=== PATIENT | female | born 1980 | race Caucasian/White ===

== ENCOUNTER 2017-08-25 10:25 | Emergency (ER) | payer OTHER ==
[2017-08-25 10:32] VITALS: BP 142/77
[2017-08-25] MEDS ORDERED: METOCLOPRAMIDE HCL 10 MG TABLET PO ONE (10:34)
[2017-08-25] MEDS ORDERED: ACETAMINOPHEN WITH CODEINE #3 TABLET PO ONE (10:34)
--- NOTE | 2017-08-25 10:34 | ER Document Report ---
ED General - General Chief Complaint: Leg Pain Stated Complaint: LEFT LEG PAIN Time Seen by Provider: 08/25/17 10:28 Mode of Arrival: Wheelchair Information source: Patient Notes: 37-year-old female presents with complaints of left calf pain that occurred suddenly after feeling a popping sensation when she had stood up. Patient notes last night she was having charley horse sensations in her calf. She denies any other DVT or PE risk factors. Patient denies any chest pain shortness of breath. Patient notes it hurts to ambulate but is able to dorsiflex the foot TRAVEL OUTSIDE OF THE [place] IN LAST 30 DAYS: No - HPI Onset: Just prior to arrival Onset/Duration: Sudden Quality of pain: Cramping, Sharp Severity: Mild Pain Level: 1 Associated symptoms: Body/muscle aches Exacerbated by: Movement Relieved by: Denies Similar symptoms previously: No Recently seen / treated by doctor: No - Related Data Allergies/Adverse Reactions: hydrocodone [Hydrocodone] Allergy (Verified 08/25/17 10:26) Past Medical History - Social History Smoking Status: Never Smoker Cigarette use (# per day): No Chew tobacco use (# tins/day): No Smoking Education Provided: No Family History: Reviewed & Not Pertinent Patient has suicidal ideation: No Patient has homicidal ideation: No - Past Medical History Cardiac Medical History: Reports: Hx Hypercholesterolemia, Hx Hypertension Endocrine Medical History: Reports: Hx Diabetes Mellitus Type 2 Renal/ Medical History: Denies: Hx Peritoneal Dialysis Past Surgical History: Reports: Hx Tonsillectomy - and adenoids - Immunizations Hx Diphtheria, Pertussis, Tetanus Vaccination: Yes Review of Systems - Review of Systems Notes: REVIEW OF SYSTEMS: CONSTITUTIONAL : Denies fever, chills, or sweats. Denies recent illness. EENT: Denies eye, ear, throat, or mouth pain or symptoms. Denies nasal or sinus congestion or discharge. Denies throat, tongue, or mouth swelling or difficulty swallowing. CARDIOVASCULAR: Denies chest pain. Denies palpitations or racing or irregular heart beat. Denies ankle edema. RESPIRATORY: Denies cough, cold, or chest congestion. Denies shortness of breath, difficulty breathing, or wheezing. GASTROINTESTINAL: Denies abdominal pain or distention. Denies nausea, vomiting , or diarrhea. Denies blood in vomitus, stools, or per rectum. Denies black, tarry stools. Denies constipation. GENITOURINARY: Denies difficulty urinating, painful urination, burning, frequency, blood in urine, or discharge. FEMALE GENITOURINARY: Denies vaginal bleeding, heavy or abnormal periods, irregular periods. Denies vaginal discharge or odor. MUSCULOSKELETAL: Admits to left calf pain SKIN: Denies rash, lesions or sores. HEMATOLOGIC : Denies easy bruising or bleeding. LYMPHATIC: Denies swollen, enlarged glands. NEUROLOGICAL: Denies confusion or altered mental status. Denies passing out or loss of consciousness. Denies dizziness or lightheadedness. Denies headache. Denies weakness or paralysis or loss of use of either side. Denies problems with gait or speech. Denies sensory loss, numbness, or tingling. Denies seizures. PSYCHIATRIC: Denies anxiety or stress. Denies depression, suicidal ideation, or homicidal ideation. ALL OTHER SYSTEMS REVIEWED AND NEGATIVE. PHYSICAL EXAMINATION: GENERAL: Well-appearing, well-nourished and in no acute distress. HEAD: Atraumatic, normocephalic. EYES: Pupils equal round and reactive to light, extraocular movements intact, conjunctiva are normal. ENT: Nares patent, oropharynx clear without exudates. Moist mucous membranes. NECK: Normal range of motion, supple without lymphadenopathy LUNGS: Breath sounds clear to auscultation bilaterally and equal. No wheezes rales or rhonchi. HEART: Regular rate and rhythm without murmurs ABDOMEN: Soft, nontender, nondistended abdomen. No guarding, no rebound. No masses appreciated. Female : deferred Musculoskeletal: Normal range of motion, no pitting or edema. No cyanosis. Achilles intact NEUROLOGICAL: Cranial nerves grossly intact. Normal speech, normal gait. Normal sensory, motor exams PSYCH: Normal mood, normal affect. SKIN: Warm, Dry, normal turgor, no rashes or lesions noted. Dictation was performed using [employer] voice recognition software Physical Exam - Vital signs Vitals: Temp Pulse Resp BP Pulse Ox 98.5 F 104 H 18 142/77 H 99 08/25/17 10:29 08/25/17 10:29 08/25/17 10:29 08/25/17 10:29 08/25/17 10:29 Course - Re-evaluation Re-evalutation: 08/25/17 10:38 I have very low suspicion for a DVT, however patient did have cramps in her calf last night. Doppler has been ordered otherwise this appears to be muscular skeletal nature there is no rupture of the Achilles tendon 08/25/17 11:16 Doppler was negative for DVT, I believe this is a muscular skeletal injury, patient will be given crutches orthopedic follow-up pain control and very strict return precautions After performing a Medical Screening Examination, I estimate there is LOW risk for INTRACRANIAL HEMORRHAGE, UNSTABLE SPINE FRACTURE, CENTRAL CORD SYNDROME, CAUDA EQUINA, THORACIC AORTIC DISSECTION, PNEUMOTHORAX, PERFORATED BOWEL, RUPTURED ABDOMINAL AORTIC ANEURYSM, ACUTE TENDON RUPTURE, COMPARTMENT SYNDROME, or OPEN FRACTURE, thus I consider the discharge disposition reasonable. Also, there is no evidence or peritonitis, sepsis, or toxicity. I have reevaluated this patient multiple times and no significant life threatening changes are noted. The patient and I have discussed the diagnosis and risks, and we agree with discharging home to follow-up with their primary doctor with the understanding that symptoms and presentations can change. We also discussed returning to the Emergency Department immediately if new or worsening symptoms occur. We have discussed the symptoms which are most concerning (e.g., bloody stool, fever, changing or worsening pain, vomiting) that necessitate immediate return. - Vital Signs Vital signs: Temp Pulse Resp BP Pulse Ox 98.5 F 104 H 18 142/77 H 99 08/25/17 10:29 08/25/17 10:29 08/25/17 10:29 08/25/17 10:29 08/25/17 10:29 - Diagnostic Test Radiology reviewed: Image reviewed - no dvt, Reports reviewed Discharge - Discharge Clinical Impression: Pain of left calf Condition: Stable Disposition: HOME, SELF-CARE Instructions: Leg Pain Nonspecific ([facility]), Leg Cramps ([facility]) Prescriptions: Acetaminophen with Codeine [Tylenol #3 Tablet] 1 each PO Q4HP PRN #14 tablet PRN Reason: Metoclopramide HCl [Reglan 10 mg Tablet] 1 - 2 tab PO Q6 #25 tablet Forms: Return to Work Referrals: KOURTNEY MARQUIS MD [ACTIVE STAFF] - Follow up in 3-5 days
--- NOTE | 2017-08-25 12:44 | XCELERA REPORT ---
[address] [address] Lower Extremity Venous Evaluation Name: GERALD WORLEY Age: 37 yrs Gender: Female : 1980 Patient Status: Emergency Patient Location: ER Study Date: 08/25/2017 10:54 AM Procedure: Color flow and duplex imaging of the veins of the left lower extremity as well as the right Common Femoral vein. Reason For Study: left lower extremity Ordering Physician: ANIKA SÁNCHEZ Performed By: Syeda Pena Right Sided Venous Evaluation The right common femoral vein is fully compressible. Spontaneous and phasic flow is present in the right common femoral vein. Left Sided Venous Evaluation Normal vessel filling wall to wall, compression and augmentation as well as Colour flow down to the infrageniculate veins. Interpretation Summary No duplex evidence of DVT or obstruction in the left lower extremity nor in the right Common Femoral vein. : ANIKA SÁNCHEZ > Hosea Brown
== END 2017-08-25 11:25 | disposition home or self-care (01) ==
LOC: ER 10:25
DX: M79.605 Pain in left leg (principal)
CPT/HCPCS: 93971; 99283

== ENCOUNTER 2020-07-23 14:02 | Inpatient (IN) | payer OTHER ==
--- NOTE | 2020-07-23 14:15 | ER Document Report ---
ED Medical Screen (RME) - General Chief Complaint: Shortness Of Breath Stated Complaint: SHORT OF BREATH,COUGH,NAUSEA Time Seen by Provider: 07/23/20 14:10 Primary Care Provider: MICKEY HECTOR MD [Primary Care Provider] - Follow up as needed Notes: HPI: 40-year-old obese female presenting to the emergency department complaining of significant shortness of breath over the last 2 to 3 days. Patient began with fatigue and cough mild shortness of breath 6 days ago. Patient had a Covid test at [facility] which resulted positive today. She states she cannot catch her breath today. Reports some chest discomfort with breathing. Patient is on oral control. Has not had any definitive fever but has had myalgia and fatigue PHYSICAL EXAMINATION: Patient is moderately dyspneic and tachypneic. Patient also tachcardic. Pulse oximetry 80% on room air. Lung sounds are decreased throughout. Spoke with Nickie the charge nurse about need for placement given hypoxia I have greeted and performed a rapid initial assessment of this patient. A comprehensive ED assessment and evaluation of the patient, analysis of test results and completion of medical decision making process will be conducted by an additional ED providers. Please note that clinical decision making for this patient was made during the 2019 pandemic of novel coronavirus which caused a significant strain on the healthcare system including at this particular facility. Criteria for admission discharge and level of care decisions as well as treatment decisions have necessarily changed TRAVEL OUTSIDE OF THE [place] IN LAST 30 DAYS: No - Related Data Allergies/Adverse Reactions: hydrocodone [Hydrocodone] Allergy (Verified 08/25/17 10:26) Past Medical History - Past Medical History Cardiac Medical History: Reports: Hx Hypercholesterolemia, Hx Hypertension Endocrine Medical History: Reports: Hx Diabetes Mellitus Type 2 Renal/ Medical History: Denies: Hx Peritoneal Dialysis Past Surgical History: Reports: Hx Tonsillectomy - and adenoids - Immunizations Hx Diphtheria, Pertussis, Tetanus Vaccination: Yes Physical Exam - Vital signs Vitals: Temp Pulse Resp BP Pulse Ox 101.0 F H 125 H 32 H 158/83 H 82 L 07/23/20 14:12 07/23/20 14:12 07/23/20 14:12 07/23/20 14:12 07/23/20 14:12 Course - Vital Signs Vital signs: Temp Pulse Resp BP Pulse Ox 101.0 F H 125 H 32 H 158/83 H 82 L 07/23/20 14:12 07/23/20 14:12 07/23/20 14:12 07/23/20 14:12 07/23/20 14:12 Doctor's Discharge - Discharge Referrals: MICKEY HECTOR MD [Primary Care Provider] - Follow up as needed
[2020-07-23] MEDS ORDERED: NORMAL SALINE 1000 ML 1,000 ML IV ONE (14:46)
[2020-07-23] MEDS ORDERED: ACETAMINOPHEN 650 MG SUPP.RECT PR ONE (14:46)
[2020-07-23 14:53] LABS: HEMATOCRIT 39.2 % (36.0-47.0); HEMOGLOBIN 13.2 g/dL (12.0-15.5); MEAN CORPUSCULAR HEMOGLOBIN 28.4 pg (27.0-33.4); MEAN CORPUSCULAR HGB CONC 33.6 g/dL (32.0-36.0); MEAN CORPUSCULAR VOLUME 84 fl (80-97); PLATELET COUNT 162 10^3/uL (150-450); RED BLOOD COUNT 4.64 10^6/uL (3.72-5.28); RED CELL DISTRIBUTION WIDTH 15.6 % (11.5-14.0); WHITE BLOOD COUNT 4.1 10^3/uL (4.0-10.5)
--- NOTE | 2020-07-23 14:53 | RADIOLOGY REPORT (SQ) ---
EXAM DESCRIPTION: CHEST SINGLE VIEW IMAGES COMPLETED DATE/TIME: 07/23/2020 2:40 pm REASON FOR STUDY: sob COMPARISON: None. EXAM PARAMETERS: NUMBER OF VIEWS: One view. TECHNIQUE: An AP view of the chest was obtained. RADIATION DOSE: NA LIMITATIONS: None. FINDINGS: LUNGS AND PLEURA: Low inspiratory lung volumes and diffuse patchy bilateral parenchymal op acities. There is no sizable pleural effusion or pneumothorax. MEDIASTINUM AND HILAR STRUCTURES: No mediastinal or hilar contour abnormality. HEART AND VASCULAR STRUCTURES: The cardiac silhouette and pulmonary vasculature are within normal reaves its. BONES: No acute findings. HARDWARE: None in the chest. OTHER: No other finding. IMPRESSION: Low inspiratory lung volumes and diffuse patchy bilateral parenchymal opacities. Differ ential considerations include a multifocal pneumonia (including COVID-19), ARDS and pulmonary edema. TECHNICAL DOCUMENTATION: JOB ID: [id number] 2010 [employer]- All Rights Reserved Reading location - IP/workstation name: [email or web address]
[2020-07-23 14:54] LABS: VENOUS BLOOD BASE EXCESS -7.1 mmol/L; VENOUS BLOOD HCO3 16.8 mmol/L (20-32); VENOUS BLOOD PCO2 29.5 mmHg (35-63); VENOUS BLOOD PH 7.37 (7.30-7.42)
[2020-07-23] MEDS ORDERED: DEXAMETHASONE SOD PHOS INJ 10 MG/1 ML VIAL IV ONE (14:56)
--- NOTE | 2020-07-23 15:00 | ER Document Report ---
ED General - General Chief Complaint: Shortness Of Breath Stated Complaint: SHORT OF BREATH,COUGH,NAUSEA Time Seen by Provider: 07/23/20 14:10 TRAVEL OUTSIDE OF THE [place] IN LAST 30 DAYS: No - HPI Notes: Patient is a 40-year-old female presents emergency department for evaluation of fever, cough, vomiting, diarrhea, dyspnea. She just had a positive Covid test earlier this week. Her breathing is worsened. She had a fever yesterday. Her cough has been largely nonproductive. She has had multiple episodes of nonbloody and nonbilious emesis. She has had 2-3 episodes of diarrhea in the last 24 hours. She denies any pain at this time. Her primary issue is difficulty breathing. She denies anosmia. - Related Data Allergies/Adverse Reactions: hydrocodone [Hydrocodone] Allergy (Verified 08/25/17 10:26) Past Medical History - General Information source: Patient - Social History Smoking Status: Never Smoker Drug Abuse: None Family History: Reviewed & Not Pertinent - Past Medical History Cardiac Medical History: Reports: Hx Hypercholesterolemia, Hx Hypertension Endocrine Medical History: Reports: Hx Diabetes Mellitus Type 2 Renal/ Medical History: Denies: Hx Peritoneal Dialysis Past Surgical History: Reports: Hx Tonsillectomy - and adenoids - Immunizations Hx Diphtheria, Pertussis, Tetanus Vaccination: Yes Review of Systems - Review of Systems Constitutional: See HPI EENT: No symptoms reported Cardiovascular: No symptoms reported Respiratory: See HPI Gastrointestinal: See HPI Genitourinary: No symptoms reported Musculoskeletal: No symptoms reported Skin: No symptoms reported Neurological/Psychological: No symptoms reported Physical Exam - Vital signs Vitals: Temp Pulse Resp BP Pulse Ox 101.0 F H 125 H 32 H 158/83 H 82 L 07/23/20 14:12 07/23/20 14:12 07/23/20 14:12 07/23/20 14:12 07/23/20 14:12 - Notes Notes: Is a 40-year-old female who appears her stated age in a moderate amount of distress. She is markedly tachypneic with increased work of breathing. Nailbeds are cyanotic. Vital signs reviewed, please refer to chart. Head is normocephalic, atraumatic. Pupils equal round, reactive to light. Neck is supple without meningismus. Heart sounds are distant. Lungs reveal diminished breath sounds but no wheezes, rales, rhonchi. Difficult to auscultate over BiPAP, set up during the course of my exam. Abdomen is obese, nontender, normoactive bowel sounds throughout. Extremities without clubbing. Posterior calves are nontender. Peripheral pulses are equal. Skin is warm and dry. Patient is awake, alert, neurological exam is nonfocal. Course - Re-evaluation Re-evalutation: 07/23/20 14:59 Patient presents emergency department for evaluation. Upon initial triage, patient was seen by the pit provider to be significantly hypoxic and placed back in her room. She was placed on oxygen per nasal cannula, but she remained cyanotic, and decision was made to initiate BiPAP therapy. She was febrile, I did order Tylenol to be administered rectally, as well as IV dexamethasone given her Covid positive status and significant hypoxia. Septic work-up ordered. Given her vomiting and diarrhea I am inclined to give a liter of fluids, particularly given her tachycardia and fever, as well as her tachypnea, which would be increasing her sensible losses. Patient has improved her oxygenation on BiPAP but she remains markedly tachypneic. Awaiting VBG. Given her Covid positive status I would prefer to defer intubation if possible. 07/23/20 17:20 Patient has remained stable on BiPAP. She is oxygenating between 97 and 99% with a BiPAP setting of 14/10, 60% FiO2. She states that overall she still feels poorly but her breathing feels improved. I spoke with Dr. Hurt. I made him aware of the fact that the CTA has not yet been performed. He asked if the patient could possibly be titrated down to high flow O2. We are still waiting for respiratory to come along to bring the patient to CT. At this point I do have her on a nonrebreather, her respiratory rate is high but she is 92%. We will continue to monitor to see if her oxygenation holds. Otherwise, patient will be admitted to [facility]. 07/23/20 19:54 Rechecked patient. Patient is tolerating high flow, respiratory rate has improved although she still remains intermittently tachypneic. Heart rate 110, she is 93% on room air. She remains overall stable. - Vital Signs Vital signs: Temp Pulse Resp BP Pulse Ox 101.0 F H 125 H 37 H 155/82 H 97 07/23/20 14:12 07/23/20 14:12 07/23/20 16:01 07/23/20 16:01 07/23/20 16:01 - Laboratory Results Result Diagrams: 07/23/20 14:34 07/23/20 14:34 Laboratory Results Interpreted: 07/23/20 07/23/20 07/23/20 14:34 14:34 14:34 RDW 15.6 H VBG pCO2 29.5 L VBG HCO3 16.8 L Sodium 135.0 L Carbon Dioxide 17 L Glucose 147 H AST 53 H Alkaline Phosphatase 222 H 07/23/20 15:00 Chest X-Ray 07/23/20 14:11 IMPRESSION: Low inspiratory lung volumes and diffuse patchy bilateral parenchymal opacities. Differential considerations include a multifocal pneumonia (including COVID-19), ARDS and pulmonary edema. Critical Laboratory Results Reviewed: No Critical Results - Radiology Results Critical Radiology Results Reviewed: No Critical Results Critical Care Note - Critical Care Note Total time excluding time spent on procedures (mins): 45 Discharge - Discharge Clinical Impression: Pneumonia due to COVID-19 virus, Hypoxia Condition: Stable Disposition: ADMITTED INPATIENT Admitting Provider: Blu (Hospitalist) Unit Admitted: [facility]
[2020-07-23 15:11] LABS: ALBUMIN 3.6 g/dL (3.5-5.0); ALKALINE PHOSPHATASE 222 U/L (38-126); ANION GAP 12 (5-19); ASPARTATE AMINO TRANSFERASE 53 U/L (14-36); BILIRUBIN,DIRECT 0.3 mg/dL (0.0-0.4); BILIRUBIN,TOTAL 0.6 mg/dL (0.2-1.3); BLOOD UREA NITROGEN 8 mg/dL (7-20); CALCIUM 8.9 mg/dL (8.4-10.2); CARBON DIOXIDE 17 mmol/L (22-30); CHLORIDE 106 mmol/L (98-107); GLUCOSE 147 mg/dL (75-110); POTASSIUM 4.2 mmol/L (3.6-5.0); TOTAL PROTEIN 6.4 g/dL (6.3-8.2)
[2020-07-23 15:15] LABS: ABSOLUTE MONOCYTES # (MANUAL) 0.4 10^3/uL (0.1-1.4); BASOPHILS % (MANUAL) 0 % (0-2); EOSINOPHILS % (MANUAL) 1 % (0-6); LYMPHOCYTES % (MANUAL) 24 % (13-45); MONOCYTES % (MANUAL) 9 % (3-13); SEGMENTED NEUTROPHILS % (MAN) 66 % (42-78); TOTAL CELLS COUNTED 100
[2020-07-23 15:16] LABS: ANISOCYTOSIS SLIGHT; PLATELET COMMENT ADEQUATE
[2020-07-23 15:22] LABS: NT PRO BNP 56 pg/mL (<125)
[2020-07-23 15:23] LABS: TROPONIN I < 0.012 ng/mL
[2020-07-23 16:59] LABS: A TYPE INFLUENZA AG NEGATIVE (NEGATIVE); B INFLUENZA AG NEGATIVE (NEGATIVE)
[2020-07-23] MEDS ORDERED: MAG HYDROX/AL HYDROX/SIMETH SUSP 30 ML UDCUP PO PRN (17:41)
[2020-07-23] MEDS ORDERED: ONDANSETRON HCL INJ/PF 4 MG/2 ML SDV IV PRN (17:41)
[2020-07-23] MEDS ORDERED: GLUCAGON,HUMAN RECOMB 1 MG INJ IM PRN (17:57)
[2020-07-23] MEDS ORDERED: DEXTROSE 40% GEL 15 GM TUBE PO PRN ×2 (17:57)
[2020-07-23] MEDS ORDERED: DEXTROSE 50%-WATER 25 GM/50 ML DISP.SYRIN IV PRN ×2 (17:57)
[2020-07-23] MEDS ORDERED: AZITHROMYCIN INJ 500 MG VIAL IV ONE (17:58)
[2020-07-23] MEDS ORDERED: AZITHROMYCIN 250 MG TABLET PO SCH (18:00)
[2020-07-23] MEDS ORDERED: GUAIFENESIN/D-METHORPHAN (200-20 MG) SYRUP 10 ML PO PRN (18:02)
--- NOTE | 2020-07-23 18:12 | PDOC H&P ---
History of Present Illness Admission Date/PCP: 07/23/20 17:47 MICKEY HECTOR MD Patient complains of: Shortness of breath, cough History of Present Illness: GERALD WORLEY is a 40 year old female with morbid obesity, diabetes mellitus type 2, hypertension, who presents to the hospital for evaluation of progressive shortness of breath for the past 3 days. She has also been having a worsening cough nonproductive of sputum. She denies any hemoptysis. She also has been spiking fevers. Her symptoms started on Tuesday at which time she went to [facility] in [place] to get tested for Covid. She was informed today that her Covid test came back positive. She had doses associated diarrhea nausea and vomiting. When she presented to the ER, ER provider notifies me that her pulse ox was in the high 70s to low 80s. She was placed on nasal cannula without much improvement and subsequently placed on the BiPAP. She has been tachypneic throughout in the 40s. She is conversationally dyspneic. Past Medical History Cardiac Medical History: Reports: Hyperlipidema, Hypertension Endocrine Medical History: Reports: Diabetes Mellitus Type 2 Past Surgical History Past Surgical History: Reports: Tonsillectomy - and adenoids Social History Information Source: Patient Smoking Status: Never Smoker Electronic Cigarette use?: No Frequency of Alcohol Use: Occasional Hx Recreational Drug Use: No - Advance Directive Resuscitation Status: Full Code Family History Family History: DM, Hypertension Parental Family History Reviewed: Yes Children Family History Reviewed: Yes Sibling(s) Family History Reviewed.: Yes Medication/Allergy Home Medications: Lisinopril 10 mg PO DAILY 07/25/11 Metformin HCl 850 mg PO BID 07/25/11 Zyrtec 10 mg PO DAILY 07/25/11 Ibuprofen [Motrin 800 Mg Tablet] 800 mg PO TID 07/26/11 Famotidine [Pepcid 20 mg Tablet] 20 mg PO DAILY #60 tablet 02/05/15 Acetaminophen with Codeine [Tylenol #3 Tablet] 1 each PO Q4HP PRN #14 tablet 08/25/17 Metoclopramide HCl [Reglan 10 mg Tablet] 1 - 2 tab PO Q6 #25 tablet 08/25/17 Allergies/Adverse Reactions: hydrocodone [Hydrocodone] Allergy (Verified 08/25/17 10:26) Review of Systems Constitutional: PRESENT: chills, fatigue, fever(s) Eyes: ABSENT: visual disturbances Ears: ABSENT: hearing changes Nose, Mouth, and Throat: PRESENT: headache(s) - Occasional Cardiovascular: ABSENT: chest pain Gastrointestinal: PRESENT: diarrhea, nausea, vomiting. ABSENT: abdominal pain Genitourinary: ABSENT: dysuria Musculoskeletal: ABSENT: back pain Integumentary: ABSENT: diaphoresis Neurological: ABSENT: dizziness Endocrine: ABSENT: polyuria Allergic/Immunologic: ABSENT: seasonal rhinorrhea Physical Exam Vital Signs: Temp Pulse Resp BP Pulse Ox 101.0 F H 125 H 37 H 155/82 H 97 07/23/20 14:12 07/23/20 14:12 07/23/20 16:01 07/23/20 16:01 07/23/20 16:01 Intake & Output 07/22/20 07/23/20 07/24/20 06:59 06:59 06:59 Weight 148.5 kg General appearance: PRESENT: cooperative, mild distress, morbidly obese. ABSENT: disheveled, hard of hearing, thin Head exam: PRESENT: normocephalic Eye exam: ABSENT: periorbital swelling Mouth exam: PRESENT: neck supple Neck exam: ABSENT: JVD Respiratory exam: PRESENT: crackles - Diffuse bilateral, symmetrical, tachypnea, other - Gets out of breath when talking. ABSENT: accessory muscle use, decreased breath sounds, wheezes Cardiovascular exam: PRESENT: +S1, +S2, tachycardia. ABSENT: irregular rhythm GI/Abdominal exam: PRESENT: soft. ABSENT: rebound, rigid, tenderness Extremities exam: ABSENT: pedal edema Neurological exam: PRESENT: alert, awake, oriented to person, oriented to place, oriented to time, oriented to situation Psychiatric exam: ABSENT: agitated, anxious Focused psych exam: ABSENT: pressured speech Skin exam: ABSENT: jaundice Results Laboratory Results: 07/23/20 14:34 07/23/20 14:34 07/23/20 07/23/20 07/23/20 14:34 14:34 14:34 WBC 4.1 RBC 4.64 Hgb 13.2 Hct 39.2 MCV 84 MCH 28.4 MCHC 33.6 RDW 15.6 H Plt Count 162 Seg Neutrophils % Not Reportable VBG pH VBG pCO2 VBG HCO3 VBG Base Excess Sodium 135.0 L Potassium 4.2 Chloride 106 Carbon Dioxide 17 L Anion Gap 12 BUN 8 Creatinine 0.65 Est GFR ( Amer) > 60 Glucose 147 H Lactic Acid 1.7 Calcium 8.9 Total Bilirubin 0.6 AST 53 H Alkaline Phosphatase 222 H Total Protein 6.4 Albumin 3.6 07/23/20 14:34 WBC RBC Hgb Hct MCV MCH MCHC RDW Plt Count Seg Neutrophils % VBG pH 7.37 VBG pCO2 29.5 L VBG HCO3 16.8 L VBG Base Excess -7.1 Sodium Potassium Chloride Carbon Dioxide Anion Gap BUN Creatinine Est GFR ( Amer) Glucose Lactic Acid Calcium Total Bilirubin AST Alkaline Phosphatase Total Protein Albumin 07/23/20 14:34 Troponin I < 0.012 NT-Pro-B Natriuret Pep 56 Impressions: Chest X-Ray 07/23/20 14:11 IMPRESSION: Low inspiratory lung volumes and diffuse patchy bilateral p arenchymal opacities. Differential considerations include a multifocal pneumonia (including COVID-19), ARDS and pulmonary edema. Assessment and Plan - Diagnosis (1) Acute respiratory failure with hypoxia Is this a current diagnosis for this admission?: Yes Plan: Significantly hypoxic on presentation secondary to COVID-19 pneumonia. Patient currently requiring BiPAP at 60% FiO2. We will try to transition her to high flow nasal cannula if tolerated to maintain sats above 91%. If unable to tolerate we will try her on CPAP at 10. ABG in the morning (2) Pneumonia due to COVID-19 virus Is this a current diagnosis for this admission?: Yes Plan: Since her symptoms started about 3 days ago. Tested positive outpatient at [facility]. We will obtain records. Dexamethasone IV Started on multivitamin and zinc supplements. Start remdesivir & convalescent plasma We will place patient on empiric antibiotics until we obtain her positive Covid test records. Antipyretics as needed for fever (3) Diarrhea Qualifiers: Diarrhea type: infectious Qualified Code(s): A09 - Infectious gastroenteritis and colitis, unspecified Is this a current diagnosis for this admission?: Yes Plan: Likely secondary to COVID-19. Venous blood gas and BMP shows evidence of non- anion gap metabolic acidosis from diarrhea as well as mild respiratory alkalosis likely from her hyperventilation. Placed on lactated Ringer's (4) Morbid obesity with BMI of 50.0-59.9, adult Is this a current diagnosis for this admission?: Yes Plan: BMI of 54.5. This puts her at significantly increased risk of a complicated COVID-19 course of infection. (5) Diabetes mellitus type 2 in obese Is this a current diagnosis for this admission?: Yes Plan: Sliding scale insulin, Accu-Cheks. ADA diet. - Time Time Spent with patient: 35 or more minutes Anticipated Discharge Disposition: Home, Self Care Anticipated Discharge Timeframe: unknown
[2020-07-23] MEDS ORDERED: IBUPROFEN 400 MG TABLET PO PRN (18:21)
--- NOTE | 2020-07-23 18:26 | RADIOLOGY REPORT (SQ) ---
EXAM DESCRIPTION: CTA CHEST IMAGES COMPLETED DATE/TIME: 07/23/2020 5:50 pm REASON FOR STUDY: dyspnea, COVID+, hypoxia COMPARISON: None. TECHNIQUE: CT scan of the chest performed using helical scanning technique with dynamic intravenous contrast injection. Images reviewed with lung, soft tissue and bone windows. Reconstructed coronal and sagittal MPR images reviewed. Additional 3 dimensional post-processing performed to develop Maximal Intensity Projection images (TN P). All images stored on PACS. All CT scanners at this facility use dose modulation, iterative reconstruction, and/or weight based d osing when appropriate to reduce radiation dose to as low as reasonably achievable (ALARA). [facility]: Dose Right [facility]: CareDose [facility]: Dose Right [facility]: Teradose 4D [facility]: Unified Social CONTRAST TYPE AND DOSE: contrast/concentration: Isovue 350.00 mmol/ml; Total Contrast Delivered: 75. 0 ml; Total Saline Delivered: 43.0 ml Contrast bolus adequate for pulmonary arteries and aorta. RENAL FUNCTION: None required. The patient is less than 50 years old. RADIATION DOSE: CT Rad equipment meets quality standard of care and radiation dose reduction techniq ues were employed. CTDIvol: 21.1 - 41.8 mGy. DLP: 1406 mGy-cm. . LIMITATIONS: None. FINDINGS: LUNGS AND PLEURA: Diffuse dense opacities throughout both lungs. No effusions. Typical a ppearance of covid 19. AORTA AND GREAT VESSELS: No aneurysm. Contrast bolus not optimized for the aorta. HEART: No pericardial effusion. No significant coronary artery calcifications. PULMONARY ARTERIES: No emboli visualized in the main pulmonary arteries or the segmental branches. HILAR AND MEDIASTINAL STRUCTURES: No identified masses or abnormal nodes. HARDWARE: None in the chest. UPPER ABDOMEN: Portable enhancing mass in the mid liver. THYROID AND OTHER SOFT TISSUES: No masses. No adenopathy. BONES: No acute or significant finding. 3D MIPS: Confirm above findings. OTHER: No other significant finding. IMPRESSION: Extensive parenchymal opacities throughout the lungs typical of covid 19. No pulmonary emboli. Questionable liver mass. Evaluate when patient is stable. COMMENT: Quality ID # [id number]: Final reports with documentation of one or more dose reduction techniques (e.g., Automated exposure control, adjustment of the mA and/or kV according to patient size, use of iterative reconstruction technique) TECHNICAL DOCUMENTATION: JOB ID: [id number] 2010 [employer]- All Rights Reserved Reading location - IP/workstation name: [email or web address]
[2020-07-23] MEDS: ASCORBIC ACID 500 MG TABLET PO SCH (18:54)
[2020-07-23] MEDS: CEFTRIAXONE 2 GM/D5W RTU 2 GM/50 ML RTUPB IV SCH (18:55)
[2020-07-23] MEDS ORDERED: IVERMECTIN 3 MG TABLET PO ONE ×2 (19:00→22:00)
[2020-07-23] MEDS ORDERED: AZITHROMYCIN 500 MG in DEXTROSE 5%-WATER 250 ML IV ONE (19:15)
--- NOTE | 2020-07-23 21:55 | EKG REPORT ---
SEVERITY:- ABNORMAL ECG - SINUS TACHYCARDIA PROBABLE LEFT ATRIAL ABNORMALITY NONSPECIFIC T ABNORMALITIES, DIFFUSE LEADS : Confirmed by: Trinity Taylor MD 23-Jul-2020 21:55:12
[2020-07-23] MEDS ORDERED: DEXAMETHASONE SOD PHOS INJ 10 MG/1 ML VIAL IV SCH (22:00)
[2020-07-23] MEDS ORDERED: REMDESIVIR 100 MG in NORMAL SALINE 250 ML IV SCH (22:00)
[2020-07-23] MEDS ORDERED: REMDESIVIR 200 MG in NORMAL SALINE 250 ML IV ONE (22:00)
[2020-07-23] MEDS: FAMOTIDINE 20 MG TABLET PO SCH (22:34)
[2020-07-23] MEDS: DEXAMETHASONE SOD PHOSPHATE INJ 4 MG/1 ML VIAL IV SCH (22:34)
[2020-07-23] MEDS: INSULIN LISPRO 100 UNIT/ML 3 ML VIAL SUBCUT SCH (22:34)
[2020-07-24] MEDS: ALBUTEROL SULFATE HFA (90 MCG/PUFF) 8 GM MDI IH SCH ×5 (01:07→17:17)
[2020-07-24] MEDS: RINGERS SOLUTION,LACTATED 1,000 ML IV PRN ×2 (02:00→22:19)
[2020-07-24 05:58] LABS: ABSOLUTE LYMPHOCYTES (AUTO) 0.8 10^3/uL (0.5-4.7); ABSOLUTE MONOCYTES (AUTO) 0.3 10^3/uL (0.1-1.4); ABSOLUTE NEUT (AUTO) 3.4 10^3/uL (1.7-8.2); BASOPHILS % (AUTO) 0.2 % (0-2); EOSINOPHILS % (AUTO) 0.1 % (0-6); HEMATOCRIT 38.7 % (36.0-47.0); HEMOGLOBIN 12.6 g/dL (12.0-15.5); LYMPHOCYTES % (AUTO) 17.4 % (13-45); MEAN CORPUSCULAR HEMOGLOBIN 27.8 pg (27.0-33.4); MEAN CORPUSCULAR HGB CONC 32.6 g/dL (32.0-36.0); MEAN CORPUSCULAR VOLUME 85 fl (80-97); MONOCYTES % (AUTO) 6.4 % (3-13); PLATELET COUNT 176 10^3/uL (150-450); RED BLOOD COUNT 4.54 10^6/uL (3.72-5.28); RED CELL DISTRIBUTION WIDTH 15.8 % (11.5-14.0); SEGMENTED NEUTROPHILS % (AUTO) 75.9 % (42-78); TOTAL CELLS COUNTED % (AUTO) 100 %; WHITE BLOOD COUNT 4.5 10^3/uL (4.0-10.5)
[2020-07-24 06:23] LABS: INTERNATIONAL RATION (INR) 0.97; PROTHROMBIN TIME 13.1 SEC (11.4-15.4)
[2020-07-24 06:24] LABS: PARTIAL THROMBOPLASTIN TIME 30.3 SEC (23.5-35.8)
[2020-07-24 06:26] LABS: D-DIMER 1.63 ug/mL (0.00-0.50)
[2020-07-24 06:30] LABS: ANION GAP 15 (5-19); BLOOD UREA NITROGEN 14 mg/dL (7-20); CALCIUM 8.8 mg/dL (8.4-10.2); CARBON DIOXIDE 13 mmol/L (22-30); CHLORIDE 110 mmol/L (98-107); CREATINE KINASE 424 U/L (30-135); GLUCOSE 248 mg/dL (75-110); POTASSIUM 4.9 mmol/L (3.6-5.0)
[2020-07-24 06:45] LABS: C-REACTIVE PROTEIN 223.9 mg/L (<10.0)
[2020-07-24 09:59] LABS: ARTERIAL BLOOD BASE EXCESS -11.2 mmol/L; ARTERIAL BLOOD H2CO3 0.82 mmol/L (1.05-1.35); ARTERIAL BLOOD HCO3 13.4 mmol/L (20-24); ARTERIAL BLOOD PCO2 27.4 mmHg (35-45); ARTERIAL BLOOD PH 7.31 (7.35-7.45); ARTERIAL BLOOD PO2 167.3 mmHg (80-100); ARTERIAL BLOOD TOTAL CO2 14.3 mmol/L (21-25)
[2020-07-24] MEDS ORDERED: ENOXAPARIN SODIUM INJ 40 MG/0.4 ML DISP.SYRIN SUBCUT SCH ×2 (10:00)
[2020-07-24 10:03] LABS: ARTERIAL BLOOD FIO2 100%
[2020-07-24] MEDS: INSULIN LISPRO 100 UNIT/ML 3 ML VIAL SUBCUT SCH ×4 (10:19→22:17)
[2020-07-24] MEDS: ENOXAPARIN SODIUM INJ 60 MG/0.6 ML DISP.SYRIN SUBCUT SCH ×2 (10:19→22:17)
[2020-07-24] MEDS: DEXAMETHASONE SOD PHOSPHATE INJ 4 MG/1 ML VIAL IV SCH ×2 (10:20→22:17)
[2020-07-24] MEDS: GLIMEPIRIDE 4 MG TABLET PO SCH (10:20)
[2020-07-24] MEDS: ASCORBIC ACID 500 MG TABLET PO SCH ×2 (10:20→17:14)
[2020-07-24] MEDS: LISINOPRIL 10 MG TABLET PO SCH (10:20)
[2020-07-24] MEDS: FAMOTIDINE 20 MG TABLET PO SCH ×2 (10:20→22:18)
[2020-07-24] MEDS: ZINC SULFATE 220 MG CAPSULE PO SCH (10:20)
[2020-07-24] MEDS: CHOLECALCIFEROL (D3) 1,000 UNIT (25 MCG) TABLET PO SCH (10:20)
[2020-07-24] MEDS ORDERED: SODIUM BICARBONATE 8.4% INJ 50 MEQ/50 ML DISP.SYRIN IV ONE (12:15)
--- NOTE | 2020-07-24 14:55 | PDOC PROGRESS REPORT ---
Subjective Date:: 07/24/20 Subjective:: Patient notably had saturations this morning 1 on the 100% CPAP. She later impr kathryn after some adjustments to her settings. She still feels quite short of breath and gets very conversationally dyspneic. Remains tachypneic, saturating in the 50s to 60s this morning. Currently her tachypnea has improved and she is down to the 30s to 40s. Reason For Visit: COVID PNA,HYPOXIA Physical Exam Vital Signs: Temp Pulse Resp BP Pulse Ox 98.6 F 107 H 39 H 124/69 90 L 07/24/20 11:25 07/24/20 13:55 07/24/20 12:19 07/24/20 11:25 07/24/20 12:19 Intake & Output 07/23/20 07/24/20 07/25/20 06:59 06:59 06:59 Intake Total 1550 260 Output Total 400 Balance 1150 260 Weight 148 kg General appearance: PRESENT: cooperative, mild distress Head exam: PRESENT: normocephalic Neck exam: ABSENT: JVD Respiratory exam: PRESENT: crackles, symmetrical, tachypnea, other - Mildly labored mostly when talking. ABSENT: accessory muscle use, retraction, stridor, wheezes Cardiovascular exam: PRESENT: +S1, +S2, tachycardia. ABSENT: irregular rhythm GI/Abdominal exam: PRESENT: soft. ABSENT: rebound, rigid, tenderness Neurological exam: PRESENT: alert, awake, oriented to person, oriented to place, oriented to time, oriented to situation Skin exam: PRESENT: normal color. ABSENT: cyanosis, mottled Results Laboratory Results: 07/24/20 05:12 07/24/20 05:12 07/23/20 07/23/20 07/23/20 14:34 14:34 14:34 WBC 4.1 RBC 4.64 Hgb 13.2 Hct 39.2 MCV 84 MCH 28.4 MCHC 33.6 RDW 15.6 H Plt Count 162 Seg Neutrophils % Not Reportable Carbonic Acid HCO3/H2CO3 Ratio ABG pH ABG pCO2 ABG pO2 ABG HCO3 ABG O2 Saturation ABG Base Excess VBG pH VBG pCO2 VBG HCO3 VBG Base Excess FiO2 Sodium 135.0 L Potassium 4.2 Chloride 106 Carbon Dioxide 17 L Anion Gap 12 BUN 8 Creatinine 0.65 Est GFR ( Amer) > 60 Glucose 147 H Lactic Acid 1.7 Calcium 8.9 Ferritin Total Bilirubin 0.6 AST 53 H Alkaline Phosphatase 222 H C-Reactive Protein Total Protein 6.4 Albumin 3.6 Blood Type Antibody Screen 07/23/20 07/23/20 07/24/20 14:34 19:07 05:12 WBC RBC Hgb Hct MCV MCH MCHC RDW Plt Count Seg Neutrophils % Carbonic Acid HCO3/H2CO3 Ratio ABG pH ABG pCO2 ABG pO2 ABG HCO3 ABG O2 Saturation ABG Base Excess VBG pH 7.37 VBG pCO2 29.5 L VBG HCO3 16.8 L VBG Base Excess -7.1 FiO2 Sodium 137.8 Potassium 4.9 Chloride 110 H Carbon Dioxide 13 L Anion Gap 15 BUN 14 Creatinine 0.54 Est GFR ( Amer) > 60 Glucose 248 H Lactic Acid Calcium 8.8 Ferritin 760.00 H Total Bilirubin AST Alkaline Phosphatase C-Reactive Protein 223.9 H Total Protein Albumin Blood Type A POSITIVE Antibody Screen NEGATIVE 07/24/20 07/24/20 05:12 09:44 WBC 4.5 RBC 4.54 Hgb 12.6 Hct 38.7 MCV 85 MCH 27.8 MCHC 32.6 RDW 15.8 H Plt Count 176 Seg Neutrophils % 75.9 Carbonic Acid 0.82 L HCO3/H2CO3 Ratio 16:1 ABG pH 7.31 L ABG pCO2 27.4 L ABG pO2 167.3 H ABG HCO3 13.4 L ABG O2 Saturation 99.0 H ABG Base Excess -11.2 VBG pH VBG pCO2 VBG HCO3 VBG Base Excess FiO2 100% Sodium Potassium Chloride Carbon Dioxide Anion Gap BUN Creatinine Est GFR ( Amer) Glucose Lactic Acid Calcium Ferritin Total Bilirubin AST Alkaline Phosphatase C-Reactive Protein Total Protein Albumin Blood Type Antibody Screen 07/23/20 07/24/20 14:34 05:12 Creatine Kinase 424 H Troponin I < 0.012 NT-Pro-B Natriuret Pep 56 Impressions: Chest X-Ray 07/23/20 14:11 IMPRESSION: Low inspiratory lung volumes and diffuse patchy bilateral parenchymal opacities. Differential considerations include a multifocal pneumonia (including COVID-19), ARDS and pulmonary edema. Chest/Abdomen CTA 07/23/20 15:00 IMPRESSION: Extensive parenchymal opacities throughout the lungs typical of covid 19. No pulmonary emboli. Questionable liver mass. Evaluate when patient is stable. Assessment and Plan - Diagnosis (1) Acute respiratory failure with hypoxia Is this a current diagnosis for this admission?: Yes Plan: Significantly hypoxic on presentation secondary to COVID-19 pneumonia. Patient was notably quite hypoxic on the pulse oximeter this morning on CPAP 100%. Increase his PEEP to 16. Pulse ox improved subsequently. However, on my evaluation her pulse ox read to be in the 88-90%. Surprisingly her ABG actually reviewed PO2 of 160 so we replaced a pulse ox meter. We were able to de-escalate her to 70% FiO2 this afternoon. BNP is normal She remains critical. (2) Pneumonia due to COVID-19 virus Is this a current diagnosis for this admission?: Yes Plan: Since her symptoms started about 3 days prior to presentation. Tested positive outpatient at [facility]. We will obtain records. Dexamethasone IV multivitamin and zinc supplements. Remdesivir day 2 s/p 1 dose of Ivermectin Will go ahead and give Covalescent plasma this afternoon and give a dose of IV lasix to prevent volume overload C/w empiric abx Antipyretics as needed for fever Updated her mom on patient's condition. (3) Tachypnea Is this a current diagnosis for this admission?: Yes Plan: ABG reveals metabolic acidosis and hyperventilation. Tachypnea is secondary to hypoxia and her COVID-19 pneumonia. However metabolic acidosis is also contributing to her hyperventilation. After correcting her metabolic Acidosis, if tachypnea is still severe, will try some small doses of morphine. (4) Metabolic acidosis Is this a current diagnosis for this admission?: Yes Plan: Has hyperchloremic normal anion gap metabolic acidosis. She did have a little bit of diarrhea but none today. Renal function is normal. Her bicarb is quite low and pH is 7.31 despite respiratory alkalosis. Administered half amp of bicarb bolus. She became less tachypneic afterwards. We will get a repeat bl ood gas at 3 PM. Continue lactated Ringer's. Check lactic acid. (5) Diarrhea Qualifiers: Diarrhea type: infectious Qualified Code(s): A09 - Infectious gastroenteritis and colitis, unspecified Is this a current diagnosis for this admission?: Yes Plan: Likely secondary to COVID-19. Monitor. Seems to have decreased. Gentle IV fluids. (6) Morbid obesity with BMI of 50.0-59.9, adult Is this a current diagnosis for this admission?: Yes Plan: BMI of 54.5. This puts her at significantly increased risk of a complicated COVID-19 course of infection. (7) Diabetes mellitus type 2 in obese Is this a current diagnosis for this admission?: Yes Plan: Sliding scale insulin, Accu-Cheks. ADA diet. Resume the glimepiride. We will add on a small dose of Lantus as she remains hyperglycemic in the 200s. - Time Time Spent with patient: 15-24 minutes Anticipated Discharge Disposition: Home, Self Care Anticipated Discharge Timeframe: Unknown
[2020-07-24] MEDS ORDERED: FUROSEMIDE INJ/PF 20 MG/2 ML SDV IV ONE (15:00)
[2020-07-24 15:20] LABS: ARTERIAL BLOOD BASE EXCESS -8.9 mmol/L; ARTERIAL BLOOD H2CO3 0.73 mmol/L (1.05-1.35); ARTERIAL BLOOD HCO3 14.2 mmol/L (20-24); ARTERIAL BLOOD O2 SATURATION 96.3 % (94-98); ARTERIAL BLOOD PCO2 24.2 mmHg (35-45); ARTERIAL BLOOD PH 7.39 (7.35-7.45); ARTERIAL BLOOD PO2 83.3 mmHg (80-100)
[2020-07-24 15:21] LABS: ARTERIAL BLOOD FIO2 70%
[2020-07-24] MEDS ORDERED: INSULIN GLARGINE,HUM.REC.ANLOG 1,000 UNIT/10 ML VIAL (PYX) SUBCUT ONE (17:06)
[2020-07-24] MEDS: AZITHROMYCIN 250 MG TABLET PO SCH (17:11)
[2020-07-24] MEDS: INSULIN GLARGINE,HUM.REC.ANLOG 1,000 UNIT/10 ML VIAL SUBCUT SCH (17:13)
[2020-07-24] MEDS: PRAMIPEXOLE DI-HCL 0.5 MG TABLET PO SCH (17:14)
[2020-07-24] MEDS: CEFTRIAXONE 2 GM/D5W RTU 2 GM/50 ML RTUPB IV SCH (17:16)
[2020-07-24] MEDS: REMDESIVIR 100 MG in NORMAL SALINE 250 ML IV SCH (22:16)
[2020-07-25] MEDS: ACETAMINOPHEN 325 MG TABLET PO PRN ×2 (03:21→10:38)
[2020-07-25] MEDS: ALBUTEROL SULFATE HFA (90 MCG/PUFF) 8 GM MDI IH SCH ×4 (03:54→17:05)
[2020-07-25 05:33] LABS: VENOUS BLOOD BASE EXCESS -5.3 mmol/L; VENOUS BLOOD HCO3 19.4 mmol/L (20-32); VENOUS BLOOD PCO2 35.2 mmHg (35-63); VENOUS BLOOD PH 7.36 (7.30-7.42)
[2020-07-25 05:34] LABS: ABSOLUTE LYMPHOCYTES (AUTO) 0.8 10^3/uL (0.5-4.7); ABSOLUTE MONOCYTES (AUTO) 0.5 10^3/uL (0.1-1.4); ABSOLUTE NEUT (AUTO) 5.4 10^3/uL (1.7-8.2); BASOPHILS % (AUTO) 0.1 % (0-2); EOSINOPHILS % (AUTO) 0.1 % (0-6); HEMATOCRIT 35.3 % (36.0-47.0); HEMOGLOBIN 11.8 g/dL (12.0-15.5); LYMPHOCYTES % (AUTO) 11.7 % (13-45); MEAN CORPUSCULAR HEMOGLOBIN 28.5 pg (27.0-33.4); MEAN CORPUSCULAR HGB CONC 33.5 g/dL (32.0-36.0); MEAN CORPUSCULAR VOLUME 85 fl (80-97); MONOCYTES % (AUTO) 7.9 % (3-13); PLATELET COUNT 220 10^3/uL (150-450); RED BLOOD COUNT 4.15 10^6/uL (3.72-5.28); RED CELL DISTRIBUTION WIDTH 15.4 % (11.5-14.0); SEGMENTED NEUTROPHILS % (AUTO) 80.2 % (42-78); TOTAL CELLS COUNTED % (AUTO) 100 %; WHITE BLOOD COUNT 6.8 10^3/uL (4.0-10.5)
[2020-07-25 05:57] LABS: ANION GAP 13 (5-19); BLOOD UREA NITROGEN 24 mg/dL (7-20); C-REACTIVE PROTEIN 72.4 mg/L (<10.0); CALCIUM 9.3 mg/dL (8.4-10.2); CARBON DIOXIDE 17 mmol/L (22-30); CHLORIDE 109 mmol/L (98-107); CREATINE KINASE 145 U/L (30-135); GLUCOSE 287 mg/dL (75-110); POTASSIUM 4.7 mmol/L (3.6-5.0)
[2020-07-25] MEDS: INSULIN LISPRO 100 UNIT/ML 3 ML VIAL SUBCUT SCH ×4 (07:49→22:01)
[2020-07-25] MEDS: ZINC SULFATE 220 MG CAPSULE PO SCH (09:16)
[2020-07-25] MEDS: GLIMEPIRIDE 4 MG TABLET PO SCH (09:16)
[2020-07-25] MEDS: LISINOPRIL 10 MG TABLET PO SCH (09:16)
[2020-07-25] MEDS: CHOLECALCIFEROL (D3) 1,000 UNIT (25 MCG) TABLET PO SCH (09:16)
[2020-07-25] MEDS: ASCORBIC ACID 500 MG TABLET PO SCH ×2 (09:16→17:02)
[2020-07-25] MEDS: FAMOTIDINE 20 MG TABLET PO SCH ×2 (09:17→22:01)
[2020-07-25] MEDS: DEXAMETHASONE SOD PHOSPHATE INJ 4 MG/1 ML VIAL IV SCH ×2 (09:17→22:02)
[2020-07-25] MEDS: ENOXAPARIN SODIUM INJ 60 MG/0.6 ML DISP.SYRIN SUBCUT SCH ×2 (09:17→22:01)
[2020-07-25 14:50] LABS: C DIFFICILE GDH NEGATIVE (NEGATIVE)
[2020-07-25 16:21] LABS: VENOUS BLOOD HCO3 21.3 mmol/L (20-32); VENOUS BLOOD PCO2 36.2 mmHg (35-63); VENOUS BLOOD PH 7.39 (7.30-7.42)
[2020-07-25] MEDS ORDERED: RINGERS SOLUTION,LACTATED 1,000 ML IV PRN (16:38)
[2020-07-25] MEDS: LORAZEPAM INJ 2 MG/1 ML VIAL IV PRN (16:59)
[2020-07-25] MEDS ORDERED: LOPERAMIDE HCL 2 MG CAPSULE PO ONE (17:00)
[2020-07-25] MEDS: AZITHROMYCIN 250 MG TABLET PO SCH (17:02)
[2020-07-25] MEDS: INSULIN GLARGINE,HUM.REC.ANLOG 1,000 UNIT/10 ML VIAL SUBCUT SCH (17:02)
[2020-07-25] MEDS: CEFTRIAXONE 2 GM/D5W RTU 2 GM/50 ML RTUPB IV SCH (17:03)
[2020-07-25] MEDS: PRAMIPEXOLE DI-HCL 0.5 MG TABLET PO SCH (17:04)
--- NOTE | 2020-07-25 17:31 | PDOC PROGRESS REPORT ---
Subjective Date:: 07/25/20 Subjective:: Very anxious and having several bouts of diarrhea. SOB persists. Reason For Visit: COVID PNA,HYPOXIA Physical Exam Vital Signs: Temp Pulse Resp BP Pulse Ox 98.2 F 102 H 42 H 109/57 L 94 07/25/20 07:38 07/25/20 14:00 07/25/20 16:39 07/25/20 07:23 07/25/20 16:39 Intake & Output 07/24/20 07/25/20 07/26/20 06:59 06:59 06:59 Intake Total 1550 1887 Output Total 400 2900 Balance 1150 -1013 Weight 148 kg 148 kg General appearance: PRESENT: cooperative, mild distress, morbidly obese Neck exam: ABSENT: JVD Respiratory exam: PRESENT: crackles, symmetrical, tachypnea. ABSENT: accessory muscle use, rhonchi, wheezes Cardiovascular exam: PRESENT: RRR, +S1, +S2. ABSENT: tachycardia GI/Abdominal exam: PRESENT: soft. ABSENT: rebound, rigid, tenderness Neurological exam: PRESENT: alert, awake, oriented to person, oriented to place, oriented to time Psychiatric exam: PRESENT: anxious Skin exam: PRESENT: other - flushed in the face Results Laboratory Results: 07/25/20 04:58 07/25/20 04:58 07/24/20 07/25/20 07/25/20 17:08 04:58 04:58 WBC 6.8 RBC 4.15 Hgb 11.8 L Hct 35.3 L MCV 85 MCH 28.5 MCHC 33.5 RDW 15.4 H Plt Count 220 Seg Neutrophils % 80.2 H VBG pH VBG pCO2 VBG HCO3 VBG Base Excess Sodium 139.2 Potassium 4.7 Chloride 109 H Carbon Dioxide 17 L Anion Gap 13 BUN 24 H Creatinine 0.57 Est GFR ( Amer) > 60 Glucose 287 H Lactic Acid 1.5 Calcium 9.3 Ferritin 730.00 H C-Reactive Protein 72.4 H 07/25/20 07/25/20 04:58 16:11 WBC RBC Hgb Hct MCV MCH MCHC RDW Plt Count Seg Neutrophils % VBG pH 7.36 7.39 VBG pCO2 35.2 36.2 VBG HCO3 19.4 L 21.3 VBG Base Excess -5.3 -3.0 Sodium Potassium Chloride Carbon Dioxide Anion Gap BUN Creatinine Est GFR ( Amer) Glucose Lactic Acid Calcium Ferritin C-Reactive Protein 07/23/20 07/24/20 07/25/20 14:34 05:12 04:58 Creatine Kinase 424 H 145 H Troponin I < 0.012 NT-Pro-B Natriuret Pep 56 Impressions: Chest X-Ray 07/23/20 14:11 IMPRESSION: Low inspiratory lung volumes and diffuse patchy bilateral parenchymal opacities. Differential considerations include a multifocal pneumonia (including COVID-19), ARDS and pulmonary edema. Chest/Abdomen CTA 07/23/20 15:00 IMPRESSION: Extensive parenchymal opacities throughout the lungs typical of covid 19. No pulmonary emboli. Questionable liver mass. Evaluate when patient is stable. Assessment and Plan - Diagnosis (1) Acute respiratory failure with hypoxia Is this a current diagnosis for this admission?: Yes Plan: Significantly hypoxic on presentation secondary to COVID-19 pneumonia. Patient was able to tolerate being on a high flow nasal cannula for most of the day around 65% FiO2. Her ABG showed PO2 in the 80s on 65%. She is however still quite tachypneic with mildly labored breathing. She may need to go back o n her CPAP depending on what she can tolerate. We will try another dose of Lasix. She remains critical. Discussed developments and plan with patient's mom. (2) Pneumonia due to COVID-19 virus Is this a current diagnosis for this admission?: Yes Plan: Since her symptoms started about 3 days prior to presentation. Tested positive outpatient at [facility]. We will obtain records. Dexamethasone IV multivitamin and zinc supplements. Remdesivir day 3 s/p 1 dose of Ivermectin and convalescent plasma. C/w empiric abx Antipyretics as needed for fever Every 12 hours Lovenox for high-dose prophylaxis (3) Tachypnea Is this a current diagnosis for this admission?: Yes Plan: ABG reveals metabolic acidosis and hyperventilation. Tachypnea is secondary to hypoxia and her COVID-19 pneumonia. However metabolic acidosis is also contributing to her hyperventilation. After correcting her metabolic Acidosis, if tachypnea is still severe, will try some small doses of morphine. (4) Metabolic acidosis Is this a current diagnosis for this admission?: Yes Plan: Secondary to diarrhea. Currently VBG shows resolution of this. We will continue to monitor bicarb level of metabolic panel. (5) Diarrhea Qualifiers: Diarrhea type: infectious Qualified Code(s): A09 - Infectious gastroenteritis and colitis, unspecified Is this a current diagnosis for this admission?: Yes Plan: Likely secondary to COVID-19. C. difficile test is negative. We will try Imodium. (6) Liver mass Is this a current diagnosis for this admission?: Yes Plan: Questionable liver mass was noted on CT of the chest. We will check CT abdomen to confirm. (7) Morbid obesity with BMI of 50.0-59.9, adult Is this a current diagnosis for this admission?: Yes Plan: BMI of 54.5. This puts her at significantly increased risk of a complicated COVID-19 course of infection. (8) Diabetes mellitus type 2 in obese Is this a current diagnosis for this admission?: Yes Plan: Sliding scale insulin, Accu-Cheks. ADA diet. Continue glimepiride. Lantus. - Time Time Spent with patient: 15-24 minutes Anticipated Discharge Disposition: Home, Self Care Anticipated Discharge Timeframe: unknown
[2020-07-25] MEDS: MORPHINE SULFATE 10 MG/ML INJ IV PRN (18:10)
[2020-07-25] MEDS ORDERED: FUROSEMIDE INJ/PF 20 MG/2 ML SDV IV ONE (18:30)
[2020-07-25] MEDS ORDERED: INSULIN GLARGINE,HUM.REC.ANLOG 1,000 UNIT/10 ML VIAL SUBCUT SCH (19:00)
[2020-07-25] MEDS: REMDESIVIR 100 MG in NORMAL SALINE 250 ML IV SCH (22:01)
[2020-07-26] MEDS: ALBUTEROL SULFATE HFA (90 MCG/PUFF) 8 GM MDI IH SCH ×4 (00:23→17:06)
[2020-07-26 05:16] LABS: ABSOLUTE LYMPHOCYTES (AUTO) 0.8 10^3/uL (0.5-4.7); ABSOLUTE MONOCYTES (AUTO) 0.7 10^3/uL (0.1-1.4); ABSOLUTE NEUT (AUTO) 5.9 10^3/uL (1.7-8.2); BASOPHILS % (AUTO) 0.1 % (0-2); HEMATOCRIT 35.1 % (36.0-47.0); LYMPHOCYTES % (AUTO) 10.3 % (13-45); MEAN CORPUSCULAR HEMOGLOBIN 28.9 pg (27.0-33.4); MEAN CORPUSCULAR HGB CONC 34.1 g/dL (32.0-36.0); MEAN CORPUSCULAR VOLUME 85 fl (80-97); PLATELET COUNT 230 10^3/uL (150-450); RED BLOOD COUNT 4.15 10^6/uL (3.72-5.28); RED CELL DISTRIBUTION WIDTH 15.3 % (11.5-14.0); SEGMENTED NEUTROPHILS % (AUTO) 80.6 % (42-78); TOTAL CELLS COUNTED % (AUTO) 100 %; WHITE BLOOD COUNT 7.3 10^3/uL (4.0-10.5)
[2020-07-26 05:40] LABS: ALBUMIN 3.1 g/dL (3.5-5.0); ALKALINE PHOSPHATASE 237 U/L (38-126); ANION GAP 10 (5-19); ASPARTATE AMINO TRANSFERASE 35 U/L (14-36); BILIRUBIN,DIRECT 0.3 mg/dL (0.0-0.4); BILIRUBIN,TOTAL 0.5 mg/dL (0.2-1.3); BLOOD UREA NITROGEN 24 mg/dL (7-20); C-REACTIVE PROTEIN 53.3 mg/L (<10.0); CARBON DIOXIDE 21 mmol/L (22-30); CHLORIDE 106 mmol/L (98-107); CREATINE KINASE 41 U/L (30-135); GLUCOSE 316 mg/dL (75-110); POTASSIUM 4.6 mmol/L (3.6-5.0); TOTAL PROTEIN 5.7 g/dL (6.3-8.2)
[2020-07-26] MEDS: ZINC SULFATE 220 MG CAPSULE PO SCH (09:54)
[2020-07-26] MEDS: ASCORBIC ACID 500 MG TABLET PO SCH ×2 (09:54→17:05)
[2020-07-26] MEDS: FAMOTIDINE 20 MG TABLET PO SCH ×2 (09:54→21:35)
[2020-07-26] MEDS: CHOLECALCIFEROL (D3) 1,000 UNIT (25 MCG) TABLET PO SCH (09:54)
[2020-07-26] MEDS: GLIMEPIRIDE 4 MG TABLET PO SCH (09:54)
[2020-07-26] MEDS: LISINOPRIL 10 MG TABLET PO SCH (09:54)
[2020-07-26] MEDS: DEXAMETHASONE SOD PHOSPHATE INJ 4 MG/1 ML VIAL IV SCH ×2 (09:54→21:36)
[2020-07-26] MEDS: LOPERAMIDE HCL 2 MG CAPSULE PO PRN ×2 (09:54→21:35)
[2020-07-26] MEDS: LORAZEPAM INJ 2 MG/1 ML VIAL IV PRN ×3 (09:54→21:17)
[2020-07-26] MEDS: ENOXAPARIN SODIUM INJ 120 MG/0.8 ML DISP.SYRIN SUBCUT SCH ×2 (09:54→21:36)
[2020-07-26] MEDS: INSULIN LISPRO 100 UNIT/ML 3 ML VIAL SUBCUT SCH ×4 (09:55→21:35)
[2020-07-26] MEDS ORDERED: INSULIN GLARGINE,HUM.REC.ANLOG 1,000 UNIT/10 ML VIAL SUBCUT SCH (10:00)
[2020-07-26] MEDS: MORPHINE SULFATE 10 MG/ML INJ IV PRN (16:20)
[2020-07-26] MEDS ORDERED: METHYLPREDNISOLONE INJ 40 MG/1 ML SDV IV ONE (16:37)
--- NOTE | 2020-07-26 16:44 | PDOC PROGRESS REPORT ---
Subjective Date:: 07/26/20 Subjective:: Patient continues to feel quite short of breath. She remains tachypneic this mo rning. Her diarrhea has slowed down after Imodium. She was drowsy this morning but had just received some morphine to help with her work of breathing. She also gets very anxious and has required some doses of Ativan. Reason For Visit: COVID PNA,HYPOXIA Physical Exam Vital Signs: Temp Pulse Resp BP Pulse Ox 97.3 F 75 40 H 146/81 H 90 L 07/26/20 11:22 07/26/20 14:00 07/26/20 16:09 07/26/20 11:22 07/26/20 16:09 Intake & Output 07/25/20 07/26/20 07/27/20 06:59 06:59 06:59 Intake Total 1887 1080 Output Total 2900 2200 Balance -1013 -1120 Weight 148 kg 148.2 kg General appearance: PRESENT: cooperative, mild distress Head exam: PRESENT: normocephalic Eye exam: PRESENT: EOMI Respiratory exam: PRESENT: crackles - Diffuse bilateral though seems improved from yesterday, symmetrical, tachypnea. ABSENT: accessory muscle use, retraction, rhonchi, stridor, unlabored - Mildly labored, wheezes Cardiovascular exam: PRESENT: RRR, +S1, +S2. ABSENT: tachycardia GI/Abdominal exam: PRESENT: soft. ABSENT: firm, guarding, hernia, mass, rebound, rigid, tenderness Neurological exam: PRESENT: awake - Drowsy but awakens easily and able to have a full conversation, oriented to person, oriented to place, oriented to time, oriented to situation Psychiatric exam: PRESENT: anxious. ABSENT: agitated Results Laboratory Results: 07/26/20 04:08 07/26/20 04:08 07/26/20 07/26/20 04:08 04:08 WBC 7.3 RBC 4.15 Hgb 12.0 Hct 35.1 L MCV 85 MCH 28.9 MCHC 34.1 RDW 15.3 H Plt Count 230 Seg Neutrophils % 80.6 H Sodium 136.9 L Potassium 4.6 Chloride 106 Carbon Dioxide 21 L Anion Gap 10 BUN 24 H Creatinine 0.54 Est GFR ( Amer) > 60 Glucose 316 H Calcium 9.0 Magnesium 2.0 Ferritin 532.00 H Total Bilirubin 0.5 AST 35 Alkaline Phosphatase 237 H C-Reactive Protein 53.3 H Total Protein 5.7 L Albumin 3.1 L 07/23/20 07/24/20 07/25/20 14:34 05:12 04:58 Creatine Kinase 424 H 145 H Troponin I < 0.012 NT-Pro-B Natriuret Pep 56 07/26/20 04:08 Creatine Kinase 41 Troponin I NT-Pro-B Natriuret Pep Impressions: Chest X-Ray 07/23/20 14:11 IMPRESSION: Low inspiratory lung volumes and diffuse patchy bilateral parenchymal opacities. Differential considerations include a multifocal pneumonia (including COVID-19), ARDS and pulmonary edema. Chest/Abdomen CTA 07/23/20 15:00 IMPRESSION: Extensive parenchymal opacities throughout the lungs typical of covid 19. No pulmonary emboli. Questionable liver mass. Evaluate when patient is stable. Assessment and Plan - Diagnosis (1) Acute respiratory failure with hypoxia Is this a current diagnosis for this admission?: Yes Plan: Remains quite hypoxic. Requiring CPAP 90%/14. Was initially on nasal cannula this morning but later in the day started desaturating and taking shallow breaths so was placed back on CPAP. She remains critical. Discussed developments and plan with patient's mom. (2) Pneumonia due to COVID-19 virus Is this a current diagnosis for this admission?: Yes Plan: Since her symptoms started about 3 days prior to presentation. Tested positive outpatient at [facility]. We will obtain records. Dexamethasone IV. We will try a dose of Solu-Medrol multivitamin and zinc supplements. Remdesivir day 4 s/p 1 dose of Ivermectin and convalescent plasma. C/w empiric abx Has not been febrile since admission. Increase Lovenox to therapeutic dose as D-dimer is rising (3) Tachypnea Is this a current diagnosis for this admission?: Yes Plan: Metabolic acidosis has resolved. Still tachypneic due to hypoxia from pneumonia. Also gets very anxious. Try small doses of Ativan and morphine. We will have to be careful given her respiratory issues. So far she has shown no evidence of CO2 retention and actually is hyperventilating. (4) Metabolic acidosis Is this a current diagnosis for this admission?: Yes Plan: Secondary to diarrhea. Improved pretty much resolving (5) Diarrhea Qualifiers: Diarrhea type: infectious Qualified Code(s): A09 - Infectious gastroenteritis and colitis, unspecified Is this a current diagnosis for this admission?: Yes Plan: Likely secondary to COVID-19. C. difficile test is negative. Continue Imodium. Improved significantly. (6) Liver mass Is this a current diagnosis for this admission?: Yes Plan: Questionable liver mass was noted on CT of the chest. We will check CT abdomen to confirm. (7) Morbid obesity with BMI of 50.0-59.9, adult Is this a current diagnosis for this admission?: Yes (8) Diabetes mellitus type 2 in obese Is this a current diagnosis for this admission?: Yes Plan: Sliding scale insulin, Accu-Cheks. ADA diet. Continue glimepiride. Steroids is worsening her hyperglycemia. Increase Lantus - Time Time Spent with patient: 15-24 minutes Anticipated Discharge Disposition: Home, Self Care Anticipated Discharge Timeframe: unknown
[2020-07-26] MEDS ORDERED: DEXTROSE 5%-LACTATED RINGERS 1,000 ML IV PRN (16:46)
--- NOTE | 2020-07-26 17:03 | RADIOLOGY REPORT (SQ) ---
EXAM DESCRIPTION: CT ABD/PELVIS WITH IV ORAL IMAGES COMPLETED DATE/TIME: 07/26/2020 2:26 pm REASON FOR STUDY: ?liver mass. Profuse diarrhea COMPARISON: CTA chest dated 07/23/2020. TECHNIQUE: CT scan of the abdomen and pelvis performed using helical scanning technique with dynamic intravenous contrast injection and with oral contrast. Images reviewed with lung, soft tissue, and b one windows. Reconstructed coronal and sagittal MPR images reviewed. Delayed images for evaluation of the urinary system also acquired. All images stored on PACS. All CT scanners at this facility use dose modulation, iterative reconstruction, and/or weight based d osing when appropriate to reduce radiation dose to as low as reasonably achievable (ALARA). [facility]: Dose Right [facility]: CareDose [facility]: Dose Right [facility]: Teradose 4D [facility]: Open Dada Solution Lab CONTRAST TYPE AND DOSE: 100 mL Omnipaque 350- low osmolar. RENAL FUNCTION: BUN 24 creatinine 0.54. RADIATION DOSE: . LIMITATIONS: Motion artifact. FINDINGS: LOWER CHEST: Extensive ground-glass infiltrates in the lower lobes. LIVER: Normal size. No masses. No dilated ducts. SPLEEN: Normal size. No focal lesions. PANCREAS: No masses. No significant calcifications. No adjacent inflammation or peripancreatic fluid collections. Pancreatic duct not dilated. GALLBLADDER: No identified stones by CT criteria. No inflammatory changes to suggest cholecystitis. ADRENAL GLANDS: No significant masses or asymmetry. RIGHT KIDNEY AND URETER: Cortical cyst. No solid masses. No significant calcifications. No hydro nephrosis or hydroureter. LEFT KIDNEY AND URETER: No solid masses. No significant calcifications. No hydronephrosis or hydr oureter. AORTA AND VESSELS: No aneurysm. No dissection. Renal arteries, SMA, celiac without stenosis. RETROPERITONEUM: No retroperitoneal adenopathy, hemorrhage or masses. BOWEL AND PERITONEAL CAVITY: No masses or inflammatory changes. No free fluid or peritoneal masses. APPENDIX: Not visualized. PELVIS: Bilateral adnexal cysts, on the right measuring 4.5 cm and on the left measuring [address] in the bladder. ABDOMINAL WALL: No masses. No hernias. BONES: No significant or acute findings. OTHER: No other significant finding. IMPRESSION: 1. BILATERAL PELVIC ADNEXAL CYSTS, MEASURING 4.5 CM AND 8 CM. PRESUMABLY OVARIAN. WOULD CONSIDER FO LLOW-UP PELVIC ULTRASOUND WHEN ABLE. 2. SMALL CORTICAL CYST IN THE RIGHT KIDNEY. 3. NO LIVER MASS. 4. EXTENSIVE GROUND-GLASS INFILTRATES IN THE LOWER LOBES CONSISTENT WITH COVID- 19. 5. NO OTHER SIGNIFICANT OR ACUTE FINDING IN THE ABDOMEN OR PELVIS ON CT SCAN WITH IV CONTRAST. TECHNICAL DOCUMENTATION: JOB ID: [id number] Quality ID # [id number]: Final reports with documentation of one or more dose reduction techniques (e.g., Au tomated exposure control, adjustment of the mA and/or kV according to patient size, use of iterative reconstruction technique) 2010 [employer]- All Rights Reserved Reading location - IP/workstation name: [email or web address]
[2020-07-26] MEDS: CEFTRIAXONE 2 GM/D5W RTU 2 GM/50 ML RTUPB IV SCH (17:05)
[2020-07-26] MEDS: AZITHROMYCIN 250 MG TABLET PO SCH (17:05)
[2020-07-26] MEDS: PRAMIPEXOLE DI-HCL 0.5 MG TABLET PO SCH (17:06)
[2020-07-26] MEDS: RINGERS SOLUTION,LACTATED 1,000 ML IV PRN (20:06)
[2020-07-26] MEDS: REMDESIVIR 100 MG in NORMAL SALINE 250 ML IV SCH (21:34)
[2020-07-27] MEDS: ALBUTEROL SULFATE HFA (90 MCG/PUFF) 8 GM MDI IH SCH ×4 (00:28→17:48)
[2020-07-27 06:17] LABS: HEMATOCRIT 36.1 % (36.0-47.0); HEMOGLOBIN 12.3 g/dL (12.0-15.5); MEAN CORPUSCULAR HEMOGLOBIN 28.5 pg (27.0-33.4); MEAN CORPUSCULAR HGB CONC 34.1 g/dL (32.0-36.0); MEAN CORPUSCULAR VOLUME 84 fl (80-97); PLATELET COUNT 242 10^3/uL (150-450); RED BLOOD COUNT 4.32 10^6/uL (3.72-5.28); RED CELL DISTRIBUTION WIDTH 14.9 % (11.5-14.0); WHITE BLOOD COUNT 7.1 10^3/uL (4.0-10.5)
[2020-07-27 06:36] LABS: ALKALINE PHOSPHATASE 268 U/L (38-126); ANION GAP 10 (5-19); ASPARTATE AMINO TRANSFERASE 27 U/L (14-36); BILIRUBIN,DIRECT 0.2 mg/dL (0.0-0.4); BILIRUBIN,TOTAL 0.4 mg/dL (0.2-1.3); BLOOD UREA NITROGEN 24 mg/dL (7-20); C-REACTIVE PROTEIN 48.7 mg/L (<10.0); CALCIUM 8.9 mg/dL (8.4-10.2); CARBON DIOXIDE 21 mmol/L (22-30); CHLORIDE 104 mmol/L (98-107); CREATINE KINASE 22 U/L (30-135); GLUCOSE 339 mg/dL (75-110); POTASSIUM 4.6 mmol/L (3.6-5.0); TOTAL PROTEIN 5.7 g/dL (6.3-8.2)
[2020-07-27 07:34] LABS: ABSOLUTE LYMPHOCYTES# (MANUAL) 0.9 10^3/uL (0.5-4.7); ABSOLUTE MONOCYTES # (MANUAL) 0.6 10^3/uL (0.1-1.4); ANISOCYTOSIS SLIGHT; BASOPHILS % (MANUAL) 0 % (0-2); EOSINOPHILS % (MANUAL) 0 % (0-6); LYMPHOCYTES % (MANUAL) 13 % (13-45); MONOCYTES % (MANUAL) 9 % (3-13); PLATELET COMMENT ADEQUATE; SEGMENTED NEUTROPHILS % (MAN) 78 % (42-78); TOTAL CELLS COUNTED 100
[2020-07-27 07:36] LABS: POLYCHROMASIA SLIGHT
[2020-07-27] MEDS: CHOLECALCIFEROL (D3) 1,000 UNIT (25 MCG) TABLET PO SCH (09:28)
[2020-07-27] MEDS: GLIMEPIRIDE 4 MG TABLET PO SCH (09:28)
[2020-07-27] MEDS: ZINC SULFATE 220 MG CAPSULE PO SCH (09:28)
[2020-07-27] MEDS: FAMOTIDINE 20 MG TABLET PO SCH ×2 (09:29→21:33)
[2020-07-27] MEDS: ENOXAPARIN SODIUM INJ 120 MG/0.8 ML DISP.SYRIN SUBCUT SCH ×2 (09:29→21:34)
[2020-07-27] MEDS: DEXAMETHASONE SOD PHOSPHATE INJ 4 MG/1 ML VIAL IV SCH (09:29)
[2020-07-27] MEDS: LISINOPRIL 10 MG TABLET PO SCH (09:29)
[2020-07-27] MEDS: ASCORBIC ACID 500 MG TABLET PO SCH ×2 (09:29→17:48)
[2020-07-27] MEDS: INSULIN LISPRO 100 UNIT/ML 3 ML VIAL SUBCUT SCH ×4 (09:29→21:35)
[2020-07-27] MEDS ORDERED: INSULIN GLARGINE,HUM.REC.ANLOG 1,000 UNIT/10 ML VIAL SUBCUT SCH (10:00)
[2020-07-27] MEDS ORDERED: CEFEPIME 2 GM/D5W RTU 2 GM/50 ML RTUPB IV SCH (12:00)
[2020-07-27] MEDS ORDERED: VANCOMYCIN HCL INJ 1000 MG VIAL IV SCH (12:00)
--- NOTE | 2020-07-27 12:22 | PDOC PROGRESS REPORT ---
Subjective Date:: 07/27/20 Subjective:: She still feels very short of breath. She does not like using the CPAP but now is request to be placed back on the high flow nasal cannula. Seen her this morning with high flow nasal cannula satting in the mid 90s. She continues to lay in bed and I have discussed with her about getting out of bed today into a chair. Reason For Visit: COVID PNA,HYPOXIA Physical Exam Vital Signs: Temp Pulse Resp BP Pulse Ox 97.6 F 83 36 H 143/72 H 87 L 07/27/20 07:48 07/27/20 07:40 07/27/20 08:55 07/27/20 07:40 07/27/20 08:55 Intake & Output 07/26/20 07/27/20 07/28/20 06:59 06:59 06:59 Intake Total 1080 569 Output Total 2200 1515 Balance -1120 -946 Weight 148.2 kg 145.7 kg General appearance: PRESENT: no acute distress, cooperative, other - fatigued Neck exam: ABSENT: JVD Respiratory exam: PRESENT: crackles, symmetrical, tachypnea. ABSENT: accessory muscle use, unlabored - Mildly labored, wheezes Cardiovascular exam: PRESENT: RRR, +S1, +S2. ABSENT: tachycardia GI/Abdominal exam: PRESENT: soft. ABSENT: rebound, rigid, tenderness Neurological exam: PRESENT: alert, awake, oriented to person, oriented to place, oriented to time Psychiatric exam: PRESENT: anxious Skin exam: PRESENT: other - flushed Results Laboratory Results: 07/27/20 05:23 07/27/20 05:23 07/27/20 07/27/20 05:23 05:23 WBC 7.1 RBC 4.32 Hgb 12.3 Hct 36.1 MCV 84 MCH 28.5 MCHC 34.1 RDW 14.9 H Plt Count 242 Seg Neutrophils % Not Reportable Sodium 135.1 L Potassium 4.6 Chloride 104 Carbon Dioxide 21 L Anion Gap 10 BUN 24 H Creatinine 0.55 Est GFR ( Amer) > 60 Glucose 339 H Calcium 8.9 Ferritin 533.00 H Total Bilirubin 0.4 AST 27 Alkaline Phosphatase 268 H C-Reactive Protein 48.7 H Total Protein 5.7 L Albumin 3.0 L 12/16/20 12/17/20 12/18/20 14:34 05:12 04:58 Creatine Kinase 424 H 145 H Troponin I < 0.012 NT-Pro-B Natriuret Pep 56 07/26/20 07/27/20 04:08 05:23 Creatine Kinase 41 22 L Troponin I NT-Pro-B Natriuret Pep Impressions: Chest X-Ray 07/23/20 14:11 IMPRESSION: Low inspiratory lung volumes and diffuse patchy bilateral parenchymal opacities. Differential considerations include a multifocal pneu monia (including COVID-19), ARDS and pulmonary edema. Chest/Abdomen CTA 07/23/20 15:00 IMPRESSION: Extensive parenchymal opacities throughout the lungs typical of covid 19. No pulmonary emboli. Questionable liver mass. Evaluate when patient is stable. Abdomen/Pelvis CT 07/25/20 13:45 IMPRESSION: 1. BILATERAL PELVIC ADNEXAL CYSTS, MEASURING 4.5 CM AND 8 CM. PRESUMABLY OVARIAN. WOULD CONSIDER FOLLOW-UP PELVIC ULTRASOUND WHEN ABLE. 2. SMALL CORTICAL CYST IN THE RIGHT KIDNEY. 3. NO LIVER MASS. 4. EXTENSIVE GROUND-GLASS INFILTRATES IN THE LOWER LOBES CONSISTENT WITH COVID- 19. 5. NO OTHER SIGNIFICANT OR ACUTE FINDING IN THE ABDOMEN OR PELVIS ON CT SCAN WITH IV CONTRAST. Assessment and Plan - Diagnosis (1) Acute respiratory failure with hypoxia Is this a current diagnosis for this admission?: Yes Plan: Remains quite hypoxic. On HFNC 90%/60L. SpO2 on mid 90s on my encounter. No improvement with diuresis so it was discontinued. (2) Pneumonia due to COVID-19 virus Is this a current diagnosis for this admission?: Yes Plan: She has quite severe disease with pneumonia involving most of lung parenchyma Tested positive outpatient at [facility]. Will switch decadron to Solumedrol multivitamin and zinc supplements. Remdesivir day 5 s/p 1 dose of Ivermectin and convalescent plasma. s/p 4 doses of Ceftriaxone - dc/d Azithromycin day 5 Seems to have worsening consolidation in the lower lobes in addition to groundglass so I will place on broad antibiotic Vancomycin and cefepime and get sputum cultures. Continue Lovenox (3) Tachypnea Is this a current diagnosis for this admission?: Yes (4) Metabolic acidosis Is this a current diagnosis for this admission?: Yes (5) Diarrhea Qualifiers: Diarrhea type: infectious Qualified Code(s): A09 - Infectious gastroenteritis and colitis, unspecified Is this a current diagnosis for this admission?: Yes (6) Liver mass Is this a current diagnosis for this admission?: Yes Plan: Abdominal CT shows no evidence of the liver mass noted on chest CTA. (7) Morbid obesity with BMI of 50.0-59.9, adult Is this a current diagnosis for this admission?: Yes (8) Diabetes mellitus type 2 in obese Is this a current diagnosis for this admission?: Yes Plan: Hyperglycemia remains uncontrolled given steroids. Increase Lantus dose. Continue glimepiride. - Time Time Spent with patient: 15-24 minutes Anticipated Discharge Disposition: Home, Self Care Anticipated Discharge Timeframe: Unknown
[2020-07-27] MEDS ORDERED: ACETYLCYSTEINE 20% SOLN 800 MG/4 ML VIAL.NEB ONE (12:29)
[2020-07-27] MEDS: ALBUTEROL SULFATE 0.083% NEB 2.5 MG/3 ML AMPUL NEB PRN (12:36)
[2020-07-27] MEDS: ACETYLCYSTEINE 10% NEB 400 MG/4 ML VIAL NEB SCH ×2 (12:52→21:11)
[2020-07-27] MEDS: CEFEPIME HCL 2 GM in DEXTROSE 5%-WATER 50 ML IV SCH ×2 (13:23→21:33)
[2020-07-27] MEDS: METHYLPREDNISOLONE INJ 40 MG/1 ML SDV IV SCH ×2 (13:25→21:33)
[2020-07-27] MEDS: VANCOMYCIN HCL 1,500 MG in DEXTROSE 5%-WATER 250 ML IV SCH ×2 (14:49→21:33)
[2020-07-27] MEDS ORDERED: INSULIN LISPRO 100 UNIT/ML 3 ML VIAL SUBCUT ONE ×2 (17:35)
[2020-07-27] MEDS: AZITHROMYCIN 250 MG TABLET PO SCH (17:48)
[2020-07-27] MEDS: PRAMIPEXOLE DI-HCL 0.5 MG TABLET PO SCH (17:48)
[2020-07-27] MEDS: REMDESIVIR 100 MG in NORMAL SALINE 250 ML IV SCH (21:33)
[2020-07-27] MEDS: INSULIN GLARGINE,HUM.REC.ANLOG 1,000 UNIT/10 ML VIAL SUBCUT SCH (21:35)
[2020-07-28] MEDS: ALBUTEROL SULFATE HFA (90 MCG/PUFF) 8 GM MDI IH SCH ×4 (03:39→17:04)
[2020-07-28 05:36] LABS: HEMATOCRIT 36.6 % (36.0-47.0); HEMOGLOBIN 12.5 g/dL (12.0-15.5); MEAN CORPUSCULAR HEMOGLOBIN 28.5 pg (27.0-33.4); MEAN CORPUSCULAR VOLUME 84 fl (80-97); PLATELET COUNT 252 10^3/uL (150-450); RED BLOOD COUNT 4.37 10^6/uL (3.72-5.28); RED CELL DISTRIBUTION WIDTH 14.9 % (11.5-14.0); WHITE BLOOD COUNT 8.1 10^3/uL (4.0-10.5)
[2020-07-28 05:57] LABS: C-REACTIVE PROTEIN 40.7 mg/L (<10.0)
[2020-07-28] MEDS: VANCOMYCIN HCL 1,500 MG in DEXTROSE 5%-WATER 250 ML IV SCH ×3 (05:58→22:55)
[2020-07-28] MEDS: METHYLPREDNISOLONE INJ 40 MG/1 ML SDV IV SCH ×2 (05:59→22:59)
[2020-07-28] MEDS: RINGERS SOLUTION,LACTATED 1,000 ML IV PRN (06:05)
[2020-07-28 07:07] LABS: BASOPHILS % (MANUAL) 0 % (0-2); EOSINOPHILS % (MANUAL) 0 % (0-6); LYMPHOCYTES % (MANUAL) 12 % (13-45); MONOCYTES % (MANUAL) 12 % (3-13); SEGMENTED NEUTROPHILS % (MAN) 76 % (42-78); TOTAL CELLS COUNTED 100
[2020-07-28 07:08] LABS: ANISOCYTOSIS SLIGHT; PLATELET COMMENT ADEQUATE; TOXIC GRANULATION SLIGHT
[2020-07-28] MEDS ORDERED: INSULIN LISPRO 100 UNIT/ML 3 ML VIAL SUBCUT SCH (08:00)
[2020-07-28] MEDS: INSULIN LISPRO 100 UNIT/ML 3 ML VIAL SUBCUT SCH ×7 (08:05→22:54)
[2020-07-28] MEDS: ALBUTEROL SULFATE 0.083% NEB 2.5 MG/3 ML AMPUL NEB PRN ×2 (08:50→20:53)
[2020-07-28] MEDS: ACETYLCYSTEINE 10% NEB 400 MG/4 ML VIAL NEB SCH ×2 (08:50→20:53)
[2020-07-28] MEDS: GLIMEPIRIDE 4 MG TABLET PO SCH (10:50)
[2020-07-28] MEDS: CHOLECALCIFEROL (D3) 1,000 UNIT (25 MCG) TABLET PO SCH (10:50)
[2020-07-28] MEDS: ZINC SULFATE 220 MG CAPSULE PO SCH (10:50)
[2020-07-28] MEDS: CEFEPIME HCL 2 GM in DEXTROSE 5%-WATER 50 ML IV SCH ×2 (10:50→22:57)
[2020-07-28] MEDS: FAMOTIDINE 20 MG TABLET PO SCH ×2 (10:51→22:58)
[2020-07-28] MEDS: LISINOPRIL 10 MG TABLET PO SCH (10:51)
[2020-07-28] MEDS: ASCORBIC ACID 500 MG TABLET PO SCH ×2 (10:51→17:01)
[2020-07-28] MEDS: ENOXAPARIN SODIUM INJ 120 MG/0.8 ML DISP.SYRIN SUBCUT SCH ×2 (10:51→22:58)
[2020-07-28] MEDS: INSULIN GLARGINE,HUM.REC.ANLOG 1,000 UNIT/10 ML VIAL SUBCUT SCH (10:51)
[2020-07-28] MEDS ORDERED: INSULIN LISPRO 100 UNIT/ML 3 ML VIAL IV ONE (13:00)
[2020-07-28] MEDS ORDERED: NORMAL SALINE 1000 ML 700 ML IV ONE (13:04)
--- NOTE | 2020-07-28 13:05 | PDOC PROGRESS REPORT ---
Subjective Date:: 07/28/20 Subjective:: Patient is feeling better today. She is no longer breathing heavy and actually appears the best I've seen her so far. However, her oxygenation still has not improved but she is very comfortable on the high flow nasal cannula. She had a little bit of diarrhea last night but otherwise no longer having any significant problems with this. Denies chest pain or abd pain. Reason For Visit: COVID PNA,HYPOXIA Physical Exam Vital Signs: Temp Pulse Resp BP Pulse Ox 97.5 F 82 19 148/76 H 92 07/28/20 11:06 07/28/20 11:06 07/28/20 11:06 07/28/20 11:06 07/28/20 11:06 Intake & Output 07/27/20 07/28/20 07/29/20 06:59 06:59 06:59 Intake Total 569 1467 500 Output Total 1515 1900 Balance -946 -433 500 Weight 145.7 kg 145.7 kg General appearance: PRESENT: no acute distress, cooperative Neck exam: ABSENT: JVD Respiratory exam: PRESENT: clear to auscultation tayla, symmetrical, unlabored. ABSENT: accessory muscle use, retraction, tachypnea, wheezes Cardiovascular exam: PRESENT: RRR, +S1, +S2. ABSENT: tachycardia GI/Abdominal exam: PRESENT: soft. ABSENT: rebound, rigid, tenderness Neurological exam: PRESENT: alert, awake, oriented to person, oriented to place, oriented to time, oriented to situation Psychiatric exam: ABSENT: agitated, anxious Focused psych exam: ABSENT: pressured speech Results Laboratory Results: 07/28/20 04:49 07/27/20 05:23 07/28/20 07/28/20 04:49 04:49 WBC 8.1 RBC 4.37 Hgb 12.5 Hct 36.6 MCV 84 MCH 28.5 MCHC 34.0 RDW 14.9 H Plt Count 252 Seg Neutrophils % Not Reportable Ferritin 519.00 H C-Reactive Protein 40.7 H 07/27/20 13:00 Sputum Gram Stain - Final 07/27/20 13:00 Sputum Sputum Culture - Final 07/23/20 07/24/20 07/25/20 14:34 05:12 04:58 Creatine Kinase 424 H 145 H Troponin I < 0.012 NT-Pro-B Natriuret Pep 56 07/26/20 07/27/20 07/28/20 04:08 05:23 04:49 Creatine Kinase 41 22 L 38 Troponin I NT-Pro-B Natriuret Pep Impressions: Chest X-Ray 07/23/20 14:11 IMPRESSION: Low inspiratory lung volumes and diffuse patchy bilateral parenchymal opacities. Differential considerations include a multifocal pneumonia (including COVID-19), ARDS and pulmonary edema. Chest/Abdomen CTA 07/23/20 15:00 IMPRESSION: Extensive parenchymal opacities throughout the lungs typical of c ovid 19. No pulmonary emboli. Questionable liver mass. Evaluate when patient is stable. Abdomen/Pelvis CT 07/25/20 13:45 IMPRESSION: 1. BILATERAL PELVIC ADNEXAL CYSTS, MEASURING 4.5 CM AND 8 CM. PRESUMABLY OVARIAN. WOULD CONSIDER FOLLOW-UP PELVIC ULTRASOUND WHEN ABLE. 2. SMALL CORTICAL CYST IN THE RIGHT KIDNEY. 3. NO LIVER MASS. 4. EXTENSIVE GROUND-GLASS INFILTRATES IN THE LOWER LOBES CONSISTENT WITH COVID- 19. 5. NO OTHER SIGNIFICANT OR ACUTE FINDING IN THE ABDOMEN OR PELVIS ON CT SCAN WITH IV CONTRAST. Assessment and Plan - Diagnosis (1) Acute respiratory failure with hypoxia Is this a current diagnosis for this admission?: Yes Plan: Remains quite hypoxic. On HFNC 90%/60L. SpO2 on mid 90s on my encounter. No improvement with diuresis so it was discontinued. 07/28 Patient actually physically appears the best I've seen her so far as she is no longer tachypneic and her breathing is no longer labored. Her hypoxia however has not shown improvement as she was on HFNC 95%/60L with spo2 at 85% though she appeared very comfortable. She had to be placed back on cpap. (2) Pneumonia due to COVID-19 virus Is this a current diagnosis for this admission?: Yes Plan: She has quite severe disease with pneumonia involving most of lung parenchyma Tested positive outpatient at [facility]. Will switch decadron to Solumedrol multivitamin and zinc supplements. Remdesivir day 5 s/p 1 dose of Ivermectin and convalescent plasma. s/p 4 doses of Ceftriaxone - dc/d Azithromycin day 5 Seems to have worsening consolidation in the lower lobes in addition to groundglass so I will place on broad antibiotic Vancomycin and cefepime and get sputum cultures. Continue Lovenox 07/28/2020 I will continue her on Solu-Medrol and will continue Vanco/cefepime. Continue Lovenox. Sputum cultures seem to have yielded inadequate sampling. (3) Diabetes mellitus type 2 in obese Is this a current diagnosis for this admission?: Yes Plan: Her hyperglycemia has been really hard to control since initiating steroids. Continue home dose of glimepiride. She does not use insulin at home and her A1c is 7.9 so hyperglycemia is mostly from steroids. I put her on Lantus and I have had to increase the dose every day. I have started premeal lispro today. I will change her Solu-Medrol from every 8 hours to every 12 hours but I will still like her to remain on steroids as she would likely benefit from this highly. (4) Tachypnea Is this a current diagnosis for this admission?: Yes Plan: Metabolic acidosis has resolved. Still tachypneic due to hypoxia from pneumonia. Also gets very anxious. Try small doses of Ativan and morphine. We will have to be careful given her respiratory issues. So far she has shown no evidence of CO2 retention and actually is hyperventilating. 07/28/2020 Seems to be resolved today. Will monitor. (5) Metabolic acidosis Is this a current diagnosis for this admission?: Yes Plan: Secondary to diarrhea. Improved pretty much resolving (6) Diarrhea Qualifiers: Diarrhea type: infectious Qualified Code(s): A09 - Infectious gastroenteritis and colitis, unspecified Is this a current diagnosis for this admission?: Yes Plan: Likely secondary to COVID-19. C. difficile test is negative. Continue Imodium prn. Improved remarkably. Discontinue LR fluids. (7) Liver mass Is this a current diagnosis for this admission?: Yes Plan: Abdominal CT shows no evidence of the liver mass noted on chest CTA. (8) Morbid obesity with BMI of 50.0-59.9, adult Is this a current diagnosis for this admission?: Yes Plan: BMI of 54.5. This puts her at significantly increased risk of a complicated COVID-19 course of infection. - Time Time Spent with patient: 15-24 minutes Anticipated Discharge Disposition: Home, Self Care Anticipated Discharge Timeframe: unknown
[2020-07-28] MEDS ORDERED: INSULIN NPH (ISOPHANE), HUMAN 100 UNIT/ML 3 ML SUBCUT ONE ×2 (14:00→15:00)
[2020-07-28] MEDS: [UNRECOGNIZED DRUG - OTHER] SUBCUT SCH (17:00)
[2020-07-28] MEDS: DULAGLUTIDE SUBCUT SCH (17:00)
[2020-07-28] MEDS: PRAMIPEXOLE DI-HCL 0.5 MG TABLET PO SCH (17:01)
[2020-07-28] MEDS: MORPHINE SULFATE 10 MG/ML INJ IV PRN (18:05)
[2020-07-28] MEDS ORDERED: INSULIN GLARGINE,HUM.REC.ANLOG 1,000 UNIT/10 ML VIAL SUBCUT SCH (22:00)
[2020-07-28 22:30] LABS: VANCOMYCIN,TROUGH 10.9 ug/mL (5.0-20.0)
[2020-07-29] MEDS ORDERED: ALBUTEROL SULFATE HFA (90 MCG/PUFF) 8 GM MDI IH ONE (01:35)
[2020-07-29] MEDS: ALBUTEROL SULFATE HFA (90 MCG/PUFF) 8 GM MDI IH SCH ×6 (01:45→22:00)
[2020-07-29 05:24] LABS: ABSOLUTE LYMPHOCYTES (AUTO) 0.6 10^3/uL (0.5-4.7); ABSOLUTE MONOCYTES (AUTO) 0.5 10^3/uL (0.1-1.4); ABSOLUTE NEUT (AUTO) 9.8 10^3/uL (1.7-8.2); BASOPHILS % (AUTO) 0.1 % (0-2); EOSINOPHILS % (AUTO) 0.1 % (0-6); HEMATOCRIT 36.4 % (36.0-47.0); HEMOGLOBIN 12.6 g/dL (12.0-15.5); LYMPHOCYTES % (AUTO) 5.6 % (13-45); MEAN CORPUSCULAR HEMOGLOBIN 28.8 pg (27.0-33.4); MEAN CORPUSCULAR HGB CONC 34.5 g/dL (32.0-36.0); MEAN CORPUSCULAR VOLUME 83 fl (80-97); MONOCYTES % (AUTO) 4.6 % (3-13); PLATELET COUNT 240 10^3/uL (150-450); RED BLOOD COUNT 4.38 10^6/uL (3.72-5.28); RED CELL DISTRIBUTION WIDTH 14.6 % (11.5-14.0); SEGMENTED NEUTROPHILS % (AUTO) 89.6 % (42-78); TOTAL CELLS COUNTED % (AUTO) 100 %
[2020-07-29 05:57] LABS: C-REACTIVE PROTEIN 27.1 mg/L (<10.0)
[2020-07-29] MEDS: VANCOMYCIN HCL 1,500 MG in DEXTROSE 5%-WATER 250 ML IV SCH ×3 (06:36→22:34)
[2020-07-29] MEDS: ACETYLCYSTEINE 10% NEB 400 MG/4 ML VIAL NEB SCH ×2 (08:45→20:10)
[2020-07-29] MEDS: ALBUTEROL SULFATE 0.083% NEB 2.5 MG/3 ML AMPUL NEB PRN ×2 (08:45→20:10)
[2020-07-29] MEDS: ASCORBIC ACID 500 MG TABLET PO SCH ×2 (09:58→17:46)
[2020-07-29] MEDS: GLIMEPIRIDE 4 MG TABLET PO SCH (09:58)
[2020-07-29] MEDS: LISINOPRIL 10 MG TABLET PO SCH (09:58)
[2020-07-29] MEDS: METHYLPREDNISOLONE INJ 40 MG/1 ML SDV IV SCH ×2 (09:58→21:21)
[2020-07-29] MEDS: CHOLECALCIFEROL (D3) 1,000 UNIT (25 MCG) TABLET PO SCH (09:58)
[2020-07-29] MEDS: FAMOTIDINE 20 MG TABLET PO SCH ×2 (09:58→21:15)
[2020-07-29] MEDS: INSULIN LISPRO 100 UNIT/ML 3 ML VIAL SUBCUT SCH ×8 (09:59→22:34)
[2020-07-29] MEDS: ENOXAPARIN SODIUM INJ 120 MG/0.8 ML DISP.SYRIN SUBCUT SCH ×2 (09:59→21:20)
[2020-07-29] MEDS: ZINC SULFATE 220 MG CAPSULE PO SCH (09:59)
[2020-07-29] MEDS: INSULIN GLARGINE,HUM.REC.ANLOG 1,000 UNIT/10 ML VIAL SUBCUT SCH ×2 (10:00→21:14)
[2020-07-29] MEDS: CEFEPIME HCL 2 GM in DEXTROSE 5%-WATER 50 ML IV SCH ×2 (10:42→21:23)
[2020-07-29] MEDS: ACETAMINOPHEN 325 MG TABLET PO PRN (14:28)
--- NOTE | 2020-07-29 15:53 | PDOC PROGRESS REPORT ---
Subjective Date:: 07/29/20 Subjective:: Patient is resting in bed. Requesting removal of Campbell catheter. Still on high flow nasal cannula. Anxious for home. Reason For Visit: COVID PNA,HYPOXIA Physical Exam Vital Signs: Temp Pulse Resp BP Pulse Ox 98.2 F 79 26 H 152/81 H 96 07/29/20 11:56 07/29/20 11:56 07/29/20 08:45 07/29/20 11:56 07/29/20 11:56 Intake & Output 07/28/20 07/29/20 07/30/20 06:59 06:59 06:59 Intake Total 1467 3475 250 Output Total 1900 1400 Balance -433 2075 250 Weight 145.7 kg 144.4 kg 144.4 kg General appearance: PRESENT: cooperative, mild distress, morbidly obese, well- developed Head exam: PRESENT: atraumatic, normocephalic Ear exam: PRESENT: normal external ear exam. ABSENT: bleeding, drainage Mouth exam: PRESENT: moist, tongue midline Teeth exam: ABSENT: poor dentation Respiratory exam: PRESENT: rales - Faint rales upper lobes, symmetrical, tachypnea. ABSENT: accessory muscle use, prolonged expiratory phas - Decreased inspiratory phase, rhonchi, wheezes Cardiovascular exam: PRESENT: RRR, +S1, +S2. ABSENT: bradycardia, diastolic murmur, irregular rhythm, systolic murmur, tachycardia GI/Abdominal exam: PRESENT: normal bowel sounds, soft, other - Protuberant abdomen. ABSENT: guarding, tenderness Rectal exam: PRESENT: deferred Gentrourinary exam: PRESENT: indwelling catheter Extremities exam: ABSENT: pedal edema Musculoskeletal exam: PRESENT: ambulatory, normal inspection. ABSENT: deformity, dislocation Neurological exam: PRESENT: alert, awake, oriented to person, oriented to place, oriented to time, oriented to situation, CN II-XII grossly intact. ABSENT: altered, motor sensory deficit Psychiatric exam: PRESENT: appropriate affect. ABSENT: agitated, anxious Focused psych exam: ABSENT: delusional, paranoid, restlessness Skin exam: PRESENT: dry, normal color, warm. ABSENT: rash Results Laboratory Results: 07/29/20 04:53 07/28/20 21:56 07/28/20 07/29/20 07/29/20 21:56 04:53 04:53 WBC 11.0 H RBC 4.38 Hgb 12.6 Hct 36.4 MCV 83 MCH 28.8 MCHC 34.5 RDW 14.6 H Plt Count 240 Seg Neutrophils % 89.6 H Creatinine 0.55 Est GFR ( Amer) > 60 Ferritin 466.00 H C-Reactive Protein 27.1 H 07/23/20 17:13 Blood Blood Culture - Final NO GROWTH IN 5 DAYS 07/23/20 14:34 Blood Blood Culture - Final NO GROWTH IN 5 DAYS 07/27/20 13:00 Sputum Gram Stain - Final 07/27/20 13:00 Sputum Sputum Culture - Final 07/23/20 07/24/20 07/25/20 14:34 05:12 04:58 Creatine Kinase 424 H 145 H Troponin I < 0.012 NT-Pro-B Natriuret Pep 56 07/26/20 07/27/20 07/28/20 04:08 05:23 04:49 Creatine Kinase 41 22 L 38 Troponin I NT-Pro-B Natriuret Pep 07/29/20 04:53 Creatine Kinase 26 L Troponin I NT-Pro-B Natriuret Pep Impressions: Chest X-Ray 07/23/20 14:11 IMPRESSION: Low inspiratory lung volumes and diffuse patchy bilateral parenchymal opacities. Differential considerations include a multifocal pneumonia (including COVID-19), ARDS and pulmonary edema. Chest/Abdomen CTA 07/23/20 15:00 IMPRESSION: Extensive parenchymal opacities throughout the lungs typical of covid 19. No pulmonary emboli. Questionable liver mass. Evaluate when patient is stable. Abdomen/Pelvis CT 07/25/20 13:45 IMPRESSION: 1. BILATERAL PELVIC ADNEXAL CYSTS, MEASURING 4.5 CM AND 8 CM. PRESUMABLY OV CARLITA. WOULD CONSIDER FOLLOW-UP PELVIC ULTRASOUND WHEN ABLE. 2. SMALL CORTICAL CYST IN THE RIGHT KIDNEY. 3. NO LIVER MASS. 4. EXTENSIVE GROUND-GLASS INFILTRATES IN THE LOWER LOBES CONSISTENT WITH COVID- 19. 5. NO OTHER SIGNIFICANT OR ACUTE FINDING IN THE ABDOMEN OR PELVIS ON CT SCAN WITH IV CONTRAST. Assessment and Plan - Diagnosis (1) Acute respiratory failure with hypoxia Is this a current diagnosis for this admission?: Yes (2) Pneumonia due to COVID-19 virus Is this a current diagnosis for this admission?: Yes (3) Diabetes mellitus type 2 in obese Is this a current diagnosis for this admission?: Yes (4) Tachypnea Is this a current diagnosis for this admission?: Yes (5) Metabolic acidosis Is this a current diagnosis for this admission?: Yes (6) Diarrhea Qualifiers: Diarrhea type: infectious Qualified Code(s): A09 - Infectious gastroenteritis and colitis, unspecified Is this a current diagnosis for this admission?: Yes (7) Liver mass Is this a current diagnosis for this admission?: Yes (8) Morbid obesity with BMI of 50.0-59.9, adult Is this a current diagnosis for this admission?: Yes - Plan Summary Summary: (1) Acute respiratory failure with hypoxia Is this a current diagnosis for this admission?: Yes Plan: Remains quite hypoxic. On HFNC 90%/60L. SpO2 on mid 90s on my encounter. No improvement with diuresis so it was discontinued. 07/28 Patient actually physically appears the best I've seen her so far as she is no longer tachypneic and her breathing is no longer labored. Her hypoxia however has not shown improvement as she was on HFNC 95%/60L with spo2 at 85% though she appeared very comfortable. She had to be placed back on cpap. 07/29/2020-on high flow nasal cannula this afternoon. 60 L/min. Still with very limited inspiratory phase. (2) Pneumonia due to COVID-19 virus Is this a current diagnosis for this admission?: Yes Plan: She has quite severe disease with pneumonia involving most of lung parenchyma Tested positive outpatient at [facility]. Will switch decadron to Solumedrol multivitamin and zinc supplements. Remdesivir day 5 s/p 1 dose of Ivermectin and convalescent plasma. s/p 4 doses of Ceftriaxone - dc/d Azithromycin day 5 Seems to have worsening consolidation in the lower lobes in addition to groundglass so I will place on broad antibiotic Vancomycin and cefepime and get sputum cultures. Continue Lovenox 07/28/2020 I will continue her on Solu-Medrol and will continue Vanco/cefepime. Continue Lovenox. Sputum cultures seem to have yielded inadequate sampling. 07/29/2020-now on vancomycin/cefepime. Continue Lovenox. Consider repeat chest x-ray in the next day or so. Ongoing Solu-Medrol as well. Steroids are wreaking havoc with her sugars. (3) Diabetes mellitus type 2 in obese Is this a current diagnosis for this admission?: Yes Plan: Her hyperglycemia has been really hard to control since initiating steroids. Continue home dose of glimepiride. She does not use insulin at home and her A1c is 7.9 so hyperglycemia is mostly from steroids. I put her on Lantus and I have had to increase the dose every day. I have started premeal lispro today. I will change her Solu-Medrol from every 8 hours to every 12 hours but I will still like her to remain on steroids as she would likely benefit from this highly. 07/29/2020-if increase Lantus. She did get her Trulicity yesterday. I explained that while she is on steroids we will likely be chasing her [id number] Accu-Cheks and things should settle down as she comes off of the steroids. Increased activity will help as well. (4) Tachypnea Is this a current diagnosis for this admission?: Yes Plan: Metabolic acidosis has resolved. Still tachypneic due to hypoxia from pneumonia. Also gets very anxious. Try small doses of Ativan and morphine. We will have to be careful given her respiratory issues. So far she has shown no evidence of CO2 retention and actually is hyperventilating. 07/28/2020 Seems to be resolved today. Will monitor. 07/29/2020-still with intermittent tachypnea. Currently resting comfortably. (5) Metabolic acidosis Is this a current diagnosis for this admission?: Yes Plan: Secondary to diarrhea. Improved pretty much resolving 07/29/2020-still with diarrhea. We will recheck serum chemistries tomorrow. Acidosis likely resolved. (6) Diarrhea Qualifiers: Diarrhea type: infectious Qualified Code(s): A09 - Infectious gastroenteritis and colitis, unspecified Is this a current diagnosis for this admission?: Yes Plan: Likely secondary to COVID-19. C. difficile test is negative. Continue Imodium prn. Improved remarkably. Discontinue LR fluids. 07/29/2020-added probiotics to her regimen. (7) Liver mass Is this a current diagnosis for this admission?: Yes Plan: Abdominal CT shows no evidence of the liver mass noted on chest CTA. Ruled out. No further investigations. (8) Morbid obesity with BMI of 50.0-59.9, adult Is this a current diagnosis for this admission?: Yes Plan: BMI of 54.5. This puts her at significantly increased risk of a complicated COVID-19 course of infection. 07/29/2020-unfortunately the steroids may only have her gain some weight transiently. Once fully recovered from the infection she should consider aggressive diet management and initiating an exercise program. - Time Time Spent with patient: 15-24 minutes Medications reviewed and adjusted accordingly: Yes Anticipated Discharge Disposition: Home, Self Care Anticipated Discharge Timeframe: Unknown
[2020-07-29] MEDS: LACTOBACILLUS ACIDOPHILUS 250 MG TAB PO SCH (17:46)
[2020-07-29] MEDS: PRAMIPEXOLE DI-HCL 0.5 MG TABLET PO SCH (17:47)
[2020-07-30 05:29] LABS: ABSOLUTE EOSINOPHILS # (AUTO) 0.1 10^3/uL (0.0-0.6); ABSOLUTE LYMPHOCYTES (AUTO) 0.6 10^3/uL (0.5-4.7); ABSOLUTE MONOCYTES (AUTO) 0.4 10^3/uL (0.1-1.4); ABSOLUTE NEUT (AUTO) 7.9 10^3/uL (1.7-8.2); BASOPHILS % (AUTO) 0.2 % (0-2); EOSINOPHILS % (AUTO) 1.2 % (0-6); HEMATOCRIT 38.4 % (36.0-47.0); MEAN CORPUSCULAR HEMOGLOBIN 27.8 pg (27.0-33.4); MEAN CORPUSCULAR HGB CONC 33.7 g/dL (32.0-36.0); MEAN CORPUSCULAR VOLUME 83 fl (80-97); MONOCYTES % (AUTO) 4.5 % (3-13); PLATELET COUNT 233 10^3/uL (150-450); RED BLOOD COUNT 4.66 10^6/uL (3.72-5.28); SEGMENTED NEUTROPHILS % (AUTO) 87.1 % (42-78); TOTAL CELLS COUNTED % (AUTO) 100 %
[2020-07-30 05:51] LABS: ALBUMIN 2.9 g/dL (3.5-5.0); ALKALINE PHOSPHATASE 263 U/L (38-126); ANION GAP 9 (5-19); ASPARTATE AMINO TRANSFERASE 30 U/L (14-36); BILIRUBIN,DIRECT 0.4 mg/dL (0.0-0.4); BILIRUBIN,TOTAL 0.9 mg/dL (0.2-1.3); BLOOD UREA NITROGEN 23 mg/dL (7-20); CALCIUM 8.5 mg/dL (8.4-10.2); CARBON DIOXIDE 23 mmol/L (22-30); CHLORIDE 100 mmol/L (98-107); GLUCOSE 318 mg/dL (75-110); POTASSIUM 4.5 mmol/L (3.6-5.0); TOTAL PROTEIN 5.4 g/dL (6.3-8.2)
[2020-07-30] MEDS: ALBUTEROL SULFATE HFA (90 MCG/PUFF) 8 GM MDI IH SCH ×3 (06:37→17:26)
[2020-07-30] MEDS: VANCOMYCIN HCL 1,500 MG in DEXTROSE 5%-WATER 250 ML IV SCH ×3 (06:37→23:44)
[2020-07-30] MEDS: ALBUTEROL SULFATE 0.083% NEB 2.5 MG/3 ML AMPUL NEB PRN ×2 (08:08→20:47)
[2020-07-30] MEDS: ACETYLCYSTEINE 10% NEB 400 MG/4 ML VIAL NEB SCH ×2 (08:08→20:47)
[2020-07-30] MEDS: ZINC SULFATE 220 MG CAPSULE PO SCH (09:09)
[2020-07-30] MEDS: CHOLECALCIFEROL (D3) 1,000 UNIT (25 MCG) TABLET PO SCH (09:10)
[2020-07-30] MEDS: LACTOBACILLUS ACIDOPHILUS 250 MG TAB PO SCH ×2 (09:10→17:25)
[2020-07-30] MEDS: FAMOTIDINE 20 MG TABLET PO SCH ×2 (09:10→21:27)
[2020-07-30] MEDS: ASCORBIC ACID 500 MG TABLET PO SCH ×2 (09:10→17:25)
[2020-07-30] MEDS: GLIMEPIRIDE 4 MG TABLET PO SCH (09:10)
[2020-07-30] MEDS: LISINOPRIL 10 MG TABLET PO SCH (09:11)
[2020-07-30] MEDS: INSULIN LISPRO 100 UNIT/ML 3 ML VIAL SUBCUT SCH ×7 (09:12→21:58)
[2020-07-30] MEDS: METHYLPREDNISOLONE INJ 40 MG/1 ML SDV IV SCH ×2 (09:12→21:24)
[2020-07-30] MEDS: CEFEPIME HCL 2 GM in DEXTROSE 5%-WATER 50 ML IV SCH ×2 (09:13→21:26)
[2020-07-30] MEDS: INSULIN GLARGINE,HUM.REC.ANLOG 1,000 UNIT/10 ML VIAL SUBCUT SCH ×2 (09:13→21:24)
[2020-07-30] MEDS: ENOXAPARIN SODIUM INJ 120 MG/0.8 ML DISP.SYRIN SUBCUT SCH ×2 (09:14→21:24)
[2020-07-30] MEDS ORDERED: SITAGLIPTIN PHOSPHATE 50 MG TABLET PO SCH (10:00)
--- NOTE | 2020-07-30 13:25 | PDOC PROGRESS REPORT ---
Subjective Date:: 07/30/20 Subjective:: Remains off of CPAP all night. Has been on high flow nasal cannula and has been stable. She is actually up in a chair eating lunch. Campbell catheter is out and she is urinating without difficulty. Reason For Visit: COVID PNA,HYPOXIA Physical Exam Vital Signs: Temp Pulse Resp BP Pulse Ox 98.1 F 80 22 H 135/69 H 92 07/30/20 09:38 07/30/20 08:08 07/30/20 08:08 07/30/20 07:55 07/30/20 08:08 Intake & Output 07/29/20 07/30/20 07/31/20 06:59 06:59 06:59 Intake Total 3475 1782 250 Output Total 1400 1050 Balance 2075 732 250 Weight 144.4 kg 144.4 kg General appearance: PRESENT: mild distress, morbidly obese Head exam: PRESENT: atraumatic, normocephalic Ear exam: PRESENT: normal external ear exam. ABSENT: bleeding, drainage Respiratory exam: PRESENT: clear to auscultation tayla, symmetrical, unlabored, other - Still with very shortened inspiratory phase. ABSENT: rales, rhonchi, tachypnea, wheezes Cardiovascular exam: PRESENT: RRR, +S1, +S2. ABSENT: bradycardia, diastolic murmur, irregular rhythm, systolic murmur, tachycardia GI/Abdominal exam: PRESENT: normal bowel sounds, soft. ABSENT: tenderness Rectal exam: PRESENT: deferred Gentrourinary exam: ABSENT: indwelling catheter Neurological exam: PRESENT: alert, awake, oriented to person, oriented to place, oriented to time, oriented to situation, CN II-XII grossly intact. ABSENT: altered Psychiatric exam: PRESENT: appropriate affect. ABSENT: agitated, anxious Focused psych exam: ABSENT: delusional, paranoid, restlessness Skin exam: PRESENT: dry, normal color, warm. ABSENT: rash Results Laboratory Results: 07/30/20 04:38 07/30/20 04:38 07/30/20 07/30/20 04:38 04:38 WBC 9.0 RBC 4.66 Hgb 13.0 Hct 38.4 MCV 83 MCH 27.8 MCHC 33.7 RDW 15.0 H Plt Count 233 Seg Neutrophils % 87.1 H Sodium 132.1 L Potassium 4.5 Chloride 100 Carbon Dioxide 23 Anion Gap 9 BUN 23 H Creatinine 0.54 Est GFR ( Amer) > 60 Glucose 318 H Calcium 8.5 Ferritin 421.00 H Total Bilirubin 0.9 AST 30 Alkaline Phosphatase 263 H Total Protein 5.4 L Albumin 2.9 L 07/23/20 07/24/20 07/25/20 14:34 05:12 04:58 Creatine Kinase 424 H 145 H Troponin I < 0.012 NT-Pro-B Natriuret Pep 56 07/26/20 07/27/20 07/28/20 04:08 05:23 04:49 Creatine Kinase 41 22 L 38 Troponin I NT-Pro-B Natriuret Pep 07/29/20 04:53 Creatine Kinase 26 L Troponin I NT-Pro-B Natriuret Pep Impressions: Chest X-Ray 07/23/20 14:11 IMPRESSION: Low inspiratory lung volumes and diffuse patchy bilateral parenchymal opacities. Differential considerations include a multifocal pneumonia (including COVID-19), ARDS and pulmonary edema. Chest/Abdomen CTA 07/23/20 15:00 IMPRESSION: Extensive parenchymal opacities throughout the lungs typical of covid 19. No pulmonary emboli. Questionable liver mass. Evaluate when patient is stable. Abdomen/Pelvis CT 07/25/20 13:45 IMPRESSION: 1. BILATERAL PELVIC ADNEXAL CYSTS, MEASURING 4.5 CM AND 8 CM. PRESUMABLY OVARIAN. WOULD CONSIDER FOLLOW-UP PELVIC ULTRASOUND WHEN ABLE. 2. SMALL CORTICAL CYST IN THE RIGHT KIDNEY. 3. NO LIVER MASS. 4. EXTENSIVE GROUND-GLASS INFILTRATES IN THE LOWER LOBES CONSISTENT WITH COVID- 19. 5. NO OTHER SIGNIFICANT OR ACUTE FINDING IN THE ABDOMEN OR PELVIS ON CT SCAN WITH IV CONTRAST. Assessment and Plan - Diagnosis (1) Acute respiratory failure with hypoxia Is this a current diagnosis for this admission?: Yes (2) Pneumonia due to COVID-19 virus Is this a current diagnosis for this admission?: Yes (3) Diabetes mellitus type 2 in obese Is this a current diagnosis for this admission?: Yes (4) Tachypnea Is this a current diagnosis for this admission?: Yes (5) Metabolic acidosis Is this a current diagnosis for this admission?: Yes (6) Diarrhea Qualifiers: Diarrhea type: infectious Qualified Code(s): A09 - Infectious gastroenteritis and colitis, unspecified Is this a current diagnosis for this admission?: Yes (7) Liver mass Is this a current diagnosis for this admission?: Yes (8) Morbid obesity with BMI of 50.0-59.9, adult Is this a current diagnosis for this admission?: Yes - Plan Summary Summary: (1) Acute respiratory failure with hypoxia Is this a current diagnosis for this admission?: Yes Plan: Remains quite hypoxic. On HFNC 90%/60L. SpO2 on mid 90s on my encounter. No improvement with diuresis so it was discontinued. 07/28 Patient actually physically appears the best I've seen her so far as she is no longer tachypneic and her breathing is no longer labored. Her hypoxia however has not shown improvement as she was on HFNC 95%/60L with spo2 at 85% though she appeared very comfortable. She had to be placed back on cpap. 07/29/2020-on high flow nasal cannula this afternoon. 60 L/min. Still with very limited inspiratory phase. (2) Pneumonia due to COVID-19 virus Is this a current diagnosis for this admission?: Yes Plan: She has quite severe disease with pneumonia involving most of lung parenchyma Tested positive outpatient at [facility]. Will switch decadron to Solumedrol multivitamin and zinc supplements. Remdesivir day 5 s/p 1 dose of Ivermectin and convalescent plasma. s/p 4 doses of Ceftriaxone - dc/d Azithromycin day 5 Seems to have worsening consolidation in the lower lobes in addition to groundglass so I will place on broad antibiotic Vancomycin and cefepime and get sputum cultures. Continue Lovenox 07/28/2020 I will continue her on Solu-Medrol and will continue Vanco/cefepime. Continue Lovenox. Sputum cultures seem to have yielded inadequate sampling. 07/29/2020-now on vancomycin/cefepime. Continue Lovenox. Consider repeat chest x-ray in the next day or so. Ongoing Solu-Medrol as well. Steroids are wreaking havoc with her sugars. (3) Diabetes mellitus type 2 in obese Is this a current diagnosis for this admission?: Yes Plan: Her hyperglycemia has been really hard to control since initiating steroids. Continue home dose of glimepiride. She does not use insulin at home and her A1c is 7.9 so hyperglycemia is mostly from steroids. I put her on Lantus and I have had to increase the dose every day. I have started premeal lispro today. I will change her Solu-Medrol from every 8 hours to every 12 hours but I will still like her to remain on steroids as she would likely benefit from this highly. 07/29/2020-if increase Lantus. She did get her Trulicity yesterday. I explained that while she is on steroids we will likely be chasing her [id number] Accu-Cheks and things should settle down as she comes off of the steroids. Increased activity will help as well. (4) Tachypnea Is this a current diagnosis for this admission?: Yes Plan: Metabolic acidosis has resolved. Still tachypneic due to hypoxia from pneumonia. Also gets very anxious. Try small doses of Ativan and morphine. We will have to be careful given her respiratory issues. So far she has shown no evidence of CO2 retention and actually is hyperventilating. 07/28/2020 Seems to be resolved today. Will monitor. 07/29/2020-still with intermittent tachypnea. Currently resting comfortably. (5) Metabolic acidosis Is this a current diagnosis for this admission?: Yes Plan: Secondary to diarrhea. Improved pretty much resolving 07/29/2020-still with diarrhea. We will recheck serum chemistries tomorrow. Acidosis likely resolved. (6) Diarrhea Qualifiers: Diarrhea type: infectious Qualified Code(s): A09 - Infectious gastroenteritis and colitis, unspecified Is this a current diagnosis for this admission?: Yes Plan: Likely secondary to COVID-19. C. difficile test is negative. Continue Imodium prn. Improved remarkably. Discontinue LR fluids. 07/29/2020-added probiotics to her regimen. (7) Liver mass Is this a current diagnosis for this admission?: Yes Plan: Abdominal CT shows no evidence of the liver mass noted on chest CTA. Ruled out. No further investigations. (8) Morbid obesity with BMI of 50.0-59.9, adult Is this a current diagnosis for this admission?: Yes Plan: BMI of 54.5. This puts her at significantly increased risk of a complicated COVID-19 course of infection. 07/29/2020-unfortunately the steroids may only have her gain some weight transiently. Once fully recovered from the infection she should consider aggressive diet management and initiating an exercise program. 07/30/2020 Respiratory failure secondary to Covid pneumonia-did not require CPAP last night. Hopefully can remain on high flow nasal cannula with gradual taper. Continue steroids. I do not believe there is a necessity for IV antibiotics at this time. Her white count has never been significantly elevated and the only fever she had was the day of admission at 101.0 F. Covid pneumonia-continue supportive care including steroids Diarrhea-currently resolved Hyperglycemia due to diabetes-the patient can resume her Glyxambi once family brings the medication in. We will discontinue the sitagliptin when she starts the Glyxambi. Hopefully this will help with glucose control. I still think the steroids are contributing significantly. Also consider changing to a controlled carbohydrate diet level 3. Obesity-the patient's weight is down 4 kg since admission. Continue to weigh daily. I did have a chance to speak with the patient's mother during this encounter. This conversation did bring her up-to-date regarding her daughter's progress. - Time Time Spent with patient: 15-24 minutes Medications reviewed and adjusted accordingly: Yes Anticipated Discharge Disposition: Home with Home Health Anticipated Discharge Timeframe: Unknown
[2020-07-30] MEDS: PRAMIPEXOLE DI-HCL 0.5 MG TABLET PO SCH (17:25)
[2020-07-31 05:26] LABS: HEMATOCRIT 36.9 % (36.0-47.0); MEAN CORPUSCULAR HEMOGLOBIN 28.5 pg (27.0-33.4); MEAN CORPUSCULAR HGB CONC 35.3 g/dL (32.0-36.0); MEAN CORPUSCULAR VOLUME 81 fl (80-97); PLATELET COUNT 256 10^3/uL (150-450); RED BLOOD COUNT 4.56 10^6/uL (3.72-5.28); RED CELL DISTRIBUTION WIDTH 14.9 % (11.5-14.0); WHITE BLOOD COUNT 10.6 10^3/uL (4.0-10.5)
[2020-07-31 06:03] LABS: ABSOLUTE LYMPHOCYTES# (MANUAL) 0.4 10^3/uL (0.5-4.7); ABSOLUTE MONOCYTES # (MANUAL) 1.1 10^3/uL (0.1-1.4); BAND NEUTROPHILS % (MANUAL) 1 % (3-5); BASOPHILS % (MANUAL) 0 % (0-2); EOSINOPHILS % (MANUAL) 0 % (0-6); LYMPHOCYTES % (MANUAL) 4 % (13-45); MONOCYTES % (MANUAL) 10 % (3-13); SEGMENTED NEUTROPHILS % (MAN) 85 % (42-78); TOTAL CELLS COUNTED 100
[2020-07-31 06:04] LABS: TOXIC GRANULATION 1+
[2020-07-31 06:05] LABS: ANISOCYTOSIS SLIGHT; OVALOCYTES SLIGHT; PLATELET COMMENT ADEQUATE; POIKILOCYTOSIS SLIGHT; SCHISTOCYTES SLIGHT
[2020-07-31] MEDS: ALBUTEROL SULFATE HFA (90 MCG/PUFF) 8 GM MDI IH SCH ×4 (06:35→17:06)
[2020-07-31] MEDS: VANCOMYCIN HCL 1,500 MG in DEXTROSE 5%-WATER 250 ML IV SCH (06:36)
[2020-07-31] MEDS ORDERED: EMPAGLIFLOZIN PO SCH (08:00)
[2020-07-31] MEDS ORDERED: LINAGLIPTIN PO SCH (08:00)
[2020-07-31] MEDS ORDERED: [UNRECOGNIZED DRUG - OTHER] PO SCH (08:00)
[2020-07-31] MEDS: EMPAGLIFLOZIN PO SCH (08:21)
[2020-07-31] MEDS: LINAGLIPTIN PO SCH (08:21)
[2020-07-31] MEDS: INSULIN LISPRO 100 UNIT/ML 3 ML VIAL SUBCUT SCH ×7 (08:22→21:51)
[2020-07-31] MEDS: ALBUTEROL SULFATE 0.083% NEB 2.5 MG/3 ML AMPUL NEB PRN ×2 (09:22→20:03)
[2020-07-31] MEDS: ACETYLCYSTEINE 10% NEB 400 MG/4 ML VIAL NEB SCH ×2 (09:22→20:03)
[2020-07-31] MEDS: LACTOBACILLUS ACIDOPHILUS 250 MG TAB PO SCH ×2 (09:58→17:05)
[2020-07-31] MEDS: ASCORBIC ACID 500 MG TABLET PO SCH ×2 (09:58→17:05)
[2020-07-31] MEDS: ZINC SULFATE 220 MG CAPSULE PO SCH (09:58)
[2020-07-31] MEDS: LISINOPRIL 10 MG TABLET PO SCH (09:58)
[2020-07-31] MEDS: FAMOTIDINE 20 MG TABLET PO SCH ×2 (09:58→21:52)
[2020-07-31] MEDS: CHOLECALCIFEROL (D3) 1,000 UNIT (25 MCG) TABLET PO SCH (09:58)
[2020-07-31] MEDS: INSULIN GLARGINE,HUM.REC.ANLOG 1,000 UNIT/10 ML VIAL SUBCUT SCH ×2 (09:59→23:36)
[2020-07-31] MEDS: GLIMEPIRIDE 4 MG TABLET PO SCH (09:59)
[2020-07-31] MEDS: ENOXAPARIN SODIUM INJ 120 MG/0.8 ML DISP.SYRIN SUBCUT SCH ×2 (09:59→21:52)
[2020-07-31] MEDS: METHYLPREDNISOLONE INJ 40 MG/1 ML SDV IV SCH ×2 (10:00→22:12)
[2020-07-31] MEDS: PRAMIPEXOLE DI-HCL 0.5 MG TABLET PO SCH (17:05)
--- NOTE | 2020-07-31 19:20 | PDOC PROGRESS REPORT ---
Subjective Date:: 07/31/20 Subjective:: The patient is sitting up in the chair this evening. She remains on high flow n shiva cannula but she is down to 45 L/min from 60 and has been maintaining good oxygen saturation. Also her Accu-Cheks have been under 200 on the last 2 tests. Reason For Visit: COVID PNA,HYPOXIA Physical Exam Vital Signs: Temp Pulse Resp BP Pulse Ox 98.0 F 82 19 118/71 99 07/31/20 15:40 07/31/20 15:40 07/31/20 15:40 07/31/20 15:40 07/31/20 17:49 Intake & Output 07/30/20 07/31/20 08/01/20 06:59 06:59 06:59 Intake Total 1782 1390 872 Output Total 1050 0 Balance 732 1390 872 Weight 144.4 kg 145.2 kg General appearance: PRESENT: cooperative, mild distress, morbidly obese Head exam: PRESENT: atraumatic, normocephalic Ear exam: PRESENT: normal external ear exam. ABSENT: bleeding, drainage Mouth exam: PRESENT: moist, tongue midline Respiratory exam: PRESENT: clear to auscultation tayla, symmetrical, unlabored. ABSENT: rales, rhonchi, tachypnea, wheezes Cardiovascular exam: PRESENT: RRR, +S1, +S2. ABSENT: bradycardia, diastolic murmur, irregular rhythm, systolic murmur, tachycardia GI/Abdominal exam: PRESENT: normal bowel sounds, soft. ABSENT: tenderness Rectal exam: PRESENT: deferred Gentrourinary exam: ABSENT: indwelling catheter Musculoskeletal exam: PRESENT: ambulatory, normal inspection. ABSENT: deformity, dislocation Neurological exam: PRESENT: alert, awake, oriented to person, oriented to place, oriented to time, oriented to situation, CN II-XII grossly intact. ABSENT: altered Psychiatric exam: PRESENT: appropriate affect. ABSENT: agitated, anxious Focused psych exam: ABSENT: delusional, paranoid, restlessness Skin exam: PRESENT: dry, normal color, warm. ABSENT: rash Results Laboratory Results: 07/31/20 05:03 07/30/20 04:38 07/31/20 07/31/20 05:03 05:03 WBC 10.6 H RBC 4.56 Hgb 13.0 Hct 36.9 MCV 81 MCH 28.5 MCHC 35.3 RDW 14.9 H Plt Count 256 Seg Neutrophils % Not Reportable Ferritin 459.00 H 07/23/20 07/24/20 07/25/20 14:34 05:12 04:58 Creatine Kinase 424 H 145 H Troponin I < 0.012 NT-Pro-B Natriuret Pep 56 07/26/20 07/27/20 07/28/20 04:08 05:23 04:49 Creatine Kinase 41 22 L 38 Troponin I NT-Pro-B Natriuret Pep 07/29/20 04:53 Creatine Kinase 26 L Troponin I NT-Pro-B Natriuret Pep Impressions: Chest X-Ray 07/23/20 14:11 IMPRESSION: Low inspiratory lung volumes and diffuse patchy bilateral parenchymal opacities. Differential considerations include a multifocal pneumonia (including COVID-19), ARDS and pulmonary edema. Chest/Abdomen CTA 07/23/20 15:00 IMPRESSION: Extensive parenchymal opacities throughout the lungs typical of covid 19. No pulmonary emboli. Questionable liver mass. Evaluate when patient is stable. Abdomen/Pelvis CT 07/25/20 13:45 IMPRESSION: 1. BILATERAL PELVIC ADNEXAL CYSTS, MEASURING 4.5 CM AND 8 CM. PRESUMABLY OVARIAN. WOULD CONSIDER FOLLOW-UP PELVIC ULTRASOUND WHEN ABLE. 2. SMALL CORTICAL CYST IN THE RIGHT KIDNEY. 3. NO LIVER MASS. 4. EXTENSIVE GROUND-GLASS INFILTRATES IN THE LOWER LOBES CONSISTENT WITH COVID- 19. 5. NO OTHER SIGNIFICANT OR ACUTE FINDING IN THE ABDOMEN OR PELVIS ON CT SCAN WITH IV CONTRAST. Assessment and Plan - Diagnosis (1) Acute respiratory failure with hypoxia Is this a current diagnosis for this admission?: Yes (2) Pneumonia due to COVID-19 virus Is this a current diagnosis for this admission?: Yes (3) Diabetes mellitus type 2 in obese Is this a current diagnosis for this admission?: Yes (4) Tachypnea Is this a current diagnosis for this admission?: Yes (5) Metabolic acidosis Is this a current diagnosis for this admission?: Yes (6) Diarrhea Qualifiers: Diarrhea type: infectious Qualified Code(s): A09 - Infectious gastroenteritis and colitis, unspecified Is this a current diagnosis for this admission?: Yes (7) Liver mass Is this a current diagnosis for this admission?: Yes (8) Morbid obesity with BMI of 50.0-59.9, adult Is this a current diagnosis for this admission?: Yes - Plan Summary Summary: (1) Acute respiratory failure with hypoxia Is this a current diagnosis for this admission?: Yes Plan: Remains quite hypoxic. On HFNC 90%/60L. SpO2 on mid 90s on my encounter. No improvement with diuresis so it was discontinued. 07/28 Patient actually physically appears the best I've seen her so far as she is no longer tachypneic and her breathing is no longer labored. Her hypoxia however has not shown improvement as she was on HFNC 95%/60L with spo2 at 85% though she appeared very comfortable. She had to be placed back on cpap. 07/29/2020-on high flow nasal cannula this afternoon. 60 L/min. Still with very limited inspiratory phase. (2) Pneumonia due to COVID-19 virus Is this a current diagnosis for this admission?: Yes Plan: She has quite severe disease with pneumonia involving most of lung parenchyma Tested positive outpatient at [facility]. Will switch decadron to Solumedrol multivitamin and zinc supplements. Remdesivir day 5 s/p 1 dose of Ivermectin and convalescent plasma. s/p 4 doses of Ceftriaxone - dc/d Azithromycin day 5 Seems to have worsening consolidation in the lower lobes in addition to groundglass so I will place on broad antibiotic Vancomycin and cefepime and get sputum cultures. Continue Lovenox 07/28/2020 I will continue her on Solu-Medrol and will continue Vanco/cefepime. Continue Lovenox. Sputum cultures seem to have yielded inadequate sampling. 07/29/2020-now on vancomycin/cefepime. Continue Lovenox. Consider repeat chest x-ray in the next day or so. Ongoing Solu-Medrol as well. Steroids are wreaking havoc with her sugars. (3) Diabetes mellitus type 2 in obese Is this a current diagnosis for this admission?: Yes Plan: Her hyperglycemia has been really hard to control since initiating steroids. Continue home dose of glimepiride. She does not use insulin at home and her A1c is 7.9 so hyperglycemia is mostly from steroids. I put her on Lantus and I have had to increase the dose every day. I have started premeal lispro today. I will change her Solu-Medrol from every 8 hours to every 12 hours but I will still like her to remain on steroids as she would likely benefit from this hi ghly. 07/29/2020-if increase Lantus. She did get her Trulicity yesterday. I explained that while she is on steroids we will likely be chasing her [id number] Accu-Cheks and things should settle down as she comes off of the steroids. Increased activity will help as well. (4) Tachypnea Is this a current diagnosis for this admission?: Yes Plan: Metabolic acidosis has resolved. Still tachypneic due to hypoxia from pneumonia. Also gets very anxious. Try small doses of Ativan and morphine. We will have to be careful given her respiratory issues. So far she has shown no evidence of CO2 retention and actually is hyperventilating. 07/28/2020 Seems to be resolved today. Will monitor. 07/29/2020-still with intermittent tachypnea. Currently resting comfortably. (5) Metabolic acidosis Is this a current diagnosis for this admission?: Yes Plan: Secondary to diarrhea. Improved pretty much resolving 07/29/2020-still with diarrhea. We will recheck serum chemistries tomorrow. Acidosis likely resolved. (6) Diarrhea Qualifiers: Diarrhea type: infectious Qualified Code(s): A09 - Infectious gastroenteritis and colitis, unspecified Is this a current diagnosis for this admission?: Yes Plan: Likely secondary to COVID-19. C. difficile test is negative. Continue Imodium prn. Improved remarkably. Discontinue LR fluids. 07/29/2020-added probiotics to her regimen. (7) Liver mass Is this a current diagnosis for this admission?: Yes Plan: Abdominal CT shows no evidence of the liver mass noted on chest CTA. Ruled out. No further investigations. (8) Morbid obesity with BMI of 50.0-59.9, adult Is this a current diagnosis for this admission?: Yes Plan: BMI of 54.5. This puts her at significantly increased risk of a complicated COVID-19 course of infection. 07/29/2020-unfortunately the steroids may only have her gain some weight transiently. Once fully recovered from the infection she should consider aggressive diet management and initiating an exercise program. 07/30/2020 Respiratory failure secondary to Covid pneumonia-did not require CPAP last night. Hopefully can remain on high flow nasal cannula with gradual taper. Continue steroids. I do not believe there is a necessity for IV antibiotics at this time. Her white count has never been significantly elevated and the only fever she had was the day of admission at 101.0 F. Covid pneumonia-continue supportive care including steroids Diarrhea-currently resolved Hyperglycemia due to diabetes-the patient can resume her Glyxambi once family brings the medication in. We will discontinue the sitagliptin when she starts the Glyxambi. Hopefully this will help with glucose control. I still think the steroids are contributing significantly. Also consider changing to a controlled carbohydrate diet level 3. Obesity-the patient's weight is down 4 kg since admission. Continue to weigh daily. I did have a chance to speak with the patient's mother during this encounter. This conversation did bring her up-to-date regarding her daughter's progress. 12/30/2019 Respiratory failure-we are finally starting to make some progress. The patient is down to 45 L/min on her high flow nasal cannula. We will continue to taper the oxygen. No change in steroids yet. No longer requiring IV antibiotics. Hyperglycemia-by starting the Glyxambi from home her last 2 Accu-Cheks were less than 200. I told her that we would monitor the Accu-Cheks and start adjusting the insulin dosing. We will be combination of adjusting the mealtime dose and Lantus. The sliding scale will remain unchanged. Morbid obesity-continue daily weights. The patient will likely lose several more kilograms prior to discharge. Recheck labs tomorrow - Time Time Spent with patient: 15-24 minutes Medications reviewed and adjusted accordingly: Yes Anticipated Discharge Disposition: Home with Home Health Anticipated Discharge Timeframe: Unknown
[2020-08-01] MEDS: ALBUTEROL SULFATE HFA (90 MCG/PUFF) 8 GM MDI IH SCH ×4 (04:46→17:01)
[2020-08-01 06:15] LABS: ALKALINE PHOSPHATASE 198 U/L (38-126); ANION GAP 7 (5-19); ASPARTATE AMINO TRANSFERASE 23 U/L (14-36); BILIRUBIN,DIRECT 0.3 mg/dL (0.0-0.4); BILIRUBIN,TOTAL 0.8 mg/dL (0.2-1.3); BLOOD UREA NITROGEN 26 mg/dL (7-20); CARBON DIOXIDE 24 mmol/L (22-30); CHLORIDE 102 mmol/L (98-107); GLUCOSE 197 mg/dL (75-110); POTASSIUM 4.7 mmol/L (3.6-5.0); TOTAL PROTEIN 5.6 g/dL (6.3-8.2)
[2020-08-01] MEDS: INSULIN LISPRO 100 UNIT/ML 3 ML VIAL SUBCUT SCH ×7 (08:41→22:09)
[2020-08-01] MEDS: LINAGLIPTIN PO SCH (09:00)
[2020-08-01] MEDS: EMPAGLIFLOZIN PO SCH (09:00)
[2020-08-01] MEDS: CHOLECALCIFEROL (D3) 1,000 UNIT (25 MCG) TABLET PO SCH (09:02)
[2020-08-01] MEDS: FAMOTIDINE 20 MG TABLET PO SCH ×2 (09:02→22:08)
[2020-08-01] MEDS: ZINC SULFATE 220 MG CAPSULE PO SCH (09:03)
[2020-08-01] MEDS: ASCORBIC ACID 500 MG TABLET PO SCH ×2 (09:03→17:01)
[2020-08-01] MEDS: GLIMEPIRIDE 4 MG TABLET PO SCH (09:03)
[2020-08-01] MEDS: LISINOPRIL 10 MG TABLET PO SCH (09:03)
[2020-08-01] MEDS: INSULIN GLARGINE,HUM.REC.ANLOG 1,000 UNIT/10 ML VIAL SUBCUT SCH ×2 (09:03→22:08)
[2020-08-01] MEDS: LACTOBACILLUS ACIDOPHILUS 250 MG TAB PO SCH ×2 (09:03→17:01)
[2020-08-01] MEDS: ENOXAPARIN SODIUM INJ 120 MG/0.8 ML DISP.SYRIN SUBCUT SCH ×2 (09:04→22:08)
[2020-08-01] MEDS: METHYLPREDNISOLONE INJ 40 MG/1 ML SDV IV SCH ×2 (09:04→22:08)
[2020-08-01] MEDS: ACETYLCYSTEINE 10% NEB 400 MG/4 ML VIAL NEB SCH (09:15)
[2020-08-01] MEDS: ALBUTEROL SULFATE 0.083% NEB 2.5 MG/3 ML AMPUL NEB PRN (09:15)
--- NOTE | 2020-08-01 14:08 | PDOC PROGRESS REPORT ---
Subjective Date:: 08/01/20 Subjective:: The patient is sitting up in the chair. She is resting comfortably. She remains on high flow nasal cannula but the liters per minute has come down significantly. She in fact continues to feel better. She is anxious for home but I explained to her that she would have to be a lot more stable before considering discharge. Reason For Visit: COVID PNA,HYPOXIA Physical Exam Vital Signs: Temp Pulse Resp BP Pulse Ox 98.6 F 92 20 124/68 93 08/01/20 11:22 08/01/20 14:00 08/01/20 12:50 08/01/20 11:22 08/01/20 12:50 Intake & Output 07/31/20 08/01/20 08/02/20 06:59 06:59 06:59 Intake Total 1390 872 Output Total 0 Balance 1390 872 Weight 145.2 kg 144.8 kg General appearance: PRESENT: cooperative, mild distress, morbidly obese, well- developed Head exam: PRESENT: atraumatic, normocephalic Mouth exam: PRESENT: moist, tongue midline Teeth exam: ABSENT: poor dentation Neck exam: ABSENT: carotid bruit, JVD, lymphadenopathy, tracheostomy Respiratory exam: PRESENT: clear to auscultation tayla, symmetrical, unlabored. ABSENT: prolonged expiratory phas, rhonchi, tachypnea, wheezes Cardiovascular exam: PRESENT: RRR, +S1, +S2. ABSENT: bradycardia, diastolic murmur, irregular rhythm, systolic murmur, tachycardia GI/Abdominal exam: PRESENT: normal bowel sounds, soft, other - protuberant abdomen. ABSENT: distended, tenderness Rectal exam: PRESENT: deferred Gentrourinary exam: ABSENT: indwelling catheter Musculoskeletal exam: PRESENT: ambulatory, normal inspection. ABSENT: deformity, dislocation Neurological exam: PRESENT: alert, awake, oriented to person, oriented to place, oriented to time, oriented to situation, CN II-XII grossly intact. ABSENT: altered Psychiatric exam: PRESENT: appropriate affect. ABSENT: agitated, anxious Focused psych exam: ABSENT: delusional, paranoid, restlessness Skin exam: PRESENT: dry, normal color, warm. ABSENT: rash Results Laboratory Results: 07/31/20 05:03 08/01/20 05:12 08/01/20 05:12 Sodium 133.4 L Potassium 4.7 Chloride 102 Carbon Dioxide 24 Anion Gap 7 BUN 26 H Creatinine 0.54 Est GFR ( Amer) > 60 Glucose 197 H Calcium 9.0 Ferritin 418.00 H Total Bilirubin 0.8 AST 23 Alkaline Phosphatase 198 H Total Protein 5.6 L Albumin 3.0 L 07/23/20 07/24/20 07/25/20 14:34 05:12 04:58 Creatine Kinase 424 H 145 H Troponin I < 0.012 NT-Pro-B Natriuret Pep 56 07/26/20 07/27/20 07/28/20 04:08 05:23 04:49 Creatine Kinase 41 22 L 38 Troponin I NT-Pro-B Natriuret Pep 07/29/20 04:53 Creatine Kinase 26 L Troponin I NT-Pro-B Natriuret Pep Impressions: Chest X-Ray 07/23/20 14:11 IMPRESSION: Low inspiratory lung volumes and diffuse patchy bilateral parenchymal opacities. Differential considerations include a multifocal pneumonia (including COVID-19), ARDS and pulmonary edema. Chest/Abdomen CTA 07/23/20 15:00 IMPRESSION: Extensive parenchymal opacities throughout the lungs typical of covid 19. No pulmonary emboli. Questionable liver mass. Evaluate when patient is stable. Abdomen/Pelvis CT 07/25/20 13:45 IMPRESSION: 1. BILATERAL PELVIC ADNEXAL CYSTS, MEASURING 4.5 CM AND 8 CM. PRESUMABLY OVARIAN. WOULD CONSIDER FOLLOW-UP PELVIC ULTRASOUND WHEN ABLE. 2. SMALL CORTICAL CYST IN THE RIGHT KIDNEY. 3. NO LIVER MASS. 4. EXTENSIVE GROUND-GLASS INFILTRATES IN THE LOWER LOBES CONSISTENT WITH COVID- 19. 5. NO OTHER SIGNIFICANT OR ACUTE FINDING IN THE ABDOMEN OR PELVIS ON CT SCAN WITH IV CONTRAST. Assessment and Plan - Diagnosis (1) Acute respiratory failure with hypoxia Is this a current diagnosis for this admission?: Yes (2) Pneumonia due to COVID-19 virus Is this a current diagnosis for this admission?: Yes (3) Diabetes mellitus type 2 in obese Is this a current diagnosis for this admission?: Yes (4) Tachypnea Is this a current diagnosis for this admission?: Yes (5) Metabolic acidosis Is this a current diagnosis for this admission?: Yes (6) Diarrhea Qualifiers: Diarrhea type: infectious Qualified Code(s): A09 - Infectious gastroenteritis and colitis, unspecified Is this a current diagnosis for this admission?: Yes (7) Liver mass Is this a current diagnosis for this admission?: Yes (8) Morbid obesity with BMI of 50.0-59.9, adult Is this a current diagnosis for this admission?: Yes - Plan Summary Summary: (1) Acute respiratory failure with hypoxia Is this a current diagnosis for this admission?: Yes Plan: Remains quite hypoxic. On HFNC 90%/60L. SpO2 on mid 90s on my encounter. No i mprovement with diuresis so it was discontinued. 07/28 Patient actually physically appears the best I've seen her so far as she is no longer tachypneic and her breathing is no longer labored. Her hypoxia however has not shown improvement as she was on HFNC 95%/60L with spo2 at 85% though she appeared very comfortable. She had to be placed back on cpap. 07/29/2020-on high flow nasal cannula this afternoon. 60 L/min. Still with very limited inspiratory phase. (2) Pneumonia due to COVID-19 virus Is this a current diagnosis for this admission?: Yes Plan: She has quite severe disease with pneumonia involving most of lung parenchyma Tested positive outpatient at [facility]. Will switch decadron to Solumedrol multivitamin and zinc supplements. Remdesivir day 5 s/p 1 dose of Ivermectin and convalescent plasma. s/p 4 doses of Ceftriaxone - dc/d Azithromycin day 5 Seems to have worsening consolidation in the lower lobes in addition to groundglass so I will place on broad antibiotic Vancomycin and cefepime and get sputum cultures. Continue Lovenox 07/28/2020 I will continue her on Solu-Medrol and will continue Vanco/cefepime. Continue Lovenox. Sputum cultures seem to have yielded inadequate sampling. 07/29/2020-now on vancomycin/cefepime. Continue Lovenox. Consider repeat chest x-ray in the next day or so. Ongoing Solu-Medrol as well. Steroids are wreaking havoc with her sugars. (3) Diabetes mellitus type 2 in obese Is this a current diagnosis for this admission?: Yes Plan: Her hyperglycemia has been really hard to control since initiating steroids. Continue home dose of glimepiride. She does not use insulin at home and her A1c is 7.9 so hyperglycemia is mostly from steroids. I put her on Lantus and I have had to increase the dose every day. I have started premeal lispro today. I will change her Solu-Medrol from every 8 hours to every 12 hours but I will still like her to remain on steroids as she would likely benefit from this highly. 07/29/2020-if increase Lantus. She did get her Trulicity yesterday. I explained that while she is on steroids we will likely be chasing her [id number] Accu-Cheks and things should settle down as she comes off of the steroids. Increased activity will help as well. (4) Tachypnea Is this a current diagnosis for this admission?: Yes Plan: Metabolic acidosis has resolved. Still tachypneic due to hypoxia from pne umonia. Also gets very anxious. Try small doses of Ativan and morphine. We will have to be careful given her respiratory issues. So far she has shown no evidence of CO2 retention and actually is hyperventilating. 07/28/2020 Seems to be resolved today. Will monitor. 07/29/2020-still with intermittent tachypnea. Currently resting comfortably. (5) Metabolic acidosis Is this a current diagnosis for this admission?: Yes Plan: Secondary to diarrhea. Improved pretty much resolving 07/29/2020-still with diarrhea. We will recheck serum chemistries tomorrow. Acidosis likely resolved. (6) Diarrhea Qualifiers: Diarrhea type: infectious Qualified Code(s): A09 - Infectious gastroenteritis and colitis, unspecified Is this a current diagnosis for this admission?: Yes Plan: Likely secondary to COVID-19. C. difficile test is negative. Continue Imodium prn. Improved remarkably. Discontinue LR fluids. 07/29/2020-added probiotics to her regimen. (7) Liver mass Is this a current diagnosis for this admission?: Yes Plan: Abdominal CT shows no evidence of the liver mass noted on chest CTA. Ruled out. No further investigations. (8) Morbid obesity with BMI of 50.0-59.9, adult Is this a current diagnosis for this admission?: Yes Plan: BMI of 54.5. This puts her at significantly increased risk of a complicated COVID-19 course of infection. 07/29/2020-unfortunately the steroids may only have her gain some weight transiently. Once fully recovered from the infection she should consider aggressive diet management and initiating an exercise program. 07/30/2020 Respiratory failure secondary to Covid pneumonia-did not require CPAP last night. Hopefully can remain on high flow nasal cannula with gradual taper. Continue steroids. I do not believe there is a necessity for IV antibiotics at this time. Her white count has never been significantly elevated and the only fever she had was the day of admission at 101.0 F. Covid pneumonia-continue supportive care including steroids Diarrhea-currently resolved Hyperglycemia due to diabetes-the patient can resume her Glyxambi once family brings the medication in. We will discontinue the sitagliptin when she starts the Glyxambi. Hopefully this will help with glucose control. I still think the steroids are contributing significantly. Also consider changing to a controlled carbohydrate diet level 3. Obesity-the patient's weight is down 4 kg since admission. Continue to weigh daily. I did have a chance to speak with the patient's mother during this encounter. This conversation did bring her up-to-date regarding her daughter's progress. 12/30/2019 Respiratory failure-we are finally starting to make some progress. The patient is down to 45 L/min on her high flow nasal cannula. We will continue to taper the oxygen. No change in steroids yet. No longer requiring IV antibiotics. Hyperglycemia-by starting the Glyxambi from home her last 2 Accu-Cheks were less than 200. I told her that we would monitor the Accu-Cheks and start adjusting the insulin dosing. We will be combination of adjusting the mealtime dose and Lantus. The sliding scale will remain unchanged. Morbid obesity-continue daily weights. The patient will likely lose several more kilograms prior to discharge. Recheck labs tomorrow 08/01/2020 Covid pneumonia with respiratory failure-high flow nasal cannula is down to 30 L/min I believe. She states that she still gets short of breath when she gets up to the commode but it is not as bad as it used to be and she recovers more quickly. She is still receiving intravenous steroids. She continues with the supplements as well. Hopefully she is beginning to turn the corner and I explained to her that our next goal will be nasal cannula. Hyperglycemia from diabetes-on the Glyxambi her Accu-Cheks are closer to 200 (190-210). I explained that as soon as I can begin to taper the steroids this should improve as well. She continues on diabetic diet. Morbid obesity-unfortunately it is a very significant risk factor with Covid infections. With her prolonged hospitalization she has lost some weight. Continue to monitor daily weights. Elevated D-dimer-her D-dimer was up to 6.91 despite ongoing therapy. I did recheck it today and is down to 2.64 which is excellent. Ferritin alkaline phosphatase are still elevated. Continue current treatment plan and monitor closely. The patient is certainly disappointed when I told her that she is likely going to be here through most of next week. I told her that it is possible to discharge home on oxygen therapy however she needs to be on a very low flow compared to what she is receiving now. - Time Time Spent with patient: 15-24 minutes Medications reviewed and adjusted accordingly: Yes Anticipated Discharge Disposition: Home with Home Health Anticipated Discharge Timeframe: Unknown
[2020-08-01] MEDS: PRAMIPEXOLE DI-HCL 0.5 MG TABLET PO SCH (17:01)
[2020-08-02] MEDS: ALBUTEROL SULFATE HFA (90 MCG/PUFF) 8 GM MDI IH SCH ×4 (00:45→19:07)
[2020-08-02 05:31] LABS: HEMATOCRIT 38.6 % (36.0-47.0); HEMOGLOBIN 13.3 g/dL (12.0-15.5); MEAN CORPUSCULAR HEMOGLOBIN 28.3 pg (27.0-33.4); MEAN CORPUSCULAR HGB CONC 34.4 g/dL (32.0-36.0); MEAN CORPUSCULAR VOLUME 82 fl (80-97); PLATELET COUNT 242 10^3/uL (150-450); RED CELL DISTRIBUTION WIDTH 14.8 % (11.5-14.0); WHITE BLOOD COUNT 11.4 10^3/uL (4.0-10.5)
[2020-08-02 05:57] LABS: BLOOD UREA NITROGEN 27 mg/dL (7-20); C-REACTIVE PROTEIN 16.4 mg/L (<10.0); GLUCOSE 182 mg/dL (75-110); POTASSIUM 4.7 mmol/L (3.6-5.0)
[2020-08-02 06:01] LABS: CARBON DIOXIDE 22 mmol/L (22-30); CHLORIDE 103 mmol/L (98-107)
[2020-08-02 06:08] LABS: ANION GAP 8 (5-19)
[2020-08-02] MEDS: METHYLPREDNISOLONE INJ 40 MG/1 ML SDV IV SCH ×2 (10:30→21:27)
[2020-08-02] MEDS: INSULIN LISPRO 100 UNIT/ML 3 ML VIAL SUBCUT SCH ×7 (10:31→21:29)
[2020-08-02] MEDS: ENOXAPARIN SODIUM INJ 120 MG/0.8 ML DISP.SYRIN SUBCUT SCH ×2 (10:33→21:30)
[2020-08-02] MEDS: ASCORBIC ACID 500 MG TABLET PO SCH ×2 (10:33→19:06)
[2020-08-02] MEDS: ZINC SULFATE 220 MG CAPSULE PO SCH (10:33)
[2020-08-02] MEDS: LACTOBACILLUS ACIDOPHILUS 250 MG TAB PO SCH ×2 (10:33→19:06)
[2020-08-02] MEDS: GLIMEPIRIDE 4 MG TABLET PO SCH (10:33)
[2020-08-02] MEDS: CHOLECALCIFEROL (D3) 1,000 UNIT (25 MCG) TABLET PO SCH (10:34)
[2020-08-02] MEDS: LISINOPRIL 10 MG TABLET PO SCH (10:34)
[2020-08-02] MEDS: FAMOTIDINE 20 MG TABLET PO SCH ×2 (10:34→21:30)
--- NOTE | 2020-08-02 10:57 | PDOC PROGRESS REPORT ---
Subjective Date:: 08/02/20 Subjective:: Patient again is resting in the chair. She is somewhat frustrated as there has been little interaction with nursing. I explained that there were several emergencies at the same time and if she could just be patient it would be great. She was very understanding. She has no new complaints. We did discuss again the strategy to continue to wean her oxygen supplement to get her home as soon as we could. Reason For Visit: COVID PNA,HYPOXIA Physical Exam Vital Signs: Temp Pulse Resp BP Pulse Ox 98.5 F 75 19 146/68 H 98 08/02/20 07:24 08/02/20 07:24 08/02/20 07:24 08/02/20 07:24 08/02/20 07:24 Intake & Output 08/01/20 08/02/20 08/03/20 06:59 06:59 06:59 Intake Total 872 1137 Balance 872 1137 Weight 144.8 kg 141.5 kg 141.5 kg General appearance: PRESENT: cooperative, mild distress, morbidly obese, well-developed, well-nourished Head exam: PRESENT: atraumatic, normocephalic Ear exam: PRESENT: normal external ear exam. ABSENT: bleeding, drainage Mouth exam: PRESENT: moist, tongue midline Neck exam: ABSENT: carotid bruit, JVD, lymphadenopathy, tracheostomy Respiratory exam: PRESENT: clear to auscultation tayla, symmetrical, unlabored. ABSENT: accessory muscle use, rales, rhonchi, tachypnea, wheezes Cardiovascular exam: PRESENT: RRR, +S1, +S2. ABSENT: bradycardia, diastolic murmur, irregular rhythm, systolic murmur GI/Abdominal exam: PRESENT: normal bowel sounds, soft, other - Protuberant abdomen. ABSENT: tenderness Rectal exam: PRESENT: deferred Gentrourinary exam: ABSENT: indwelling catheter Neurological exam: PRESENT: alert, awake, oriented to person, oriented to place, oriented to time, oriented to situation, CN II-XII grossly intact. ABSENT: altered Psychiatric exam: PRESENT: appropriate affect. ABSENT: agitated, anxious Focused psych exam: ABSENT: delusional, paranoid, restlessness Skin exam: PRESENT: dry, normal color, warm. ABSENT: rash Results Laboratory Results: 08/02/20 05:20 08/02/20 05:20 08/02/20 08/02/20 05:20 05:20 WBC 11.4 H RBC 4.70 Hgb 13.3 Hct 38.6 MCV 82 MCH 28.3 MCHC 34.4 RDW 14.8 H Plt Count 242 Sodium 133.3 L Potassium 4.7 Chloride 103 Carbon Dioxide 22 Anion Gap 8 BUN 27 H Creatinine 0.47 L Est GFR ( Amer) > 60 Glucose 182 H Calcium 9.0 Ferritin 379.00 H C-Reactive Protein 16.4 H 07/23/20 07/24/20 07/25/20 14:34 05:12 04:58 Creatine Kinase 424 H 145 H Troponin I < 0.012 NT-Pro-B Natriuret Pep 56 07/26/20 07/27/20 07/28/20 04:08 05:23 04:49 Creatine Kinase 41 22 L 38 Troponin I NT-Pro-B Natriuret Pep 07/29/20 04:53 Creatine Kinase 26 L Troponin I NT-Pro-B Natriuret Pep Impressions: Chest X-Ray 07/23/20 14:11 IMPRESSION: Low inspiratory lung volumes and diffuse patchy bilateral parenchymal opacities. Differential considerations include a multifocal pneumonia (including COVID-19), ARDS and pulmonary edema. Chest/Abdomen CTA 07/23/20 15:00 IMPRESSION: Extensive parenchymal opacities throughout the lungs typical of covid 19. No pulmonary emboli. Questionable liver mass. Evaluate when patient is stable. Abdomen/Pelvis CT 07/25/20 13:45 IMPRESSION: 1. BILATERAL PELVIC ADNEXAL CYSTS, MEASURING 4.5 CM AND 8 CM. PRESUMABLY OVARIAN. WOULD CONSIDER FOLLOW-UP PELVIC ULTRASOUND WHEN ABLE. 2. SMALL CORTICAL CYST IN THE RIGHT KIDNEY. 3. NO LIVER MASS. 4. EXTENSIVE GROUND-GLASS INFILTRATES IN THE LOWER LOBES CONSISTENT WITH COVID- 19. 5. NO OTHER SIGNIFICANT OR ACUTE FINDING IN THE ABDOMEN OR PELVIS ON CT SCAN WITH IV CONTRAST. Assessment and Plan - Diagnosis (1) Acute respiratory failure with hypoxia Is this a current diagnosis for this admission?: Yes (2) Pneumonia due to COVID-19 virus Is this a current diagnosis for this admission?: Yes (3) Diabetes mellitus type 2 in obese Is this a current diagnosis for this admission?: Yes (4) Tachypnea Is this a current diagnosis for this admission?: Yes (5) Metabolic acidosis Is this a current diagnosis for this admission?: Yes (6) Diarrhea Qualifiers: Diarrhea type: infectious Qualified Code(s): A09 - Infectious gastroenteri tis and colitis, unspecified Is this a current diagnosis for this admission?: Yes (7) Liver mass Is this a current diagnosis for this admission?: Yes (8) Morbid obesity with BMI of 50.0-59.9, adult Is this a current diagnosis for this admission?: Yes - Plan Summary Summary: (1) Acute respiratory failure with hypoxia Is this a current diagnosis for this admission?: Yes Plan: Remains quite hypoxic. On HFNC 90%/60L. SpO2 on mid 90s on my encounter. No improvement with diuresis so it was discontinued. 07/28 Patient actually physically appears the best I've seen her so far as she is no longer tachypneic and her breathing is no longer labored. Her hypoxia however has not shown improvement as she was on HFNC 95%/60L with spo2 at 85% though she appeared very comfortable. She had to be placed back on cpap. 07/29/2020-on high flow nasal cannula this afternoon. 60 L/min. Still with very limited inspiratory phase. (2) Pneumonia due to COVID-19 virus Is this a current diagnosis for this admission?: Yes Plan: She has quite severe disease with pneumonia involving most of lung parenchyma Tested positive outpatient at [facility]. Will switch decadron to Solumedrol multivitamin and zinc supplements. Remdesivir day 5 s/p 1 dose of Ivermectin and convalescent plasma. s/p 4 doses of Ceftriaxone - dc/d Azithromycin day 5 Seems to have worsening consolidation in the lower lobes in addition to groundglass so I will place on broad antibiotic Vancomycin and cefepime and get sputum cultures. Continue Lovenox 07/28/2020 I will continue her on Solu-Medrol and will continue Vanco/cefepime. Continue Lovenox. Sputum cultures seem to have yielded inadequate sampling. 07/29/2020-now on vancomycin/cefepime. Continue Lovenox. Consider repeat chest x-ray in the next day or so. Ongoing Solu-Medrol as well. Steroids are wreaking havoc with her sugars. (3) Diabetes mellitus type 2 in obese Is this a current diagnosis for this admission?: Yes Plan: Her hyperglycemia has been really hard to control since initiating steroids. Continue home dose of glimepiride. She does not use insulin at home and her A1c is 7.9 so hyperglycemia is mostly from steroids. I put her on Lantus and I have had to increase the dose every day. I have started premeal lispro today. I will change her Solu-Medrol from every 8 hours to every 12 hours but I will s till like her to remain on steroids as she would likely benefit from this highly. 07/29/2020-if increase Lantus. She did get her Trulicity yesterday. I explained that while she is on steroids we will likely be chasing her [id number] Accu-Cheks and things should settle down as she comes off of the steroids. Increased activity will help as well. (4) Tachypnea Is this a current diagnosis for this admission?: Yes Plan: Metabolic acidosis has resolved. Still tachypneic due to hypoxia from pneumonia. Also gets very anxious. Try small doses of Ativan and morphine. We will have to be careful given her respiratory issues. So far she has shown no evidence of CO2 retention and actually is hyperventilating. 07/28/2020 Seems to be resolved today. Will monitor. 07/29/2020-still with intermittent tachypnea. Currently resting comfortably. (5) Metabolic acidosis Is this a current diagnosis for this admission?: Yes Plan: Secondary to diarrhea. Improved pretty much resolving 07/29/2020-still with diarrhea. We will recheck serum chemistries tomorrow. Acidosis likely resolved. (6) Diarrhea Qualifiers: Diarrhea type: infectious Qualified Code(s): A09 - Infectious gastroenteritis and colitis, unspecified Is this a current diagnosis for this admission?: Yes Plan: Likely secondary to COVID-19. C. difficile test is negative. Continue Imodium prn. Improved remarkably. Discontinue LR fluids. 07/29/2020-added probiotics to her regimen. (7) Liver mass Is this a current diagnosis for this admission?: Yes Plan: Abdominal CT shows no evidence of the liver mass noted on chest CTA. Ruled out. No further investigations. (8) Morbid obesity with BMI of 50.0-59.9, adult Is this a current diagnosis for this admission?: Yes Plan: BMI of 54.5. This puts her at significantly increased risk of a complicated COVID-19 course of infection. 07/29/2020-unfortunately the steroids may only have her gain some weight transiently. Once fully recovered from the infection she should consider aggressive diet management and initiating an exercise program. 07/30/2020 Respiratory failure secondary to Covid pneumonia-did not require CPAP last night. Hopefully can remain on high flow nasal cannula with gradual taper. Continue steroids. I do not believe there is a necessity for IV antibiotics at this time. Her white count has never been significantly elevated and the only fever she had was the day of admission at 101.0 F. Covid pneumonia-continue supportive care including steroids Diarrhea-currently resolved Hyperglycemia due to diabetes-the patient can resume her Glyxambi once family brings the medication in. We will discontinue the sitagliptin when she starts the Glyxambi. Hopefully this will help with glucose control. I still think the steroids are contributing significantly. Also consider changing to a controlled carbohydrate diet level 3. Obesity-the patient's weight is down 4 kg since admission. Continue to weigh daily. I did have a chance to speak with the patient's mother during this encounter. This conversation did bring her up-to-date regarding her daughter's progress. 12/30/2019 Respiratory failure-we are finally starting to make some progress. The patient is down to 45 L/min on her high flow nasal cannula. We will continue to taper the oxygen. No change in steroids yet. No longer requiring IV antibiotics. Hyperglycemia-by starting the Glyxambi from home her last 2 Accu-Cheks were less than 200. I told her that we would monitor the Accu-Cheks and start adjusting the insulin dosing. We will be combination of adjusting the mealtime dose and Lantus. The sliding scale will remain unchanged. Morbid obesity-continue daily weights. The patient will likely lose several more kilograms prior to discharge. Recheck labs tomorrow 08/01/2020 Covid pneumonia with respiratory failure-high flow nasal cannula is down to 30 L/min I believe. She states that she still gets short of breath when she gets up to the commode but it is not as bad as it used to be and she recovers more quickly. She is still receiving intravenous steroids. She continues with the supplements as well. Hopefully she is beginning to turn the corner and I explained to her that our next goal will be nasal cannula. Hyperglycemia from diabetes-on the Glyxambi her Accu-Cheks are closer to 200 (190-210). I explained that as soon as I can begin to taper the steroids this should improve as well. She continues on diabetic diet. Morbid obesity-unfortunately it is a very significant risk factor with Covid infections. With her prolonged hospitalization she has lost some weight. Continue to monitor daily weights. Elevated D-dimer-her D-dimer was up to 6.91 despite ongoing therapy. I did recheck it today and is down to 2.64 which is excellent. Ferritin alkaline vidya sphatase are still elevated. Continue current treatment plan and monitor closely. The patient is certainly disappointed when I told her that she is likely going to be here through most of next week. I told her that it is possible to discharge home on oxygen therapy however she needs to be on a very low flow compared to what she is receiving now. 08/02/2020 Covid pneumonia with respiratory failure-Per the vital sign record it looks like she was tried for a brief period on nasal cannula. Her high flow was down to 20 L/min. I explained that we would definitely try a small window of nasal cannula later today. We will continue her steroid supplement as it is as well as the supplements typically given to Covid patients. The inflammatory markers continue to slowly improve including her ferritin and C-reactive protein. Hyperglycemia-glucose was 182 this morning and we are getting more consistently below 200. I may make a change in her Lantus once again based on her Accu-Cheks and sliding scale requirements. Morbid obesity-definitely a significantly increased risk factor with Covid in fection. Expect further weight loss depending on how long she is in the hospital. She is consistently using the incentive spirometer. She now tracks her progress with the sliding arrow. She states that she has consistently been in the 500 range. I told her her next goal would be 750 and eventually 1 L but this will take some time. Encouraged her to continue her diligent efforts with the smith meter. - Time Time Spent with patient: 15-24 minutes Medications reviewed and adjusted accordingly: Yes Anticipated Discharge Disposition: Home with Home Health Anticipated Discharge Timeframe: Unknown
[2020-08-02] MEDS: EMPAGLIFLOZIN PO SCH (11:15)
[2020-08-02] MEDS: LINAGLIPTIN PO SCH (11:15)
[2020-08-02] MEDS: INSULIN GLARGINE,HUM.REC.ANLOG 1,000 UNIT/10 ML VIAL SUBCUT SCH ×2 (11:16→21:30)
[2020-08-02] MEDS: PRAMIPEXOLE DI-HCL 0.5 MG TABLET PO SCH (19:06)
[2020-08-03] MEDS: ALBUTEROL SULFATE HFA (90 MCG/PUFF) 8 GM MDI IH SCH ×4 (00:20→18:36)
[2020-08-03] MEDS: INSULIN LISPRO 100 UNIT/ML 3 ML VIAL SUBCUT SCH ×7 (08:49→21:38)
[2020-08-03] MEDS: EMPAGLIFLOZIN PO SCH (08:51)
[2020-08-03] MEDS: LINAGLIPTIN PO SCH (08:51)
[2020-08-03] MEDS: METHYLPREDNISOLONE INJ 40 MG/1 ML SDV IV SCH ×2 (11:32→21:39)
[2020-08-03] MEDS: LACTOBACILLUS ACIDOPHILUS 250 MG TAB PO SCH ×2 (11:32→18:35)
[2020-08-03] MEDS: CHOLECALCIFEROL (D3) 1,000 UNIT (25 MCG) TABLET PO SCH (11:32)
[2020-08-03] MEDS: LISINOPRIL 10 MG TABLET PO SCH (11:33)
[2020-08-03] MEDS: ASCORBIC ACID 500 MG TABLET PO SCH ×2 (11:33→18:34)
[2020-08-03] MEDS: GLIMEPIRIDE 4 MG TABLET PO SCH (11:33)
[2020-08-03] MEDS: FAMOTIDINE 20 MG TABLET PO SCH ×2 (11:33→21:39)
[2020-08-03] MEDS: ZINC SULFATE 220 MG CAPSULE PO SCH (11:33)
[2020-08-03] MEDS: ENOXAPARIN SODIUM INJ 120 MG/0.8 ML DISP.SYRIN SUBCUT SCH ×2 (11:34→21:42)
[2020-08-03] MEDS: INSULIN GLARGINE,HUM.REC.ANLOG 1,000 UNIT/10 ML VIAL SUBCUT SCH ×2 (11:35→21:37)
[2020-08-03] MEDS: PRAMIPEXOLE DI-HCL 0.5 MG TABLET PO SCH (18:35)
--- NOTE | 2020-08-03 22:17 | PDOC PROGRESS REPORT ---
Subjective Date:: 08/03/20 Subjective:: Patient is sitting in the chair. She is down to 10 L on high flow nasal cannula . We will next trial nasal cannula. She is clearly getting more frustrated and informed me that I need to have her ready for discharge by midweek. Reason For Visit: COVID PNA,HYPOXIA Physical Exam Vital Signs: Temp Pulse Resp BP Pulse Ox 98.0 F 74 16 115/63 93 08/03/20 20:12 08/03/20 20:12 08/03/20 20:12 08/03/20 20:12 08/03/20 20:12 Intake & Output 08/02/20 08/03/20 08/04/20 06:59 06:59 06:59 Intake Total 1137 562 562 Output Total 1000 600 Balance 1137 -438 -38 Weight 141.5 kg 141.5 kg General appearance: PRESENT: cooperative, mild distress, morbidly obese, well- developed Head exam: PRESENT: atraumatic, normocephalic Respiratory exam: PRESENT: symmetrical, tachypnea, unlabored, other - Still with limited inspiratory phase. ABSENT: rales, rhonchi, wheezes Cardiovascular exam: PRESENT: RRR, +S1, +S2 GI/Abdominal exam: PRESENT: normal bowel sounds, soft, other - Protuberant abdomen. ABSENT: tenderness Rectal exam: PRESENT: deferred Gentrourinary exam: ABSENT: indwelling catheter Musculoskeletal exam: PRESENT: ambulatory, normal inspection. ABSENT: deformity, dislocation Neurological exam: PRESENT: alert, awake, oriented to person, oriented to place, oriented to time, oriented to situation. ABSENT: altered Psychiatric exam: PRESENT: appropriate affect. ABSENT: agitated, anxious Focused psych exam: ABSENT: delusional, paranoid, restlessness Results Laboratory Results: 08/02/20 05:20 08/02/20 05:20 07/23/20 07/24/20 07/25/20 14:34 05:12 04:58 Creatine Kinase 424 H 145 H Troponin I < 0.012 NT-Pro-B Natriuret Pep 56 07/26/20 07/27/20 07/28/20 04:08 05:23 04:49 Creatine Kinase 41 22 L 38 Troponin I NT-Pro-B Natriuret Pep 07/29/20 04:53 Creatine Kinase 26 L Troponin I NT-Pro-B Natriuret Pep Impressions: Chest X-Ray 07/23/20 14:11 IMPRESSION: Low inspiratory lung volumes and diffuse patchy bilateral parenchymal opacities. Differential considerations include a multifocal pneumonia (including COVID-19), ARDS and pulmonary edema. Chest/Abdomen CTA 07/23/20 15:00 IMPRESSION: Extensive parenchymal opacities throughout the lungs typical of covid 19. No pulmonary emboli. Questionable liver mass. Evaluate when patient is stable. Abdomen/Pelvis CT 07/25/20 13:45 IMPRESSION: 1. BILATERAL PELVIC ADNEXAL CYSTS, MEASURING 4.5 CM AND 8 CM. PRESUMABLY OVARIAN. WOULD CONSIDER FOLLOW-UP PELVIC ULTRASOUND WHEN ABLE. 2. SMALL CORTICAL CYST IN THE RIGHT KIDNEY. 3. NO LIVER MASS. 4. EXTENSIVE GROUND-GLASS INFILTRATES IN THE LOWER LOBES CONSISTENT WITH COVID- 19. 5. NO OTHER SIGNIFICANT OR ACUTE FINDING IN THE ABDOMEN OR PELVIS ON CT SCAN WITH IV CONTRAST. Assessment and Plan - Diagnosis (1) Acute respiratory failure with hypoxia Is this a current diagnosis for this admission?: Yes (2) Pneumonia due to COVID-19 virus Is this a current diagnosis for this admission?: Yes (3) Diabetes mellitus type 2 in obese Is this a current diagnosis for this admission?: Yes (4) Tachypnea Is this a current diagnosis for this admission?: Yes (5) Metabolic acidosis Is this a current diagnosis for this admission?: Yes (6) Diarrhea Qualifiers: Diarrhea type: infectious Qualified Code(s): A09 - Infectious gastroenteritis and colitis, unspecified Is this a current diagnosis for this admission?: Yes (7) Liver mass Is this a current diagnosis for this admission?: Yes (8) Morbid obesity with BMI of 50.0-59.9, adult Is this a current diagnosis for this admission?: Yes - Plan Summary Summary: (1) Acute respiratory failure with hypoxia Is this a current diagnosis for this admission?: Yes Plan: Remains quite hypoxic. On HFNC 90%/60L. SpO2 on mid 90s on my encounter. No improvement with diuresis so it was discontinued. 07/28 Patient actually physically appears the best I've seen her so far as she is no longer tachypneic and her breathing is no longer labored. Her hypoxia however has not shown improvement as she was on HFNC 95%/60L with spo2 at 85% though she appeared very comfortable. She had to be placed back on cpap. 07/29/2020-on high flow nasal cannula this afternoon. 60 L/min. Still with very limited inspiratory phase. (2) Pneumonia due to COVID-19 virus Is this a current diagnosis for this admission?: Yes Plan: She has quite severe disease with pneumonia involving most of lung parenchyma Tested positive outpatient at [facility]. Will switch decadron to Solumedrol multivitamin and zinc supplements. Remdesivir day 5 s/p 1 dose of Ivermectin and convalescent plasma. s/p 4 doses of Ceftriaxone - dc/d Azithromycin day 5 Seems to have worsening consolidation in the lower lobes in addition to groundglass so I will place on broad antibiotic Vancomycin and cefepime and get sputum cultures. Continue Lovenox 07/28/2020 I will continue her on Solu-Medrol and will continue Vanco/cefepime. Continue Lovenox. Sputum cultures seem to have yielded inadequate sampling. 07/29/2020-now on vancomycin/cefepime. Continue Lovenox. Consider repeat chest x-ray in the next day or so. Ongoing Solu-Medrol as well. Steroids are wreaking havoc with her sugars. (3) Diabetes mellitus type 2 in obese Is this a current diagnosis for this admission?: Yes Plan: Her hyperglycemia has been really hard to control since initiating steroids. Continue home dose of glimepiride. She does not use insulin at home and her A1c is 7.9 so hyperglycemia is mostly from steroids. I put her on Lantus and I have had to increase the dose every day. I have started premeal lispro today. I will change her Solu-Medrol from every 8 hours to every 12 hours but I will still like her to remain on steroids as she would likely benefit from this highly. 07/29/2020-if increase Lantus. She did get her Trulicity yesterday. I explained that while she is on steroids we will likely be chasing her [id number] Accu-Cheks and things should settle down as she comes off of the steroids. Increased activity will help as well. (4) Tachypnea Is this a current diagnosis for this admission?: Yes Plan: Metabolic acidosis has resolved. Still tachypneic due to hypoxia from pneumonia. Also gets very anxious. Try small doses of Ativan and morphine. We will have to be careful given her respiratory issues. So far she has shown no evidence of CO2 retention and actually is hyperventilating. 07/28/2020 Seems to be resolved today. Will monitor. 07/29/2020-still with intermittent tachypnea. Currently resting comfortably. (5) Metabolic acidosis Is this a current diagnosis for this admission?: Yes Plan: Secondary to diarrhea. Improved pretty much resolving 07/29/2020-still with diarrhea. We will recheck serum chemistries tomorrow. Acidosis likely resolved. (6) Diarrhea Qualifiers: Diarrhea type: infectious Qualified Code(s): A09 - Infectious gastroenteritis and colitis, unspecified Is this a current diagnosis for this admission?: Yes Plan: Likely secondary to COVID-19. C. difficile test is negative. Continue Imodium prn. Improved remarkably. Discontinue LR fluids. 07/29/2020-added probiotics to her regimen. (7) Liver mass Is this a current diagnosis for this admission?: Yes Plan: Abdominal CT shows no evidence of the liver mass noted on chest CTA. Ruled out. No further investigations. (8) Morbid obesity with BMI of 50.0-59.9, adult Is this a current diagnosis for this admission?: Yes Plan: BMI of 54.5. This puts her at significantly increased risk of a complicated COVID-19 course of infection. 07/29/2020-unfortunately the steroids may only have her gain some weight transiently. Once fully recovered from the infection she should consider aggressive diet management and initiating an exercise program. 07/30/2020 Respiratory failure secondary to Covid pneumonia-did not require CPAP last night. Hopefully can remain on high flow nasal cannula with gradual taper. Continue steroids. I do not believe there is a necessity for IV antibiotics at this time. Her white count has never been significantly elevated and the only fever she had was the day of admission at 101.0 F. Covid pneumonia-continue supportive care including steroids Diarrhea-currently resolved Hyperglycemia due to diabetes-the patient can resume her Glyxambi once family brings the medication in. We will discontinue the sitagliptin when she starts the Glyxambi. Hopefully this will help with glucose control. I still think the steroids are contributing significantly. Also consider changing to a controlled carbohydrate diet level 3. Obesity-the patient's weight is down 4 kg since admission. Continue to weigh daily. I did have a chance to speak with the patient's mother during this encounter. This conversation did bring her up-to-date regarding her daughter's progress. 12/30/2019 Respiratory failure-we are finally starting to make some progress. The patient is down to 45 L/min on her high flow nasal cannula. We will continue to taper the oxygen. No change in steroids yet. No longer requiring IV antibiotics. Hyperglycemia-by starting the Glyxambi from home her last 2 Accu-Cheks were less than 200. I told her that we would monitor the Accu-Cheks and start adjusting the insulin dosing. We will be combination of adjusting the mealtime dose and Lantus. The sliding scale will remain unchanged. Morbid obesity-continue daily weights. The patient will likely lose several more kilograms prior to discharge. Recheck labs tomorrow 08/01/2020 Covid pneumonia with respiratory failure-high flow nasal cannula is down to 30 L/min I believe. She states that she still gets short of breath when she gets up to the commode but it is not as bad as it used to be and she recovers more quickly. She is still receiving intravenous steroids. She continues with the supplements as well. Hopefully she is beginning to turn the corner and I explained to her that our next goal will be nasal cannula. Hyperglycemia from diabetes-on the Glyxambi her Accu-Cheks are closer to 200 (190-210). I explained that as soon as I can begin to taper the steroids this should improve as well. She continues on diabetic diet. Morbid obesity-unfortunately it is a very significant risk factor with Covid i nfections. With her prolonged hospitalization she has lost some weight. Continue to monitor daily weights. Elevated D-dimer-her D-dimer was up to 6.91 despite ongoing therapy. I did recheck it today and is down to 2.64 which is excellent. Ferritin alkaline phosphatase are still elevated. Continue current treatment plan and monitor closely. The patient is certainly disappointed when I told her that she is likely going to be here through most of next week. I told her that it is possible to discharge home on oxygen therapy however she needs to be on a very low flow compared to what she is receiving now. 08/02/2020 Covid pneumonia with respiratory failure-Per the vital sign record it looks like she was tried for a brief period on nasal cannula. Her high flow was down to 20 L/min. I explained that we would definitely try a small window of nasal cannula later today. We will continue her steroid supplement as it is as well as the supplements typically given to Covid patients. The inflammatory markers continue to slowly improve including her ferritin and C-reactive protein. Hyperglycemia-glucose was 182 this morning and we are getting more consistently below 200. I may make a change in her Lantus once again based on her Accu-Cheks and sliding scale requirements. Morbid obesity-definitely a significantly increased risk factor with Covid infection. Expect further weight loss depending on how long she is in the hospital. She is consistently using the incentive spirometer. She now tracks her progress with the sliding arrow. She states that she has consistently been in the 500 range. I told her her next goal would be 750 and eventually 1 L but this will take some time. Encouraged her to continue her diligent efforts with the spirometer. 08/03/2020 Hypoxic respiratory failure from Covid pneumonia-patient is down to 10 L on high flow nasal cannula. I told her the next step would be nasal cannula possibly with Oxymizer. She now admits to significant impatience and wants to go home as soon as possible. She actually told me my deadline to discharge her was . I told her that I would not discharge her until I feel she is medically appropriate. Inflammatory markers continue to improve. Morbid obesity-no change in treatment plan [id number] are improved. She is back on her Glyxambi. She also states that her mother droped off her Trulicity which she takes weekly. Unless that she be allowed to administer this dose. - Time Time Spent with patient: Less than 15 minutes Medications reviewed and adjusted accordingly: Yes Anticipated Discharge Disposition: Home with Home Health Anticipated Discharge Timeframe: 4-5 days
[2020-08-04] MEDS: ALBUTEROL SULFATE HFA (90 MCG/PUFF) 8 GM MDI IH SCH ×4 (00:10→17:23)
[2020-08-04] MEDS ORDERED: PHARMACY COMMUNICATION ORDER MC NR (09:00)
[2020-08-04] MEDS: INSULIN LISPRO 100 UNIT/ML 3 ML VIAL SUBCUT SCH ×7 (09:09→22:04)
[2020-08-04] MEDS: INSULIN GLARGINE,HUM.REC.ANLOG 1,000 UNIT/10 ML VIAL SUBCUT SCH ×2 (11:04→22:06)
[2020-08-04] MEDS: LINAGLIPTIN PO SCH (11:04)
[2020-08-04] MEDS: EMPAGLIFLOZIN PO SCH (11:04)
[2020-08-04] MEDS: FAMOTIDINE 20 MG TABLET PO SCH ×2 (11:06→22:02)
[2020-08-04] MEDS: LISINOPRIL 10 MG TABLET PO SCH (11:06)
[2020-08-04] MEDS: ASCORBIC ACID 500 MG TABLET PO SCH ×2 (11:06→17:24)
[2020-08-04] MEDS: METHYLPREDNISOLONE INJ 40 MG/1 ML SDV IV SCH ×2 (11:07→22:05)
[2020-08-04] MEDS: CHOLECALCIFEROL (D3) 1,000 UNIT (25 MCG) TABLET PO SCH (11:07)
[2020-08-04] MEDS: LACTOBACILLUS ACIDOPHILUS 250 MG TAB PO SCH ×2 (11:07→17:22)
[2020-08-04] MEDS: ZINC SULFATE 220 MG CAPSULE PO SCH (11:07)
[2020-08-04] MEDS: GLIMEPIRIDE 4 MG TABLET PO SCH (11:08)
[2020-08-04] MEDS: ENOXAPARIN SODIUM INJ 120 MG/0.8 ML DISP.SYRIN SUBCUT SCH ×2 (11:09→22:02)
--- NOTE | 2020-08-04 11:15 | PDOC PROGRESS REPORT ---
Subjective Date:: 08/04/20 Subjective:: Patient is sitting up in a chair resting comfortably. Reason For Visit: COVID PNA,HYPOXIA Physical Exam Vital Signs: Temp Pulse Resp BP Pulse Ox 97.9 F 84 24 H 140/71 H 92 08/04/20 09:03 08/04/20 07:46 08/04/20 07:46 08/04/20 07:46 08/04/20 07:46 Intake & Output 08/03/20 08/04/20 08/05/20 06:59 06:59 06:59 Intake Total 562 1062 Output Total 1000 1400 Balance -438 -338 Weight 141.5 kg 137.8 kg General appearance: PRESENT: cooperative, mild distress, well-developed Head exam: PRESENT: atraumatic, normocephalic Ear exam: PRESENT: normal external ear exam. ABSENT: bleeding, drainage Respiratory exam: PRESENT: clear to auscultation tayla, symmetrical, unlabored. ABSENT: rales, rhonchi, tachypnea, wheezes Cardiovascular exam: PRESENT: RRR, +S1, +S2. ABSENT: bradycardia, diastolic murmur, irregular rhythm, systolic murmur GI/Abdominal exam: PRESENT: normal bowel sounds, soft, other - Protuberant abdomen. ABSENT: tenderness Rectal exam: PRESENT: deferred Gentrourinary exam: ABSENT: indwelling catheter Musculoskeletal exam: PRESENT: ambulatory, normal inspection. ABSENT: deformity, dislocation Neurological exam: PRESENT: alert, awake, oriented to person, oriented to place, oriented to time, oriented to situation, CN II-XII grossly intact. ABSENT: altered Psychiatric exam: PRESENT: appropriate affect - Affect reflects her clinical state. ABSENT: agitated, anxious Focused psych exam: ABSENT: delusional, paranoid, restlessness Results Laboratory Results: 08/02/20 05:20 08/02/20 05:20 07/23/20 07/24/20 07/25/20 14:34 05:12 04:58 Creatine Kinase 424 H 145 H Troponin I < 0.012 NT-Pro-B Natriuret Pep 56 07/26/20 07/27/20 07/28/20 04:08 05:23 04:49 Creatine Kinase 41 22 L 38 Troponin I NT-Pro-B Natriuret Pep 07/29/20 04:53 Creatine Kinase 26 L Troponin I NT-Pro-B Natriuret Pep Impressions: Chest X-Ray 07/23/20 14:11 IMPRESSION: Low inspiratory lung volumes and diffuse patchy bilateral pare nchymal opacities. Differential considerations include a multifocal pneumonia (including COVID-19), ARDS and pulmonary edema. Chest/Abdomen CTA 07/23/20 15:00 IMPRESSION: Extensive parenchymal opacities throughout the lungs typical of covid 19. No pulmonary emboli. Questionable liver mass. Evaluate when patient is stable. Abdomen/Pelvis CT 07/25/20 13:45 IMPRESSION: 1. BILATERAL PELVIC ADNEXAL CYSTS, MEASURING 4.5 CM AND 8 CM. PRESUMABLY OVARIAN. WOULD CONSIDER FOLLOW-UP PELVIC ULTRASOUND WHEN ABLE. 2. SMALL CORTICAL CYST IN THE RIGHT KIDNEY. 3. NO LIVER MASS. 4. EXTENSIVE GROUND-GLASS INFILTRATES IN THE LOWER LOBES CONSISTENT WITH COVID- 19. 5. NO OTHER SIGNIFICANT OR ACUTE FINDING IN THE ABDOMEN OR PELVIS ON CT SCAN WITH IV CONTRAST. Assessment and Plan - Diagnosis (1) Acute respiratory failure with hypoxia Is this a current diagnosis for this admission?: Yes (2) Pneumonia due to COVID-19 virus Is this a current diagnosis for this admission?: Yes (3) Diabetes mellitus type 2 in obese Is this a current diagnosis for this admission?: Yes (4) Tachypnea Is this a current diagnosis for this admission?: Yes (5) Metabolic acidosis Is this a current diagnosis for this admission?: Yes (6) Diarrhea Qualifiers: Diarrhea type: infectious Qualified Code(s): A09 - Infectious gastroenteritis and colitis, unspecified Is this a current diagnosis for this admission?: Yes (7) Liver mass Is this a current diagnosis for this admission?: Yes (8) Morbid obesity with BMI of 50.0-59.9, adult Is this a current diagnosis for this admission?: Yes - Plan Summary Summary: (1) Acute respiratory failure with hypoxia Is this a current diagnosis for this admission?: Yes Plan: Remains quite hypoxic. On HFNC 90%/60L. SpO2 on mid 90s on my encounter. No improvement with diuresis so it was discontinued. 07/28 Patient actually physically appears the best I've seen her so far as she is no longer tachypneic and her breathing is no longer labored. Her hypoxia however has not shown improvement as she was on HFNC 95%/60L with spo2 at 85% though she appeared very comfortable. She had to be placed back on cpap. 07/29/2020-on high flow nasal cannula this afternoon. 60 L/min. Still with very limited inspiratory phase. (2) Pneumonia due to COVID-19 virus Is this a current diagnosis for this admission?: Yes Plan: She has quite severe disease with pneumonia involving most of lung parenchyma Tested positive outpatient at [facility]. Will switch decadron to Solumedrol multivitamin and zinc supplements. Remdesivir day 5 s/p 1 dose of Ivermectin and convalescent plasma. s/p 4 doses of Ceftriaxone - dc/d Azithromycin day 5 Seems to have worsening consolidation in the lower lobes in addition to groundglass so I will place on broad antibiotic Vancomycin and cefepime and get sputum cultures. Continue Lovenox 07/28/2020 I will continue her on Solu-Medrol and will continue Vanco/cefepime. Continue Lovenox. Sputum cultures seem to have yielded inadequate sampling. 07/29/2020-now on vancomycin/cefepime. Continue Lovenox. Consider repeat chest x-ray in the next day or so. Ongoing Solu-Medrol as well. Steroids are wr eaking havoc with her sugars. (3) Diabetes mellitus type 2 in obese Is this a current diagnosis for this admission?: Yes Plan: Her hyperglycemia has been really hard to control since initiating steroids. Continue home dose of glimepiride. She does not use insulin at home and her A1c is 7.9 so hyperglycemia is mostly from steroids. I put her on Lantus and I have had to increase the dose every day. I have started premeal lispro today. I will change her Solu-Medrol from every 8 hours to every 12 hours but I will still like her to remain on steroids as she would likely benefit from this highly. 07/29/2020-if increase Lantus. She did get her Trulicity yesterday. I explained that while she is on steroids we will likely be chasing her [id number] Accu-Cheks and things should settle down as she comes off of the steroids. Increased activity will help as well. (4) Tachypnea Is this a current diagnosis for this admission?: Yes Plan: Metabolic acidosis has resolved. Still tachypneic due to hypoxia from pneumonia. Also gets very anxious. Try small doses of Ativan and morphine. We will have to be careful given her respiratory issues. So far she has shown no evidence of CO2 retention and actually is hyperventilating. 07/28/2020 Seems to be resolved today. Will monitor. 07/29/2020-still with intermittent tachypnea. Currently resting comfortably. (5) Metabolic acidosis Is this a current diagnosis for this admission?: Yes Plan: Secondary to diarrhea. Improved pretty much resolving 07/29/2020-still with diarrhea. We will recheck serum chemistries tomorrow. Acidosis likely resolved. (6) Diarrhea Qualifiers: Diarrhea type: infectious Qualified Code(s): A09 - Infectious gastroenteritis and colitis, unspecified Is this a current diagnosis for this admission?: Yes Plan: Likely secondary to COVID-19. C. difficile test is negative. Continue Imodium prn. Improved remarkably. Discontinue LR fluids. 07/29/2020-added probiotics to her regimen. (7) Liver mass Is this a current diagnosis for this admission?: Yes Plan: Abdominal CT shows no evidence of the liver mass noted on chest CTA. Ruled out. No further investigations. (8) Morbid obesity with BMI of 50.0-59.9, adult Is this a current diagnosis for this admission?: Yes Plan: BMI of 54.5. This puts her at significantly increased risk of a complicated COVID-19 course of infection. 07/29/2020-unfortunately the steroids may only have her gain some weight transiently. Once fully recovered from the infection she should consider aggressive diet management and initiating an exercise program. 07/30/2020 Respiratory failure secondary to Covid pneumonia-did not require CPAP last night. Hopefully can remain on high flow nasal cannula with gradual taper. Continue steroids. I do not believe there is a necessity for IV antibiotics at this time. Her white count has never been significantly elevated and the only fever she had was the day of admission at 101.0 F. Covid pneumonia-continue supportive care including steroids Diarrhea-currently resolved Hyperglycemia due to diabetes-the patient can resume her Glyxambi once family brings the medication in. We will discontinue the sitagliptin when she starts the Glyxambi. Hopefully this will help with glucose control. I still think the steroids are contributing significantly. Also consider changing to a controlled carbohydrate diet level 3. Obesity-the patient's weight is down 4 kg since admission. Continue to weigh daily. I did have a chance to speak with the patient's mother during this encounter. This conversation did bring her up-to-date regarding her daughter's progress. 12/30/2019 Respiratory failure-we are finally starting to make some progress. The patient is down to 45 L/min on her high flow nasal cannula. We will continue to taper the oxygen. No change in steroids yet. No longer requiring IV antibiotics. Hyperglycemia-by starting the Glyxambi from home her last 2 Accu-Cheks were less than 200. I told her that we would monitor the Accu-Cheks and start adjusting the insulin dosing. We will be combination of adjusting the mealtime dose and Lantus. The sliding scale will remain unchanged. Morbid obesity-continue daily weights. The patient will likely lose several more kilograms prior to discharge. Recheck labs tomorrow 08/01/2020 Covid pneumonia with respiratory failure-high flow nasal cannula is down to 30 L/min I believe. She states that she still gets short of breath when she gets up to the commode but it is not as bad as it used to be and she recovers more quickly. She is still receiving intravenous steroids. She continues with the supplements as well. Hopefully she is beginning to turn the corner and I explained to her that our next goal will be nasal cannula. Hyperglycemia from diabetes-on the Glyxambi her Accu-Cheks are closer to 200 (190-210). I explained that as soon as I can begin to taper the steroids this should improve as well. She continues on diabetic diet. Morbid obesity-unfortunately it is a very significant risk factor with Covid infections. With her prolonged hospitalization she has lost some weight. Cont inue to monitor daily weights. Elevated D-dimer-her D-dimer was up to 6.91 despite ongoing therapy. I did recheck it today and is down to 2.64 which is excellent. Ferritin alkaline phosphatase are still elevated. Continue current treatment plan and monitor closely. The patient is certainly disappointed when I told her that she is likely going to be here through most of next week. I told her that it is possible to discharge home on oxygen therapy however she needs to be on a very low flow compared to what she is receiving now. 08/02/2020 Covid pneumonia with respiratory failure-Per the vital sign record it looks like she was tried for a brief period on nasal cannula. Her high flow was down to 20 L/min. I explained that we would definitely try a small window of nasal cannula later today. We will continue her steroid supplement as it is as well as the supplements typically given to Covid patients. The inflammatory markers continue to slowly improve including her ferritin and C-reactive protein. Hyperglycemia-glucose was 182 this morning and we are getting more consistently below 200. I may make a change in her Lantus once again based on her Accu-Cheks and sliding scale requirements. Morbid obesity-definitely a significantly increased risk factor with Covid infection. Expect further weight loss depending on how long she is in the hospital. She is consistently using the incentive spirometer. She now tracks her progress with the sliding arrow. She states that she has consistently been in the 500 range. I told her her next goal would be 750 and eventually 1 L but this will take some time. Encouraged her to continue her diligent efforts with the spirometer. 08/03/2020 Hypoxic respiratory failure from Covid pneumonia-patient is down to 10 L on high flow nasal cannula. I told her the next step would be nasal cannula possibly with Oxymizer. She now admits to significant impatience and wants to go home as soon as possible. She actually told me my deadline to discharge her was Tuesday. I told her that I would not discharge her until I feel she is medically appropriate. Inflammatory markers continue to improve. Morbid obesity-no change in treatment plan [id number] are improved. She is back on her Glyxambi. She also states that her mother droped off her Trulicity which she takes weekly. Unless that she be allowed to administer this dose. 08/04/2020 Hypoxic respiratory failure from Covid pneumonia-the patient did trial nasal cannula last night. She is currently on the Oxymizer. I am hoping that within several days she can be on nasal cannula. Because of her morbid obesity I believe the hypoxia will be longstanding as a result of the Covid pneumonia. I believe the active infection has resolved. She will likely need oxygen at home for probable morbid obesity hypoventilation complicating her Covid pneumonia. Diabetes mellitus-we will administer her Trulicity today. Continue Glyxambi. Continue other medications. Continue insulin regimen with sliding scale coverage. Continue Accu-Cheks. Morbid obesity-known to be a significant risk factor for Covid pneumonia. This may complicate her recovery and as noted above she will likely need oxygen therapy due to a combination of hypoventilation associated with her morbid obes ity and the Covid pneumonia. She will continue to use the incentive spirometer but her inspiratory phase continues to be short. - Time Time Spent with patient: Less than 15 minutes Medications reviewed and adjusted accordingly: Yes Anticipated Discharge Disposition: Home with Home Health Anticipated Discharge Timeframe: Unknown
[2020-08-04] MEDS: [UNRECOGNIZED DRUG - OTHER] SUBCUT SCH (17:22)
[2020-08-04] MEDS: DULAGLUTIDE SUBCUT SCH (17:22)
[2020-08-04] MEDS: PRAMIPEXOLE DI-HCL 0.5 MG TABLET PO SCH (17:23)
[2020-08-04] MEDS ORDERED: INSULIN GLARGINE,HUM.REC.ANLOG 1,000 UNIT/10 ML VIAL (PYX) SUBCUT ONE (21:59)
[2020-08-05] MEDS: ALBUTEROL SULFATE HFA (90 MCG/PUFF) 8 GM MDI IH SCH ×4 (00:15→22:08)
[2020-08-05 05:22] LABS: HEMATOCRIT 39.4 % (36.0-47.0); HEMOGLOBIN 13.8 g/dL (12.0-15.5); MEAN CORPUSCULAR HEMOGLOBIN 28.9 pg (27.0-33.4); MEAN CORPUSCULAR HGB CONC 34.9 g/dL (32.0-36.0); MEAN CORPUSCULAR VOLUME 83 fl (80-97); RED BLOOD COUNT 4.77 10^6/uL (3.72-5.28); WHITE BLOOD COUNT 11.6 10^3/uL (4.0-10.5)
[2020-08-05 05:47] LABS: ABSOLUTE LYMPHOCYTES# (MANUAL) 0.7 10^3/uL (0.5-4.7); ABSOLUTE MONOCYTES # (MANUAL) 0.9 10^3/uL (0.1-1.4); BAND NEUTROPHILS % (MANUAL) 1 % (3-5); BASOPHILS % (MANUAL) 0 % (0-2); EOSINOPHILS % (MANUAL) 0 % (0-6); LYMPHOCYTES % (MANUAL) 6 % (13-45); MONOCYTES % (MANUAL) 8 % (3-13); SEGMENTED NEUTROPHILS % (MAN) 85 % (42-78); TOTAL CELLS COUNTED 100
[2020-08-05 05:49] LABS: PLATELET CLUMPS PRESENT; PLATELET COMMENT ADEQUATE; PLATELET COUNT 218 10^3/uL (150-450); STOMATOCYTES SLIGHT
[2020-08-05 06:08] LABS: ALBUMIN 3.3 g/dL (3.5-5.0); ALKALINE PHOSPHATASE 180 U/L (38-126); ANION GAP 8 (5-19); ASPARTATE AMINO TRANSFERASE 22 U/L (14-36); BILIRUBIN,DIRECT 0.2 mg/dL (0.0-0.4); BILIRUBIN,TOTAL 0.8 mg/dL (0.2-1.3); BLOOD UREA NITROGEN 26 mg/dL (7-20); CALCIUM 9.1 mg/dL (8.4-10.2); CARBON DIOXIDE 23 mmol/L (22-30); CHLORIDE 102 mmol/L (98-107); GLUCOSE 172 mg/dL (75-110); POTASSIUM 4.9 mmol/L (3.6-5.0); TOTAL PROTEIN 5.7 g/dL (6.3-8.2)
[2020-08-05 06:25] LABS: C-REACTIVE PROTEIN 16.2 mg/L (<10.0)
[2020-08-05] MEDS: INSULIN LISPRO 100 UNIT/ML 3 ML VIAL SUBCUT SCH ×7 (08:26→22:06)
[2020-08-05] MEDS: EMPAGLIFLOZIN PO SCH (08:37)
[2020-08-05] MEDS: LINAGLIPTIN PO SCH (08:37)
[2020-08-05] MEDS: INSULIN GLARGINE,HUM.REC.ANLOG 1,000 UNIT/10 ML VIAL SUBCUT SCH ×2 (11:08→22:06)
[2020-08-05] MEDS: LACTOBACILLUS ACIDOPHILUS 250 MG TAB PO SCH ×2 (11:09→17:25)
[2020-08-05] MEDS: ASCORBIC ACID 500 MG TABLET PO SCH ×2 (11:09→17:24)
[2020-08-05] MEDS: CHOLECALCIFEROL (D3) 1,000 UNIT (25 MCG) TABLET PO SCH (11:09)
[2020-08-05] MEDS: METHYLPREDNISOLONE INJ 40 MG/1 ML SDV IV SCH ×2 (11:09→22:05)
[2020-08-05] MEDS: ENOXAPARIN SODIUM INJ 120 MG/0.8 ML DISP.SYRIN SUBCUT SCH ×2 (11:10→22:05)
[2020-08-05] MEDS: ZINC SULFATE 220 MG CAPSULE PO SCH (11:10)
[2020-08-05] MEDS: FAMOTIDINE 20 MG TABLET PO SCH ×2 (11:10→22:05)
[2020-08-05] MEDS: LISINOPRIL 10 MG TABLET PO SCH (11:10)
[2020-08-05] MEDS: GLIMEPIRIDE 4 MG TABLET PO SCH (11:10)
--- NOTE | 2020-08-05 15:04 | PDOC PROGRESS REPORT ---
Subjective Date:: 08/05/20 Subjective:: Patient continues to do well. Shortness of breath has resolved. She states her oxygen does drop when she ambulates to the bathroom occasionally. Otherwise she feels well. Denies chest pain. Reason For Visit: COVID PNA,HYPOXIA Physical Exam Vital Signs: Temp Pulse Resp BP Pulse Ox 97.7 F 89 18 93/78 L 91 L 08/05/20 11:54 08/05/20 14:00 08/05/20 11:54 08/05/20 11:54 08/05/20 11:54 Intake & Output 08/04/20 08/05/20 08/06/20 06:59 06:59 06:59 Intake Total 1062 702 510 Output Total 1400 Balance -338 702 510 Weight 137.8 kg 137.5 kg General appearance: PRESENT: no acute distress, cooperative Neck exam: ABSENT: JVD Respiratory exam: PRESENT: clear to auscultation tayla, unlabored Cardiovascular exam: PRESENT: +S1, +S2 GI/Abdominal exam: PRESENT: soft. ABSENT: tenderness Musculoskeletal exam: PRESENT: ambulatory Neurological exam: PRESENT: alert, awake Results Laboratory Results: 08/05/20 04:44 08/05/20 04:44 08/05/20 08/05/20 04:44 04:44 WBC 11.6 H RBC 4.77 Hgb 13.8 Hct 39.4 MCV 83 MCH 28.9 MCHC 34.9 RDW 15.0 H Plt Count 218 Seg Neutrophils % Not Reportable Sodium 133.2 L Potassium 4.9 Chloride 102 Carbon Dioxide 23 Anion Gap 8 BUN 26 H Creatinine 0.49 L Est GFR ( Amer) > 60 Glucose 172 H Calcium 9.1 Magnesium 2.2 Ferritin 413.00 H Total Bilirubin 0.8 AST 22 Alkaline Phosphatase 180 H C-Reactive Protein 16.2 H Total Protein 5.7 L Albumin 3.3 L 07/23/20 07/24/20 07/25/20 14:34 05:12 04:58 Creatine Kinase 424 H 145 H Troponin I < 0.012 NT-Pro-B Natriuret Pep 56 07/26/20 07/27/20 07/28/20 04:08 05:23 04:49 Creatine Kinase 41 22 L 38 Troponin I NT-Pro-B Natriuret Pep 07/29/20 04:53 Creatine Kinase 26 L Troponin I NT-Pro-B Natriuret Pep Impressions: Chest X-Ray 07/23/20 14:11 IMPRESSION: Low inspiratory lung volumes and diffuse patchy bilateral parenchymal opacities. Differential considerations include a multifocal pneumonia (including COVID-19), ARDS and pulmonary edema. Chest/Abdomen CTA 07/23/20 15:00 IMPRESSION: Extensive parenchymal opacities throughout the lungs typical of covid 19. No pulmonary emboli. Questionable liver mass. Evaluate when patient is stable. Abdomen/Pelvis CT 07/25/20 13:45 IMPRESSION: 1. BILATERAL PELVIC ADNEXAL CYSTS, MEASURING 4.5 CM AND 8 CM. PRESUMABLY OVA HÉCTOR. WOULD CONSIDER FOLLOW-UP PELVIC ULTRASOUND WHEN ABLE. 2. SMALL CORTICAL CYST IN THE RIGHT KIDNEY. 3. NO LIVER MASS. 4. EXTENSIVE GROUND-GLASS INFILTRATES IN THE LOWER LOBES CONSISTENT WITH COVID- 19. 5. NO OTHER SIGNIFICANT OR ACUTE FINDING IN THE ABDOMEN OR PELVIS ON CT SCAN WITH IV CONTRAST. Assessment and Plan - Diagnosis (1) Acute respiratory failure with hypoxia Is this a current diagnosis for this admission?: Yes Plan: She was on 8 L nasal cannula on my evaluation this morning. Her sats were good so I reduced her to 5 L nasal cannula. We will continue treatment of a COVID-19 and continue to monitor oxygen levels. Try to get patient down to about 4 L nasal cannula consistently before opting for discharge. (2) Pneumonia due to COVID-19 virus Is this a current diagnosis for this admission?: Yes (3) Diabetes mellitus type 2 in obese Is this a current diagnosis for this admission?: Yes (4) Tachypnea Is this a current diagnosis for this admission?: Yes (5) Metabolic acidosis Is this a current diagnosis for this admission?: Yes (6) Diarrhea Qualifiers: Diarrhea type: infectious Qualified Code(s): A09 - Infectious gastroen teritis and colitis, unspecified Is this a current diagnosis for this admission?: Yes (7) Liver mass Is this a current diagnosis for this admission?: Yes (8) Morbid obesity with BMI of 50.0-59.9, adult Is this a current diagnosis for this admission?: Yes - Time Time Spent with patient: Less than 15 minutes Anticipated Discharge Disposition: Home, Self Care Anticipated Discharge Timeframe: within 72 hours
[2020-08-05] MEDS: PRAMIPEXOLE DI-HCL 0.5 MG TABLET PO SCH (17:25)
[2020-08-06] MEDS: ALBUTEROL SULFATE HFA (90 MCG/PUFF) 8 GM MDI IH SCH ×3 (06:04→18:16)
[2020-08-06] MEDS: INSULIN LISPRO 100 UNIT/ML 3 ML VIAL SUBCUT SCH ×7 (07:59→22:35)
[2020-08-06] MEDS: LINAGLIPTIN PO SCH (08:00)
[2020-08-06] MEDS: EMPAGLIFLOZIN PO SCH (08:00)
[2020-08-06] MEDS: INSULIN GLARGINE,HUM.REC.ANLOG 1,000 UNIT/10 ML VIAL SUBCUT SCH ×2 (09:28→22:33)
[2020-08-06] MEDS: ENOXAPARIN SODIUM INJ 120 MG/0.8 ML DISP.SYRIN SUBCUT SCH ×2 (09:28→22:32)
[2020-08-06] MEDS: METHYLPREDNISOLONE INJ 40 MG/1 ML SDV IV SCH (09:28)
[2020-08-06] MEDS: FAMOTIDINE 20 MG TABLET PO SCH ×2 (09:29→22:33)
[2020-08-06] MEDS: LISINOPRIL 10 MG TABLET PO SCH (09:29)
[2020-08-06] MEDS: LACTOBACILLUS ACIDOPHILUS 250 MG TAB PO SCH ×2 (09:29→18:16)
[2020-08-06] MEDS: CHOLECALCIFEROL (D3) 1,000 UNIT (25 MCG) TABLET PO SCH (09:29)
[2020-08-06] MEDS: ZINC SULFATE 220 MG CAPSULE PO SCH (09:29)
[2020-08-06] MEDS: GLIMEPIRIDE 4 MG TABLET PO SCH (09:29)
[2020-08-06] MEDS: ASCORBIC ACID 500 MG TABLET PO SCH ×2 (09:29→18:16)
--- NOTE | 2020-08-06 13:08 | PDOC PROGRESS REPORT ---
Subjective Date:: 08/06/20 Subjective:: Patient feels well today. She ambulates in room without difficulty. She occasi onally does desaturate when ambulating. She becomes tearful today when I told her that she will not be discharged yet and she is crying that she wants to go home. Reason For Visit: COVID PNA,HYPOXIA Physical Exam Vital Signs: Temp Pulse Resp BP Pulse Ox 98.1 F 67 24 H 119/66 96 08/06/20 03:52 08/06/20 07:00 08/06/20 03:52 08/06/20 03:52 08/06/20 09:33 Intake & Output 08/05/20 08/06/20 08/07/20 06:59 06:59 06:59 Intake Total 702 1020 Output Total 2 Balance 702 1018 Weight 137.5 kg 136.6 kg General appearance: PRESENT: no acute distress, cooperative Neck exam: ABSENT: JVD Respiratory exam: PRESENT: clear to auscultation tayla, unlabored. ABSENT: wheezes Cardiovascular exam: PRESENT: +S1, +S2 GI/Abdominal exam: PRESENT: soft. ABSENT: rigid, tenderness Neurological exam: PRESENT: alert, awake, oriented to person, oriented to place, oriented to time Results Laboratory Results: 08/05/20 04:44 08/05/20 04:44 07/23/20 07/24/20 07/25/20 14:34 05:12 04:58 Creatine Kinase 424 H 145 H Troponin I < 0.012 NT-Pro-B Natriuret Pep 56 07/26/20 07/27/20 07/28/20 04:08 05:23 04:49 Creatine Kinase 41 22 L 38 Troponin I NT-Pro-B Natriuret Pep 07/29/20 04:53 Creatine Kinase 26 L Troponin I NT-Pro-B Natriuret Pep Impressions: Chest X-Ray 07/23/20 14:11 IMPRESSION: Low inspiratory lung volumes and diffuse patchy bilateral parenchymal opacities. Differential considerations include a multifocal pneumonia (including COVID-19), ARDS and pulmonary edema. Chest/Abdomen CTA 07/23/20 15:00 IMPRESSION: Extensive parenchymal opacities throughout the lungs typical of covid 19. No pulmonary emboli. Questionable liver mass. Evaluate when patient is stable. Abdomen/Pelvis CT 07/25/20 13:45 IMPRESSION: 1. BILATERAL PELVIC ADNEXAL CYSTS, MEASURING 4.5 CM AND 8 CM. PRESUMABLY OVARIAN. WOULD CONSIDER FOLLOW-UP PELVIC ULTRASOUND WHEN ABLE. 2. SMALL CORTICAL CYST IN THE RIGHT KIDNEY. 3. NO LIVER MASS. 4. EXTENSIVE GROUND-GLASS INFILTRATES IN THE LOWER LOBES CONSISTENT WITH COVID- 19. 5. NO OTHER SIGNIFICANT OR ACUTE FINDING IN THE ABDOMEN OR PELVIS ON CT SCAN WITH IV CONTRAST. Assessment and Plan - Diagnosis (1) Acute respiratory failure with hypoxia Is this a current diagnosis for this admission?: Yes (2) Pneumonia due to COVID-19 virus Is this a current diagnosis for this admission?: Yes (3) Diabetes mellitus type 2 in obese Is this a current diagnosis for this admission?: Yes (4) Tachypnea Is this a current diagnosis for this admission?: Yes (5) Metabolic acidosis Is this a current diagnosis for this admission?: Yes (6) Diarrhea Qualifiers: Diarrhea type: infectious Qualified Code(s): A09 - Infectious gastroenteritis and colitis, unspecified Is this a current diagnosis for this admission?: Yes (7) Liver mass Is this a current diagnosis for this admission?: Yes (8) Morbid obesity with BMI of 50.0-59.9, adult Is this a current diagnosis for this admission?: Yes - Plan Summary Summary: Patient is doing well. She tolerated being on 5 L nasal cannula throughout yesterday. Today I have reduced her oxygen down to 4 L nasal cannula. I will have patient ambulate to see how much oxygen she requires on ambulation. We will use this to plan towards setting her up with the right amount of oxygen for discharge. She is very eager to go home but I explained to her that we cannot discharge her today just yet. - Time Time Spent with patient: Less than 15 minutes Anticipated Discharge Disposition: Home, Self Care Anticipated Discharge Timeframe: within 36 hours
[2020-08-06] MEDS: PREDNISONE 10 MG TABLET PO SCH ×2 (16:54→22:32)
[2020-08-06] MEDS: PRAMIPEXOLE DI-HCL 0.5 MG TABLET PO SCH (18:16)
[2020-08-07] MEDS: ALBUTEROL SULFATE HFA (90 MCG/PUFF) 8 GM MDI IH SCH ×3 (00:33→13:19)
[2020-08-07] MEDS: INSULIN LISPRO 100 UNIT/ML 3 ML VIAL SUBCUT SCH ×4 (08:40→11:48)
[2020-08-07] MEDS: PREDNISONE 10 MG TABLET PO SCH (10:17)
[2020-08-07] MEDS: ASCORBIC ACID 500 MG TABLET PO SCH (10:17)
[2020-08-07] MEDS: LACTOBACILLUS ACIDOPHILUS 250 MG TAB PO SCH (10:18)
[2020-08-07] MEDS: CHOLECALCIFEROL (D3) 1,000 UNIT (25 MCG) TABLET PO SCH (10:18)
[2020-08-07] MEDS: FAMOTIDINE 20 MG TABLET PO SCH (10:19)
[2020-08-07] MEDS: LISINOPRIL 10 MG TABLET PO SCH (10:19)
[2020-08-07] MEDS: GLIMEPIRIDE 4 MG TABLET PO SCH (10:19)
[2020-08-07] MEDS: ZINC SULFATE 220 MG CAPSULE PO SCH (10:19)
[2020-08-07] MEDS: EMPAGLIFLOZIN PO SCH (10:20)
[2020-08-07] MEDS: LINAGLIPTIN PO SCH (10:20)
[2020-08-07] MEDS: ENOXAPARIN SODIUM INJ 120 MG/0.8 ML DISP.SYRIN SUBCUT SCH (10:21)
[2020-08-07] MEDS: INSULIN GLARGINE,HUM.REC.ANLOG 1,000 UNIT/10 ML VIAL SUBCUT SCH (11:48)
--- NOTE | 2020-08-07 14:22 | PDOC DISCHARGE SUMMARY ---
Impression - Admit/DC Date/PCP Admission Date/Primary Care Provider: 07/23/20 17:47 MICKEY HECTOR MD Discharge Date: 08/07/20 - Discharge Diagnosis (1) Acute respiratory failure with hypoxia Is this a current diagnosis for this admission?: Yes (2) Pneumonia due to COVID-19 virus Is this a current diagnosis for this admission?: Yes (3) Diabetes mellitus type 2 in obese Is this a current diagnosis for this admission?: Yes (4) Tachypnea Is this a current diagnosis for this admission?: Yes (5) Metabolic acidosis Is this a current diagnosis for this admission?: Yes (6) Diarrhea Is this a current diagnosis for this admission?: Yes (7) Morbid obesity with BMI of 50.0-59.9, adult Is this a current diagnosis for this admission?: Yes - Additional Information Resuscitation Status: Full Code Discharge Activity: Energy Conservation, Keep Legs Elevated, Slowly Increase Activity Referrals: MICKEY HECTOR MD [Primary Care Provider] - 08/13/20 11:00 am Prescriptions: Prednisone [Deltasone 5 mg Tablet] See Protocol PO BID #33 tablet Albuterol Sulfate [Proair Respiclick] 2 puff IH QIDP PRN #1 inhaler PRN Reason: Rivaroxaban [Xarelto 10 mg Tablet] 10 mg PO QPM #30 tablet Home Medications: Albuterol Sulfate [Proair HFA Inhalation Aerosol 8.5 gm MDI] 1 puff IH Q4HP PRN 07/23/20 Benzonatate [Tessalon Perles 100 mg Capsule] 100 mg PO TID 07/23/20 Empagliflozin/Linagliptin [Glyxambi 25 mg-5 mg Tablet] 1 each PO QAM 07/23/20 Glimepiride [Amaryl 4 mg Tablet] 4 mg PO DAILY 07/23/20 Lisinopril [Prinivil 10 mg Tablet] 10 mg PO DAILY 07/23/20 Pramipexole Di-HCl [Mirapex 0.5 mg Tablet] 1 mg PO QPM 07/23/20 Albuterol Sulfate [Proair Respiclick] 2 puff IH QIDP PRN #1 inhaler 08/07/20 Prednisone [Deltasone 5 mg Tablet] See Protocol PO BID #33 tablet 08/07/20 Rivaroxaban [Xarelto 10 mg Tablet] 10 mg PO QPM #30 tablet 08/07/20 History of Present Illiness History of Present Illness: GERALD WORLEY is a 40 year old female with morbid obesity, diabetes mellitus type 2, hypertension, who presents to the hospital for evaluation of progressive shortness of breath for the past 3 days. She has also been having a worsening cough nonproductive of sputum. She denies any hemoptysis. She also has been spiking fevers. Her symptoms started on Tuesday at which time she went to [facility] in [place] to get tested for Covid. She was infor med today that her Covid test came back positive. She had doses associated diarrhea nausea and vomiting. When she presented to the ER, ER provider notifies me that her pulse ox was in the high 70s to low 80s. She was placed on nasal cannula without much improvement and subsequently placed on the BiPAP. She has been tachypneic throughout in the 40s. She is conversationally dyspneic. Hospital Course Hospital Course: Patient was admitted to the hospital with shortness of breath, respiratory distress and increased work of breathing. She was also noted to be significantly hypoxic with initial presentation at a point that she requiring CPAP at 100% FiO2. She was noted to be Covid positive. She also had Covid pneumonia which was responsible for hypoxia. Patient was initially very bad shape and received treatment with remdesivir, ivermectin, steroids, anticoagulation amongst other things. CT chest showed no evidence of PE but showed very prominent high degree of pneumonia bilaterally. Patient has been here for over 2 weeks now and has gradually shown improvement in oxygenation and his pneumonia. She also received broad antibiotics to cover in case of any bacterial infection which seem to actually help. Patient has been gradually weaned to a high flow nasal cannula now has been stable on 4 L nasal cannula for a couple of days now. She has been ambulated yesterday and today and deemed to require about 6 L of nasal cannula while walking and 4 L of nasal cannula while at rest. resource management planner has set patient up with oxygen for discharge. Patient being discharged home on prophylactic dose of Xarelto for 1 month given high risk of VTE from Covid and with a slow taper of prednisone. She is also being given albuterol inhaler. She has been given strict instructions to monitor pulse oximetry very closely and parameters given. Physical Exam Vital Signs: Temp Pulse Resp BP Pulse Ox 97.5 F 96 19 102/66 94 08/07/20 11:24 08/07/20 11:24 08/07/20 11:24 08/07/20 11:24 08/07/20 12:54 Intake & Output 08/06/20 08/07/20 08/08/20 06:59 06:59 06:59 Intake Total 1020 2631 Output Total 2 0 Balance 1018 2631 Weight 136.6 kg 135.2 kg General appearance: PRESENT: no acute distress, cooperative Neck exam: ABSENT: JVD Respiratory exam: PRESENT: clear to auscultation tayla, symmetrical, unlabored. ABSENT: tachypnea, wheezes Cardiovascular exam: PRESENT: +S1, +S2. ABSENT: tachycardia GI/Abdominal exam: PRESENT: soft. ABSENT: tenderness Musculoskeletal exam: PRESENT: ambulatory Neurological exam: PRESENT: alert, awake, oriented to person, oriented to place, oriented to time Results Laboratory Results: WBC 11.6 10^3/uL (4.0-10.5) H 08/05/20 04:44 RBC 4.77 10^6/uL (3.72-5.28) 08/05/20 04:44 Hgb 13.8 g/dL (12.0-15.5) 08/05/20 04:44 Hct 39.4 % (36.0-47.0) 08/05/20 04:44 MCV 83 fl (80-97) 08/05/20 04:44 MCH 28.9 pg (27.0-33.4) 08/05/20 04:44 MCHC 34.9 g/dL (32.0-36.0) 08/05/20 04:44 RDW 15.0 % (11.5-14.0) H 08/05/20 04:44 Plt Count 218 10^3/uL (150-450) 08/05/20 04:44 Lymph % (Auto) Not Reportable 08/05/20 04:44 Vance % (Auto) Not Reportable 08/05/20 04:44 Eos % (Auto) Not Reportable 08/05/20 04:44 Baso % (Auto) Not Reportable 08/05/20 04:44 Absolute Neuts (auto) Not Reportable 08/05/20 04:44 Absolute Lymphs (auto) Not Reportable 08/05/20 04:44 Absolute Monos (auto) Not Reportable 08/05/20 04:44 Absolute Eos (auto) Not Reportable 08/05/20 04:44 Absolute Basos (auto) Not Reportable 08/05/20 04:44 Total Counted 100 08/05/20 04:44 Seg Neutrophils % Not Reportable 08/05/20 04:44 Seg Neuts % (Manual) 85 % (42-78) H 08/05/20 04:44 Band Neutrophils % 1 % (3-5) L 08/05/20 04:44 Lymphocytes % (Manual) 6 % (13-45) L 08/05/20 04:44 Monocytes % (Manual) 8 % (3-13) 08/05/20 04:44 Eosinophils % (Manual) 0 % (0-6) 08/05/20 04:44 Basophils % (Manual) 0 % (0-2) 08/05/20 04:44 Abs Neuts (Manual) 10.0 10^3/uL (1.7-8.2) H 08/05/20 04:44 Abs Lymphs (Manual) 0.7 10^3/uL (0.5-4.7) 08/05/20 04:44 Abs Monocytes (Manual) 0.9 10^3/uL (0.1-1.4) 08/05/20 04:44 Absolute Eos (Manual) 0.0 10^3/uL (0.0-0.6) 08/05/20 04:44 Abs Basophils (Manual) 0.0 10^3/uL (0.0-0.2) 08/05/20 04:44 Toxic Granulation 1+ 07/31/20 05:03 Clumped Platelets PRESENT 08/05/20 04:44 Platelet Comment ADEQUATE 08/05/20 04:44 Polychromasia SLIGHT 07/27/20 05:23 Poikilocytosis SLIGHT 07/31/20 05:03 Anisocytosis SLIGHT 07/31/20 05:03 Ovalocytes SLIGHT 07/31/20 05:03 Stomatocytes SLIGHT 08/05/20 04:44 Schistocytes SLIGHT 07/31/20 05:03 PT 13.1 SEC (11.4-15.4) 07/24/20 05:12 INR 0.97 07/24/20 05:12 APTT 30.3 SEC (23.5-35.8) 07/24/20 05:12 D-Dimer 1.58 ug/mL (0.00-0.50) H 08/05/20 04:44 Carbonic Acid 0.73 mmol/L (1.05-1.35) L 07/24/20 14:55 HCO3/H2CO3 Ratio 19:1 07/24/20 14:55 ABG pH 7.39 (7.35-7.45) 07/24/20 14:55 ABG pCO2 24.2 mmHg (35-45) L 07/24/20 14:55 ABG pO2 83.3 mmHg (80-100) 07/24/20 14:55 ABG HCO3 14.2 mmol/L (20-24) L 07/24/20 14:55 ABG Total CO2 15.0 mmol/L (21-25) L 07/24/20 14:55 ABG O2 Saturation 96.3 % (94-98) 07/24/20 14:55 ABG Base Excess -8.9 mmol/L 07/24/20 14:55 VBG pH 7.39 (7.30-7.42) 07/25/20 16:11 VBG pCO2 36.2 mmHg (35-63) 07/25/20 16:11 VBG HCO3 21.3 mmol/L (20-32) 07/25/20 16:11 VBG Base Excess -3.0 mmol/L 07/25/20 16:11 FiO2 70% 07/24/20 14:55 Sodium 133.2 mmol/L (137-145) L 08/05/20 04:44 Potassium 4.9 mmol/L (3.6-5.0) 08/05/20 04:44 Chloride 102 mmol/L (98-107) 08/05/20 04:44 Carbon Dioxide 23 mmol/L (22-30) 08/05/20 04:44 Anion Gap 8 (5-19) 08/05/20 04:44 BUN 26 mg/dL (7-20) H 08/05/20 04:44 Creatinine 0.49 mg/dL (0.52-1.25) L 08/05/20 04:44 Est GFR ( Amer) > 60 (>60) 08/05/20 04:44 Est GFR (MDRD) Non-Af > 60 (>60) 08/05/20 04:44 Glucose 172 mg/dL (75-110) H 08/05/20 04:44 POC Glucose 101 mg/dL (70-110) 08/07/20 11:23 Hemoglobin A1c % 7.9 % (4.7-6.0) H 07/28/20 04:49 Lactic Acid 1.5 mmol/L (0.7-2.1) 07/24/20 17:08 Calcium 9.1 mg/dL (8.4-10.2) 08/05/20 04:44 Magnesium 2.2 mg/dL (1.6-2.3) 08/05/20 04:44 Ferritin 413.00 ng/mL (6.2-137.0) H 08/05/20 04:44 Total Bilirubin 0.8 mg/dL (0.2-1.3) 08/05/20 04:44 Direct Bilirubin 0.2 mg/dL (0.0-0.4) 08/05/20 04:44 Neonat Total Bilirubin Not Reportable 08/05/20 04:44 Neonat Direct Bilirubin Not Reportable 08/05/20 04:44 Neonat Indirect Bili Not Reportable 08/05/20 04:44 AST 22 U/L (14-36) 08/05/20 04:44 ALT 42 U/L (<35) H 08/05/20 04:44 Alkaline Phosphatase 180 U/L (38-126) H 08/05/20 04:44 Lactate Dehydrogenase 351 U/L (120-246) H 08/05/20 04:44 Creatine Kinase 26 U/L (30-135) L 07/29/20 04:53 Troponin I < 0.012 ng/mL 07/23/20 14:34 C-Reactive Protein 16.2 mg/L (<10.0) H 08/05/20 04:44 NT-Pro-B Natriuret Pep 56 pg/mL (<125) 07/23/20 14:34 Total Protein 5.7 g/dL (6.3-8.2) L 08/05/20 04:44 Albumin 3.3 g/dL (3.5-5.0) L 08/05/20 04:44 Stl C. Difficile GDH Ag NEGATIVE (NEGATIVE) 07/25/20 12:52 Stl C.difficile Tox A&B NEGATIVE (NEGATIVE) 07/25/20 12:52 Time Trough Drawn 2156 07/28/20 21:56 Vancomycin Trough 10.9 ug/mL (5.0-20.0) 07/28/20 21:56 Influenza A (Rapid) NEGATIVE (NEGATIVE) 07/23/20 15:31 Influenza B (Rapid) NEGATIVE (NEGATIVE) 07/23/20 15:31 Blood Type A POSITIVE 07/23/20 19:07 Antibody Screen NEGATIVE 07/23/20 19:07 07/23/20 14:34 Troponin I < 0.012 NT-Pro-B Natriuret Pep 56 Impressions: Chest X-Ray 07/23/20 14:11 IMPRESSION: Low inspiratory lung volumes and diffuse patchy bilateral parenchymal opacities. Differential considerations include a multifocal pneumonia (including COVID-19), ARDS and pulmonary edema. Chest/Abdomen CTA 07/23/20 15:00 IMPRESSION: Extensive parenchymal opacities throughout the lungs typical of covid 19. No pulmonary emboli. Questionable liver mass. Evaluate when patient is stable. Abdomen/Pelvis CT 07/25/20 13:45 IMPRESSION: 1. BILATERAL PELVIC ADNEXAL CYSTS, MEASURING 4.5 CM AND 8 CM. PRESUMABLY OVARIAN. WOULD CONSIDER FOLLOW-UP PELVIC ULTRASOUND WHEN ABLE. 2. SMALL CORTICAL CYST IN THE RIGHT KIDNEY. 3. NO LIVER MASS. 4. EXTENSIVE GROUND-GLASS INFILTRATES IN THE LOWER LOBES CONSISTENT WITH COVID- 19. 5. NO OTHER SIGNIFICANT OR ACUTE FINDING IN THE ABDOMEN OR PELVIS ON CT SCAN WITH IV CONTRAST. Plan Time Spent: Greater than 30 Minutes Stroke Is this a Stroke Patient?: No Acute Heart Failure Is this a Heart Failure Patient?: No
[2020-08-07 15:36] VITALS: BP 143/73
== END 2020-08-07 16:30 | disposition home or self-care (01) | DRG 177 ==
LOC: ER 14:02 → EH 17:47 → 3W 21:00
PROVIDERS: ADMIT Internal Medicine; ATTEND Internal Medicine
PROC: XW033E5 Introduction of Remdesivir Anti-infective into Peripheral Vein, Percutaneous Approach, New Technology Group 5 (ICD-10-PCS; principal; 2020-07-23)
PROC: XW13325 Transfusion of Convalescent Plasma (Nonautologous) into Peripheral Vein, Percutaneous Approach, New Technology Group 5 (ICD-10-PCS; 2020-07-24)
DX: U07.1 COVID-19 (principal); J12.89 Other viral pneumonia; J96.01 Acute respiratory failure with hypoxia; Z68.43 Body mass index [BMI] 50.0-59.9, adult; A09 Infectious gastroenteritis and colitis, unspecified; E87.2 Acidosis; E11.65 Type 2 diabetes mellitus with hyperglycemia; E66.01 Morbid (severe) obesity due to excess calories; I10 Essential (primary) hypertension; E78.5 Hyperlipidemia, unspecified; R06.82 Tachypnea, not elsewhere classified; Z83.3 Family history of diabetes mellitus; Z82.49 Family history of ischemic heart disease and other diseases of the circulatory system; Z79.899 Other long term (current) drug therapy; Z79.84 Long term (current) use of oral hypoglycemic drugs; Z88.6 Allergy status to analgesic agent
CPT/HCPCS: 36415; 36430; 36600; 71045; 71275; 74177; 80048; 80053; 80202; 82550; 82565; 82728; 82803; 82962; 83036; 83605; 83615; 83735; 83880; 84484; 85025; 85027; 85379; 85610; 85730; 86140; 86850; 86900; 86901; 87040; 87070; 87205; 87324; 87449; 87804; 93005; 93010; 94640; 94660; 96361; 96374; 99285; J0456; J0692; J0696; J1100; J1650; J1815; J1940; J2060; J2270; J2920; J3370; J3490; J7030; J7050; J7060; J7120; J7512; J7608; J7613

== ENCOUNTER → 2020-08-27 | Outpatient (CLI) | payer OTHER ==
--- NOTE | 2020-08-27 17:05 | RADIOLOGY REPORT (SQ) ---
EXAM DESCRIPTION: MRI HEAD WITHOUT IMAGES COMPLETED DATE/TIME: 08/27/2020 4:50 pm REASON FOR STUDY: WEAKNESS OF LEFT UPPER EXTREMITY R29.898 OTH SYMPTOMS AND SIGNS INVOLVING THE MUS CULOSKELETAL COMPARISON: None. TECHNIQUE: Multiplanar imaging includes non-contrasted T1, T2, FLAIR, and diffusion with ADC map seq uences. Images stored on PACS. LIMITATIONS: None. FINDINGS: ANATOMY: No anomalies. Normal vascular flow voids. Pituitary fossa normal. CSF SPACES: Normal in size and contour. No hemorrhage. CEREBRUM: Sulci and gyri normal in size and contour. Normal white matter signal on FLAIR imaging. No evidence of hemorrhage, mass, or extraaxial fluid collection. POSTERIOR FOSSA: No signal alteration. No hemorrhage. No edema, masses or mass effect. Internal deanna tory canals, cerebello-pontine angles, mastoids normal. DIFFUSION IMAGING: Negative for acute or sub-acute infarction. ORBITS: No masses. Globes normal. PARANASAL SINUSES: No fluid levels. Mucosa normal. OTHER: No other significant finding. IMPRESSION: NORMAL MRI OF THE BRAIN WITHOUT INTRAVENOUS GADOLINIUM CONTRAST. EVIDENCE OF ACUTE STROKE: NO. TECHNICAL DOCUMENTATION: JOB ID: [id number] 2010 [employer]- All Rights Reserved Reading location - IP/workstation name: [email or web address]
== END ==
LOC: RAD 15:19
PROVIDERS: ATTEND Family Medicine
DX: R29.898 Other symptoms and signs involving the musculoskeletal system (principal)
CPT/HCPCS: 70551